=== PATIENT | female | born 1950 | race Caucasian/White ===

== ENCOUNTER 2016-12-31 10:29 | Inpatient (IN) | payer MEDICARE, MEDICAID ==
[~2016-12-31] VITALS: Ht 154.9 cm; Wt 43.1 kg
[~2016-12-31 10:29] MED LIST: AZIT250T PO; DSS100 PO; FLUO-191 PO; FLUT1DIS3 IH; LEVO50 PO; LITH300C3 PO; OMEP20 PO; PRED20 PO; QUET100T PO; VITAD1000 PO
[2016-12-31] MEDS ORDERED: HALOPERIDOL 5 MG TABLET PO PRN (11:30)
[2016-12-31] MEDS ORDERED: LORazepam 1 MG TABLET PO PRN (11:30)
[2016-12-31 11:40] VITALS: BP 125/91
[2016-12-31] MEDS ORDERED: PNEUMOCOCCAL VACCINE POLYVALENT 0.5 ML VIAL [PPSV23] IM ONE (13:15)
[2016-12-31 14:23] VITALS: BP 125/91
[2016-12-31] MEDS ORDERED: FLUT1BLS IH (14:31)
[2016-12-31] MEDS ORDERED: CARV3 PO (14:31)
[2016-12-31] MEDS ORDERED: ESTR-95 PO (14:31)
[2016-12-31] MEDS ORDERED: BUDE10.2 IH (14:31)
[2016-12-31] MEDS ORDERED: AMLO-512 PO (14:31)
[2016-12-31] MEDS ORDERED: ALBU8HFA4 IH (14:31)
[2016-12-31] MEDS ORDERED: PERMETHRIN 5% 60 GM CREAM TP ONE (15:15)
[2016-12-31 16:01] VITALS: BP 136/79
[2016-12-31] MEDS: ALBUTEROL SULFATE HFA 90 MCG/PUFF 8 GM INHALER IH PRN (16:21)
[2016-12-31] MEDS: QUEtiapine FUMARATE 100 MG TABLET PO SCH (17:10)
[2016-12-31] MEDS: LITHIUM CARBONATE 300 MG CAPSULE PO SCH (17:10)
[2017-01-01 01:29] VITALS: BP 108/68
[2017-01-01] MEDS: ALBUTEROL SULFATE HFA 90 MCG/PUFF 8 GM INHALER IH PRN (06:51)
[2017-01-01 07:13] LABS: BASOPHILS % (AUTO) 0.5 % (0.0-2.0); EOSINOPHILS % (AUTO) 2.5 % (1.0-6.0); HEMATOCRIT 42.3 % (36-46); HEMOGLOBIN 14.1 g/dL (12.0-16.0); LYMPHOCYTES # (AUTO) 1.9 K/uL (1.0-4.8); LYMPHOCYTES % (AUTO) 15.8 % (22.0-44.0); MEAN CORPUSCULAR HEMOGLOBIN 29.7 pg (26.0-34.0); MEAN CORPUSCULAR HGB CONC 33.2 G/dL (31.0-37.0); MEAN CORPUSCULAR VOLUME 89 fL (80-100); MONOCYTES # (AUTO) 0.6 K/uL (0.1-1.0); MONOCYTES % (AUTO) 4.7 % (2.0-9.0); NEUTROPHILS # (AUTO) 9.3 K/uL (1.8-7.7); NEUTROPHILS % (AUTO) 76.5 % (40.0-70.0); PLATELET COUNT (AUTO) 310 K/uL (150-450); RED BLOOD CELL COUNT(AUTO) 4.74 MIL/uL (4.00-5.20); RED CELL DISTRIBUTION WIDTH 13.7 % (11.5-14.5); WHITE BLOOD COUNT (AUTO) 12.2 K/uL (4.5-11.0)
[2017-01-01 07:26] LABS: LITHIUM 0.21 mmol/L (0.60-1.20)
[2017-01-01] MEDS ORDERED: BACITRACIN 28.4 GM OINTMENT TP PRN (08:00)
[2017-01-01] MEDS ORDERED: MAG HYDROX/AL HYDROX/SIMETH ES 30 ML SUSPENSION UDCUP PO PRN (08:00)
[2017-01-01] MEDS ORDERED: CloNIDine HCL 0.1 MG TABLET PO PRN (08:00)
[2017-01-01] MEDS ORDERED: MAGNESIUM HYDROXIDE SUSPENSION 30 ML UDCUP PO PRN (08:00)
[2017-01-01] MEDS ORDERED: LOPERAMIDE HCL 2 MG CAPSULE PO PRN (08:00)
[2017-01-01] MEDS ORDERED: PETROLATUM,WHITE 71 GM JELLY TP PRN (08:00)
[2017-01-01] MEDS ORDERED: BENZOCAINE/MENTHOL LOZENGE MM PRN (08:00)
[2017-01-01] MEDS ORDERED: ONDANSETRON HCL 4 MG TABLET PO PRN (08:00)
[2017-01-01 08:09] VITALS: BP 92/47
[2017-01-01 08:15] LABS: ALANINE AMINOTRANSFERASE 13 U/L (12-78); ALBUMIN 3.1 g/dL (3.4-5.0); ANION GAP 8 mmol/L (8-16); ASPARTATE AMINOTRANSFERASE 9 U/L (15-37); BILIRUBIN,TOTAL 0.2 mg/dL (0.1-1.0); CALCIUM, TOTAL 8.7 mg/dL (8.8-10.5); CARBON DIOXIDE 26 mmol/L (22-29); CHLORIDE 109 mmol/L (98-107); CHOL/HDL RATIO 3.2 (3.9-5.7); CREATININE 0.62 mg/dL (0.60-1.30); GLOMERULAR FILTR. RATE CALC > 60 mL/min (>60); POTASSIUM 3.8 mmol/L (3.5-5.1); SODIUM SERUM 143 mmol/L (136-145); TOTAL PROTEIN, SERUM 6.2 g/dL (6.4-8.2); UREA NITROGEN, BLOOD 11 mg/dL (7-18)
[2017-01-01] MEDS: DOCUSATE SODIUM 100 MG CAPSULE PO SCH (08:20)
[2017-01-01] MEDS: CHOLECALCIFEROL (VIT D3) 1,000 UNITS TABLET PO SCH (08:21)
[2017-01-01] MEDS: LITHIUM CARBONATE 300 MG CAPSULE PO SCH ×3 (08:21→16:16)
[2017-01-01] MEDS: QUEtiapine FUMARATE 100 MG TABLET PO SCH ×3 (08:21→16:16)
[2017-01-01] MEDS: OMEPRAZOLE 20 MG CAPSULE PO SCH (08:21)
[2017-01-01] MEDS: FLUoxetine HCL 20 MG CAPSULE PO SCH (08:21)
[2017-01-01 08:31] VITALS: BP 120/72
[2017-01-01] MEDS: AmLODIPine BESYLATE 10 MG TABLET PO SCH (08:36)
[2017-01-01] MEDS ORDERED: PERMETHRIN 5% 60 GM CREAM TP ONE (09:10)
[2017-01-01] MEDS: BUDESONIDE/FORMOTEROL FUMARATE 160-4.5 MCG/PUFF 6.9 GM INHALER IH SCH ×2 (14:34→16:17)
[2017-01-01 16:06] VITALS: BP 100/64
[2017-01-01] MEDS: ESTRADIOL 1 MG TABLET PO SCH (16:17)
[2017-01-01] MEDS: SIMVASTATIN 10 MG TABLET PO SCH (20:03)
[2017-01-02 06:30] VITALS: BP 124/74
[2017-01-02] MEDS: LEVOTHYROXINE SODIUM 50 MCG TABLET PO SCH (06:34)
[2017-01-02] MEDS: ALBUTEROL SULFATE HFA 90 MCG/PUFF 8 GM INHALER IH PRN ×2 (07:09→12:27)
[2017-01-02 08:05] VITALS: BP 117/76
[2017-01-02] MEDS: CHOLECALCIFEROL (VIT D3) 1,000 UNITS TABLET PO SCH (08:26)
[2017-01-02] MEDS: OMEPRAZOLE 20 MG CAPSULE PO SCH (08:26)
[2017-01-02] MEDS: DOCUSATE SODIUM 100 MG CAPSULE PO SCH (08:26)
[2017-01-02] MEDS: ESTRADIOL 1 MG TABLET PO SCH (08:26)
[2017-01-02] MEDS: LITHIUM CARBONATE 300 MG CAPSULE PO SCH ×3 (08:26→16:31)
[2017-01-02] MEDS: QUEtiapine FUMARATE 100 MG TABLET PO SCH ×3 (08:27→16:31)
[2017-01-02] MEDS: AmLODIPine BESYLATE 10 MG TABLET PO SCH (08:27)
[2017-01-02] MEDS: FLUoxetine HCL 20 MG CAPSULE PO SCH (08:27)
[2017-01-02] MEDS: BUDESONIDE/FORMOTEROL FUMARATE 160-4.5 MCG/PUFF 6.9 GM INHALER IH SCH ×2 (08:29→16:31)
[2017-01-02 14:54] VITALS: BP 114/72
[2017-01-02] MEDS: ACETAMINOPHEN 325 MG TABLET PO PRN (14:54)
[2017-01-02 16:06] VITALS: BP_SYST 117; BP_SYST 98; BP_DIAS 57; BP_DIAS 86
[2017-01-02] MEDS: SIMVASTATIN 10 MG TABLET PO SCH (20:29)
[2017-01-03] MEDS: LEVOTHYROXINE SODIUM 50 MCG TABLET PO SCH (06:09)
[2017-01-03 06:24] VITALS: BP 112/71
[2017-01-03] MEDS: FLUoxetine HCL 20 MG CAPSULE PO SCH (08:09)
[2017-01-03] MEDS: QUEtiapine FUMARATE 100 MG TABLET PO SCH ×3 (08:09→16:24)
[2017-01-03] MEDS: CHOLECALCIFEROL (VIT D3) 1,000 UNITS TABLET PO SCH (08:09)
[2017-01-03] MEDS: LITHIUM CARBONATE 300 MG CAPSULE PO SCH ×3 (08:09→16:24)
[2017-01-03] MEDS: DOCUSATE SODIUM 100 MG CAPSULE PO SCH (08:09)
[2017-01-03] MEDS: ESTRADIOL 1 MG TABLET PO SCH (08:09)
[2017-01-03] MEDS: PredniSONE 20 MG TABLET PO SCH (08:09)
[2017-01-03] MEDS: AmLODIPine BESYLATE 10 MG TABLET PO SCH (08:09)
[2017-01-03] MEDS: OMEPRAZOLE 20 MG CAPSULE PO SCH (08:09)
[2017-01-03] MEDS: BUDESONIDE/FORMOTEROL FUMARATE 160-4.5 MCG/PUFF 6.9 GM INHALER IH SCH ×2 (08:12→16:24)
[2017-01-03 08:30] VITALS: BP 113/69
[2017-01-03 09:01] LABS: BASOPHILS # (AUTO) 0.08 K/uL (0.00-0.20); BASOPHILS % (AUTO) 0.8 % (0.0-2.0); EOSINOPHILS # (AUTO) 0.32 K/uL (0.00-0.70); EOSINOPHILS % (AUTO) 3.07 % (1.0-6.0); HEMATOCRIT 43.2 % (36-46); HEMOGLOBIN 14.2 g/dL (12.0-16.0); LYMPHOCYTES # (AUTO) 1.7 K/uL (1.0-4.8); LYMPHOCYTES % (AUTO) 16.1 % (22.0-44.0); MEAN CORPUSCULAR HEMOGLOBIN 29.3 pg (26.0-34.0); MEAN CORPUSCULAR HGB CONC 32.8 G/dL (31.0-37.0); MEAN CORPUSCULAR VOLUME 89 fL (80-100); MONOCYTES # (AUTO) 0.5 K/uL (0.1-1.0); MONOCYTES % (AUTO) 5.1 % (2.0-9.0); NEUTROPHILS # (AUTO) 7.9 K/uL (1.8-7.7); PLATELET COUNT (AUTO) 268 K/uL (150-450); RED BLOOD CELL COUNT(AUTO) 4.83 MIL/uL (4.00-5.20); RED CELL DISTRIBUTION WIDTH 13.7 % (11.5-14.5); WHITE BLOOD COUNT (AUTO) 10.5 K/uL (4.5-11.0)
[2017-01-03 12:19] VITALS: BP 110/70
[2017-01-03] MEDS: ACETAMINOPHEN 325 MG TABLET PO PRN (12:19)
[2017-01-03 16:04] VITALS: BP 128/77
[2017-01-03] MEDS: SIMVASTATIN 10 MG TABLET PO SCH (20:09)
[2017-01-04 01:34] VITALS: BP 115/75
[2017-01-04 06:55] VITALS: BP 117/63
[2017-01-04] MEDS: LEVOTHYROXINE SODIUM 50 MCG TABLET PO SCH (06:59)
[2017-01-04] MEDS: ALBUTEROL SULFATE HFA 90 MCG/PUFF 8 GM INHALER IH PRN ×2 (07:08→15:45)
[2017-01-04] MEDS: ACETAMINOPHEN 325 MG TABLET PO PRN (07:09)
[2017-01-04 08:39] VITALS: BP 114/75
[2017-01-04] MEDS: FLUoxetine HCL 20 MG CAPSULE PO SCH (08:44)
[2017-01-04] MEDS: BUDESONIDE/FORMOTEROL FUMARATE 160-4.5 MCG/PUFF 6.9 GM INHALER IH SCH ×2 (08:44→16:31)
[2017-01-04] MEDS: CHOLECALCIFEROL (VIT D3) 1,000 UNITS TABLET PO SCH (08:45)
[2017-01-04] MEDS: LITHIUM CARBONATE 300 MG CAPSULE PO SCH ×3 (08:45→16:31)
[2017-01-04] MEDS: DOCUSATE SODIUM 100 MG CAPSULE PO SCH (08:45)
[2017-01-04] MEDS: ESTRADIOL 1 MG TABLET PO SCH (08:46)
[2017-01-04] MEDS: OMEPRAZOLE 20 MG CAPSULE PO SCH (08:46)
[2017-01-04] MEDS: QUEtiapine FUMARATE 100 MG TABLET PO SCH ×3 (08:46→16:31)
[2017-01-04] MEDS: PredniSONE 20 MG TABLET PO SCH (08:46)
[2017-01-04] MEDS: AmLODIPine BESYLATE 10 MG TABLET PO SCH (08:53)
[2017-01-04 16:18] VITALS: BP 116/81
[2017-01-04] MEDS: IBUPROFEN 600 MG TABLET PO PRN (16:38)
[2017-01-04] MEDS: SIMVASTATIN 10 MG TABLET PO SCH (20:32)
[2017-01-04] MEDS: ZOLPIDEM TARTRATE 10 MG TABLET PO PRN (22:50)
[2017-01-05 06:13] VITALS: BP 108/76
[2017-01-05] MEDS: IBUPROFEN 600 MG TABLET PO PRN ×2 (06:27→16:42)
[2017-01-05] MEDS: LEVOTHYROXINE SODIUM 50 MCG TABLET PO SCH (06:44)
[2017-01-05 08:01] VITALS: BP 105/50
[2017-01-05] MEDS: DOCUSATE SODIUM 100 MG CAPSULE PO SCH (08:26)
[2017-01-05] MEDS: QUEtiapine FUMARATE 100 MG TABLET PO SCH ×3 (08:27→16:07)
[2017-01-05] MEDS: ESTRADIOL 1 MG TABLET PO SCH (08:27)
[2017-01-05] MEDS: OMEPRAZOLE 20 MG CAPSULE PO SCH (08:27)
[2017-01-05] MEDS: CHOLECALCIFEROL (VIT D3) 1,000 UNITS TABLET PO SCH (08:27)
[2017-01-05] MEDS: PredniSONE 20 MG TABLET PO SCH (08:27)
[2017-01-05] MEDS: FLUoxetine HCL 20 MG CAPSULE PO SCH (08:27)
[2017-01-05] MEDS: LITHIUM CARBONATE 300 MG CAPSULE PO SCH ×3 (08:27→16:07)
[2017-01-05] MEDS: AmLODIPine BESYLATE 10 MG TABLET PO SCH (08:28)
[2017-01-05] MEDS: BUDESONIDE/FORMOTEROL FUMARATE 160-4.5 MCG/PUFF 6.9 GM INHALER IH SCH ×2 (08:31→16:07)
[2017-01-05 09:56] VITALS: BP 108/60
[2017-01-05] MEDS: ACETAMINOPHEN 325 MG TABLET PO PRN (09:56)
[2017-01-05 16:01] VITALS: BP 110/72
[2017-01-05 17:42] VITALS: BP 108/75
[2017-01-05] MEDS: SIMVASTATIN 10 MG TABLET PO SCH (20:55)
[2017-01-05] MEDS: ZOLPIDEM TARTRATE 10 MG TABLET PO PRN (21:39)
[2017-01-06 05:55] VITALS: BP 118/73
[2017-01-06] MEDS: IBUPROFEN 600 MG TABLET PO PRN ×3 (06:04→19:56)
[2017-01-06] MEDS: ALBUTEROL SULFATE HFA 90 MCG/PUFF 8 GM INHALER IH PRN (06:15)
[2017-01-06] MEDS: LEVOTHYROXINE SODIUM 50 MCG TABLET PO SCH (06:17)
[2017-01-06] MEDS: PredniSONE 20 MG TABLET PO SCH (08:19)
[2017-01-06] MEDS: OMEPRAZOLE 20 MG CAPSULE PO SCH (08:19)
[2017-01-06] MEDS: FLUoxetine HCL 20 MG CAPSULE PO SCH (08:19)
[2017-01-06] MEDS: CHOLECALCIFEROL (VIT D3) 1,000 UNITS TABLET PO SCH (08:19)
[2017-01-06] MEDS: DOCUSATE SODIUM 100 MG CAPSULE PO SCH (08:19)
[2017-01-06] MEDS: ESTRADIOL 1 MG TABLET PO SCH (08:19)
[2017-01-06] MEDS: QUEtiapine FUMARATE 100 MG TABLET PO SCH ×3 (08:20→16:45)
[2017-01-06] MEDS: LITHIUM CARBONATE 300 MG CAPSULE PO SCH ×3 (08:20→16:45)
[2017-01-06] MEDS: AmLODIPine BESYLATE 10 MG TABLET PO SCH (08:20)
[2017-01-06] MEDS: BUDESONIDE/FORMOTEROL FUMARATE 160-4.5 MCG/PUFF 6.9 GM INHALER IH SCH ×2 (08:22→16:45)
[2017-01-06 08:49] VITALS: BP 106/72
[2017-01-06 10:18] VITALS: BP 108/68
[2017-01-06] MEDS: ACETAMINOPHEN 325 MG TABLET PO PRN (10:18)
[2017-01-06 16:03] VITALS: BP 108/63
[2017-01-06 19:57] VITALS: BP 117/76
[2017-01-06] MEDS: SIMVASTATIN 10 MG TABLET PO SCH (20:34)
[2017-01-07 06:39] VITALS: BP 133/75
[2017-01-07] MEDS: LEVOTHYROXINE SODIUM 50 MCG TABLET PO SCH (06:46)
[2017-01-07] MEDS: IBUPROFEN 600 MG TABLET PO PRN ×2 (06:46→16:27)
[2017-01-07] MEDS: LITHIUM CARBONATE 300 MG CAPSULE PO SCH ×3 (08:21→16:38)
[2017-01-07] MEDS: OMEPRAZOLE 20 MG CAPSULE PO SCH (08:21)
[2017-01-07] MEDS: BUDESONIDE/FORMOTEROL FUMARATE 160-4.5 MCG/PUFF 6.9 GM INHALER IH SCH ×2 (08:21→16:38)
[2017-01-07] MEDS: FLUoxetine HCL 20 MG CAPSULE PO SCH (08:21)
[2017-01-07] MEDS: ESTRADIOL 1 MG TABLET PO SCH (08:21)
[2017-01-07] MEDS: CHOLECALCIFEROL (VIT D3) 1,000 UNITS TABLET PO SCH (08:21)
[2017-01-07] MEDS: PredniSONE 20 MG TABLET PO SCH (08:21)
[2017-01-07] MEDS: QUEtiapine FUMARATE 100 MG TABLET PO SCH ×3 (08:21→16:38)
[2017-01-07] MEDS: DOCUSATE SODIUM 100 MG CAPSULE PO SCH (08:21)
[2017-01-07] MEDS: AmLODIPine BESYLATE 10 MG TABLET PO SCH (08:22)
[2017-01-07 08:52] VITALS: BP 103/63
[2017-01-07] MEDS: ACETAMINOPHEN 325 MG TABLET PO PRN ×2 (10:10→21:15)
[2017-01-07 11:10] VITALS: BP 106/64
[2017-01-07 16:24] VITALS: BP 131/72
[2017-01-07] MEDS: ALBUTEROL SULFATE HFA 90 MCG/PUFF 8 GM INHALER IH PRN (19:08)
[2017-01-07] MEDS: SIMVASTATIN 10 MG TABLET PO SCH (20:38)
[2017-01-07] MEDS: ZOLPIDEM TARTRATE 10 MG TABLET PO PRN (21:15)
[2017-01-08] VITALS (7 sets, daily range): BP systolic 102–125; BP diastolic 62–82
[2017-01-08] MEDS: IBUPROFEN 600 MG TABLET PO PRN ×3 (06:10→19:28)
[2017-01-08] MEDS: LEVOTHYROXINE SODIUM 50 MCG TABLET PO SCH (06:34)
[2017-01-08] MEDS: CHOLECALCIFEROL (VIT D3) 1,000 UNITS TABLET PO SCH (08:53)
[2017-01-08] MEDS: ESTRADIOL 1 MG TABLET PO SCH (08:53)
[2017-01-08] MEDS: PredniSONE 20 MG TABLET PO SCH (08:53)
[2017-01-08] MEDS: FLUoxetine HCL 20 MG CAPSULE PO SCH (08:54)
[2017-01-08] MEDS: OMEPRAZOLE 20 MG CAPSULE PO SCH (08:54)
[2017-01-08] MEDS: QUEtiapine FUMARATE 100 MG TABLET PO SCH ×3 (08:54→16:46)
[2017-01-08] MEDS: LITHIUM CARBONATE 300 MG CAPSULE PO SCH ×3 (08:54→16:46)
[2017-01-08] MEDS: AmLODIPine BESYLATE 10 MG TABLET PO SCH (08:54)
[2017-01-08] MEDS: DOCUSATE SODIUM 100 MG CAPSULE PO SCH (08:54)
[2017-01-08] MEDS: BUDESONIDE/FORMOTEROL FUMARATE 160-4.5 MCG/PUFF 6.9 GM INHALER IH SCH ×2 (08:55→16:47)
[2017-01-08] MEDS: ACETAMINOPHEN 325 MG TABLET PO PRN ×2 (08:59→22:25)
[2017-01-08] MEDS: ALBUTEROL SULFATE HFA 90 MCG/PUFF 8 GM INHALER IH PRN ×2 (14:19→21:06)
[2017-01-08] MEDS: SIMVASTATIN 10 MG TABLET PO SCH (20:10)
[2017-01-08] MEDS: ZOLPIDEM TARTRATE 10 MG TABLET PO PRN (22:24)
[2017-01-09 05:24] VITALS: BP 121/81
[2017-01-09] MEDS: IBUPROFEN 600 MG TABLET PO PRN ×3 (05:25→20:59)
[2017-01-09] MEDS: ALBUTEROL SULFATE HFA 90 MCG/PUFF 8 GM INHALER IH PRN (06:20)
[2017-01-09] MEDS: LEVOTHYROXINE SODIUM 50 MCG TABLET PO SCH (06:37)
[2017-01-09] MEDS: LITHIUM CARBONATE 300 MG CAPSULE PO SCH ×3 (08:18→16:03)
[2017-01-09] MEDS: AmLODIPine BESYLATE 10 MG TABLET PO SCH (08:18)
[2017-01-09] MEDS: CHOLECALCIFEROL (VIT D3) 1,000 UNITS TABLET PO SCH (08:18)
[2017-01-09] MEDS: OMEPRAZOLE 20 MG CAPSULE PO SCH (08:19)
[2017-01-09] MEDS: FLUoxetine HCL 20 MG CAPSULE PO SCH (08:19)
[2017-01-09] MEDS: ESTRADIOL 1 MG TABLET PO SCH (08:19)
[2017-01-09] MEDS: DOCUSATE SODIUM 100 MG CAPSULE PO SCH (08:19)
[2017-01-09] MEDS: QUEtiapine FUMARATE 100 MG TABLET PO SCH ×3 (08:19→16:04)
[2017-01-09] MEDS: PredniSONE 20 MG TABLET PO SCH (08:19)
[2017-01-09] MEDS: BUDESONIDE/FORMOTEROL FUMARATE 160-4.5 MCG/PUFF 6.9 GM INHALER IH SCH ×2 (08:20→16:03)
[2017-01-09 08:48] VITALS: BP 111/60
[2017-01-09] MEDS: ACETAMINOPHEN 325 MG TABLET PO PRN (09:10)
[2017-01-09 14:35] VITALS: BP 114/66
[2017-01-09 16:14] VITALS: BP 104/65
[2017-01-09 20:59] VITALS: BP 112/71
[2017-01-09] MEDS: ZOLPIDEM TARTRATE 10 MG TABLET PO PRN (20:59)
[2017-01-09] MEDS: SIMVASTATIN 10 MG TABLET PO SCH (20:59)
[2017-01-10] VITALS (7 sets, daily range): BP systolic 103–117; BP diastolic 60–70
[2017-01-10] MEDS: IBUPROFEN 600 MG TABLET PO PRN ×3 (05:40→20:39)
[2017-01-10] MEDS: LEVOTHYROXINE SODIUM 50 MCG TABLET PO SCH (06:33)
[2017-01-10] MEDS: OMEPRAZOLE 20 MG CAPSULE PO SCH (08:17)
[2017-01-10] MEDS: PredniSONE 20 MG TABLET PO SCH (08:17)
[2017-01-10] MEDS: QUEtiapine FUMARATE 100 MG TABLET PO SCH ×3 (08:17→16:55)
[2017-01-10] MEDS: LITHIUM CARBONATE 300 MG CAPSULE PO SCH ×3 (08:17→16:55)
[2017-01-10] MEDS: CHOLECALCIFEROL (VIT D3) 1,000 UNITS TABLET PO SCH (08:17)
[2017-01-10] MEDS: DOCUSATE SODIUM 100 MG CAPSULE PO SCH (08:17)
[2017-01-10] MEDS: ESTRADIOL 1 MG TABLET PO SCH (08:17)
[2017-01-10] MEDS: FLUoxetine HCL 20 MG CAPSULE PO SCH (08:17)
[2017-01-10] MEDS: ACETAMINOPHEN 325 MG TABLET PO PRN ×2 (08:17→16:01)
[2017-01-10] MEDS: AmLODIPine BESYLATE 10 MG TABLET PO SCH (08:20)
[2017-01-10] MEDS: BUDESONIDE/FORMOTEROL FUMARATE 160-4.5 MCG/PUFF 6.9 GM INHALER IH SCH ×2 (08:20→16:55)
[2017-01-10] MEDS ORDERED: ALBUTEROL SULFATE HFA 90 MCG/PUFF 8 GM INHALER IH PRN ×2 (10:30)
[2017-01-10] MEDS: IPRATROPIUM BROMIDE 0.5 MG/2.5 ML NEB SOLUTION NEB PRN (14:21)
[2017-01-10] MEDS: ALBUTEROL SULFATE 2.5 MG/0.5 ML NEB SOLUTION NEB PRN (14:21)
[2017-01-10] MEDS: SIMVASTATIN 10 MG TABLET PO SCH (20:38)
[2017-01-10] MEDS: ZOLPIDEM TARTRATE 10 MG TABLET PO PRN (20:55)
[2017-01-11 00:40] VITALS: BP 106/66
[2017-01-11 03:51] VITALS: BP 123/80
[2017-01-11] MEDS: IBUPROFEN 600 MG TABLET PO PRN ×2 (03:54→16:43)
[2017-01-11 06:37] VITALS: BP 120/68
[2017-01-11] MEDS: ALBUTEROL SULFATE HFA 90 MCG/PUFF 8 GM INHALER IH PRN (06:39)
[2017-01-11] MEDS: ACETAMINOPHEN 325 MG TABLET PO PRN (06:39)
[2017-01-11] MEDS: LEVOTHYROXINE SODIUM 75 MCG TABLET PO SCH ×2 (06:40→16:41)
[2017-01-11] MEDS: DOCUSATE SODIUM 100 MG CAPSULE PO SCH (08:10)
[2017-01-11] MEDS: FLUoxetine HCL 20 MG CAPSULE PO SCH (08:10)
[2017-01-11] MEDS: CHOLECALCIFEROL (VIT D3) 1,000 UNITS TABLET PO SCH (08:10)
[2017-01-11] MEDS: LITHIUM CARBONATE 300 MG CAPSULE PO SCH ×3 (08:10→16:44)
[2017-01-11] MEDS: PredniSONE 20 MG TABLET PO SCH (08:10)
[2017-01-11] MEDS: OMEPRAZOLE 20 MG CAPSULE PO SCH (08:10)
[2017-01-11] MEDS: ESTRADIOL 1 MG TABLET PO SCH (08:10)
[2017-01-11] MEDS: QUEtiapine FUMARATE 100 MG TABLET PO SCH ×3 (08:10→16:41)
[2017-01-11] MEDS: AmLODIPine BESYLATE 10 MG TABLET PO SCH (08:10)
[2017-01-11] MEDS: BUDESONIDE/FORMOTEROL FUMARATE 160-4.5 MCG/PUFF 6.9 GM INHALER IH SCH ×2 (08:11→16:46)
[2017-01-11 08:16] VITALS: BP 132/74
[2017-01-11 16:34] VITALS: BP 123/82
[2017-01-11] MEDS: SIMVASTATIN 10 MG TABLET PO SCH (21:17)
[2017-01-11] MEDS: IPRATROPIUM BROMIDE 0.5 MG/2.5 ML NEB SOLUTION NEB PRN (22:17)
[2017-01-11] MEDS: ALBUTEROL SULFATE 2.5 MG/0.5 ML NEB SOLUTION NEB PRN (22:17)
[2017-01-12] MEDS: ZOLPIDEM TARTRATE 10 MG TABLET PO PRN ×2 (01:43→22:02)
[2017-01-12] MEDS: IBUPROFEN 600 MG TABLET PO PRN ×3 (01:43→18:34)
[2017-01-12 01:44] VITALS: BP 112/70
[2017-01-12] MEDS: LEVOTHYROXINE SODIUM 75 MCG TABLET PO SCH (06:25)
[2017-01-12 08:15] VITALS: BP 94/54
[2017-01-12] MEDS: FLUoxetine HCL 20 MG CAPSULE PO SCH (08:37)
[2017-01-12] MEDS: PredniSONE 20 MG TABLET PO SCH (08:37)
[2017-01-12] MEDS: DOCUSATE SODIUM 100 MG CAPSULE PO SCH (08:37)
[2017-01-12] MEDS: CHOLECALCIFEROL (VIT D3) 1,000 UNITS TABLET PO SCH (08:37)
[2017-01-12] MEDS: OMEPRAZOLE 20 MG CAPSULE PO SCH (08:37)
[2017-01-12] MEDS: LITHIUM CARBONATE 300 MG CAPSULE PO SCH ×3 (08:37→16:39)
[2017-01-12] MEDS: QUEtiapine FUMARATE 100 MG TABLET PO SCH ×3 (08:37→16:39)
[2017-01-12] MEDS: ESTRADIOL 1 MG TABLET PO SCH (08:37)
[2017-01-12] MEDS: AmLODIPine BESYLATE 10 MG TABLET PO SCH (08:38)
[2017-01-12] MEDS: BUDESONIDE/FORMOTEROL FUMARATE 160-4.5 MCG/PUFF 6.9 GM INHALER IH SCH ×2 (08:39→16:39)
[2017-01-12 12:30] VITALS: BP 102/60
[2017-01-12 16:21] VITALS: BP 119/78
[2017-01-12] MEDS: IPRATROPIUM BROMIDE 0.5 MG/2.5 ML NEB SOLUTION NEB PRN (17:45)
[2017-01-12] MEDS: ALBUTEROL SULFATE 2.5 MG/0.5 ML NEB SOLUTION NEB PRN (17:46)
[2017-01-12 18:34] VITALS: BP 112/72
[2017-01-12] MEDS: SIMVASTATIN 10 MG TABLET PO SCH (20:38)
[2017-01-13 06:00] VITALS: BP 123/82
[2017-01-13] MEDS: IBUPROFEN 600 MG TABLET PO PRN ×2 (06:00→21:17)
[2017-01-13] MEDS: LEVOTHYROXINE SODIUM 75 MCG TABLET PO SCH (06:40)
[2017-01-13] MEDS: FLUoxetine HCL 20 MG CAPSULE PO SCH (08:27)
[2017-01-13] MEDS: PredniSONE 20 MG TABLET PO SCH (08:27)
[2017-01-13] MEDS: OMEPRAZOLE 20 MG CAPSULE PO SCH (08:27)
[2017-01-13] MEDS: LITHIUM CARBONATE 300 MG CAPSULE PO SCH ×3 (08:27→16:40)
[2017-01-13] MEDS: ESTRADIOL 1 MG TABLET PO SCH (08:27)
[2017-01-13] MEDS: DOCUSATE SODIUM 100 MG CAPSULE PO SCH (08:27)
[2017-01-13] MEDS: CHOLECALCIFEROL (VIT D3) 1,000 UNITS TABLET PO SCH (08:27)
[2017-01-13] MEDS: QUEtiapine FUMARATE 100 MG TABLET PO SCH ×3 (08:27→16:40)
[2017-01-13] MEDS: AmLODIPine BESYLATE 10 MG TABLET PO SCH (08:28)
[2017-01-13] MEDS: BUDESONIDE/FORMOTEROL FUMARATE 160-4.5 MCG/PUFF 6.9 GM INHALER IH SCH ×2 (08:32→16:40)
[2017-01-13 08:54] VITALS: BP 100/60
[2017-01-13] MEDS: ACETAMINOPHEN 325 MG TABLET PO PRN (09:22)
[2017-01-13 16:35] VITALS: BP 111/66
[2017-01-13] MEDS: SIMVASTATIN 10 MG TABLET PO SCH (20:35)
[2017-01-13 21:17] VITALS: BP 117/62
[2017-01-13] MEDS: ZOLPIDEM TARTRATE 10 MG TABLET PO PRN (21:17)
[2017-01-14 04:08] VITALS: BP 125/85
[2017-01-14] MEDS: IBUPROFEN 600 MG TABLET PO PRN ×2 (04:34→11:08)
[2017-01-14] MEDS: LEVOTHYROXINE SODIUM 75 MCG TABLET PO SCH (06:33)
[2017-01-14] MEDS: ACETAMINOPHEN 325 MG TABLET PO PRN (06:52)
[2017-01-14] MEDS: PredniSONE 20 MG TABLET PO SCH (08:08)
[2017-01-14] MEDS: LITHIUM CARBONATE 300 MG CAPSULE PO SCH ×3 (08:08→17:03)
[2017-01-14] MEDS: ESTRADIOL 1 MG TABLET PO SCH (08:08)
[2017-01-14] MEDS: OMEPRAZOLE 20 MG CAPSULE PO SCH (08:08)
[2017-01-14] MEDS: DOCUSATE SODIUM 100 MG CAPSULE PO SCH (08:08)
[2017-01-14] MEDS: QUEtiapine FUMARATE 100 MG TABLET PO SCH ×3 (08:08→17:03)
[2017-01-14] MEDS: AmLODIPine BESYLATE 10 MG TABLET PO SCH (08:08)
[2017-01-14] MEDS: FLUoxetine HCL 20 MG CAPSULE PO SCH (08:09)
[2017-01-14] MEDS: CHOLECALCIFEROL (VIT D3) 1,000 UNITS TABLET PO SCH (08:09)
[2017-01-14] MEDS: BUDESONIDE/FORMOTEROL FUMARATE 160-4.5 MCG/PUFF 6.9 GM INHALER IH SCH ×2 (08:11→17:04)
[2017-01-14 08:34] VITALS: BP 122/68
[2017-01-14 11:08] VITALS: BP 118/70
[2017-01-14] MEDS: ALBUTEROL SULFATE 2.5 MG/0.5 ML NEB SOLUTION NEB PRN (12:30)
[2017-01-14] MEDS: IPRATROPIUM BROMIDE 0.5 MG/2.5 ML NEB SOLUTION NEB PRN (12:30)
[2017-01-14] MEDS ORDERED: LEVO25TA9 PO (12:59)
[2017-01-14] MEDS ORDERED: PRED20 PO (12:59)
[2017-01-14] MEDS ORDERED: AMLO-512 PO (12:59)
[2017-01-14] MEDS ORDERED: SIMV-259 PO (13:01)
[2017-01-14] MEDS: SIMVASTATIN 10 MG TABLET PO SCH (20:17)
== END 2017-01-14 21:00 | disposition home or self-care (01) | DRG 885 ==
LOC: EDSTATUS 11:22 → B2X 11:38
PROVIDERS: ADMIT Psychiatry & Neurology Psychiatry; ATTEND Psychiatry & Neurology Psychiatry
DX: F25.9 Schizoaffective disorder, unspecified (principal); E46 Unspecified protein-calorie malnutrition; J44.9 Chronic obstructive pulmonary disease, unspecified; Z68.1 Body mass index [BMI] 19.9 or less, adult; E03.9 Hypothyroidism, unspecified; E55.9 Vitamin D deficiency, unspecified; E78.5 Hyperlipidemia, unspecified; G43.909 Migraine, unspecified, not intractable, without status migrainosus; K21.9 Gastro-esophageal reflux disease without esophagitis; I10 Essential (primary) hypertension; F17.200 Nicotine dependence, unspecified, uncomplicated; D72.829 Elevated white blood cell count, unspecified; K59.00 Constipation, unspecified; L30.9 Dermatitis, unspecified; N95.1 Menopausal and female climacteric states; Z76.5 Malingerer [conscious simulation]; Z90.710 Acquired absence of both cervix and uterus; Z79.899 Other long term (current) drug therapy
CPT/HCPCS: 84436; 84439; 84443; 90471; J3535

== ENCOUNTER 2017-02-25 17:50 | Inpatient (IN) | payer MEDICARE, MEDICAID ==
[~2017-02-25] VITALS: Ht 154.9 cm; Wt 47.1 kg
[~2017-02-25 17:50] MED LIST changes: +AMLO-512 PO; -AZIT250T PO; +ESTR-95 PO; -FLUT1DIS3 IH; +LEVO25TA9 PO; -LEVO50 PO; +SIMV-259 PO; -VITAD1000 PO
[2017-02-25] MEDS ORDERED: BACL10TA PO (18:29)
[2017-02-25] MEDS ORDERED: AZIT250T9 PO (18:29)
[2017-02-25] MEDS ORDERED: LEVO75 PO (18:41)
[2017-02-25] MEDS ORDERED: HALOPERIDOL 5 MG TABLET PO PRN (18:45)
[2017-02-25] MEDS ORDERED: LORazepam 1 MG TABLET PO PRN (18:45)
[2017-02-25 19:07] VITALS: BP 137/72
[2017-02-25 19:30] VITALS: BP 124/77
[2017-02-25] MEDS ORDERED: INFLUENZA VIRUS VACCINE QVS 2017-18 (3YR+)/PF 60 MCG/0.5 ML SYRINGE IM ONE (19:30)
[2017-02-25] MEDS ORDERED: PNEUMOCOCCAL VACCINE POLYVALENT 0.5 ML VIAL [PPSV23] IM ONE (19:45)
[2017-02-25] MEDS: QUEtiapine FUMARATE 100 MG TABLET PO SCH (20:11)
[2017-02-25] MEDS: LITHIUM CARBONATE 300 MG CAPSULE PO SCH (20:11)
[2017-02-26] MEDS: LEVOTHYROXINE SODIUM 75 MCG TABLET PO SCH (06:44)
[2017-02-26 06:46] VITALS: BP 121/62
[2017-02-26 08:47] VITALS: BP 118/64
[2017-02-26] MEDS ORDERED: MAGNESIUM HYDROXIDE SUSPENSION 30 ML UDCUP PO PRN (09:00)
[2017-02-26] MEDS ORDERED: CloNIDine HCL 0.1 MG TABLET PO PRN (09:00)
[2017-02-26] MEDS ORDERED: BACITRACIN 28.4 GM OINTMENT TP PRN (09:00)
[2017-02-26] MEDS ORDERED: BENZOCAINE/MENTHOL LOZENGE MM PRN (09:00)
[2017-02-26] MEDS ORDERED: MAG HYDROX/AL HYDROX/SIMETH ES 30 ML SUSPENSION UDCUP PO PRN (09:00)
[2017-02-26] MEDS ORDERED: ONDANSETRON HCL 4 MG TABLET PO PRN (09:00)
[2017-02-26] MEDS ORDERED: PETROLATUM,WHITE 71 GM JELLY TP PRN (09:00)
[2017-02-26] MEDS ORDERED: LOPERAMIDE HCL 2 MG CAPSULE PO PRN (09:00)
[2017-02-26] MEDS: PredniSONE 20 MG TABLET PO SCH (09:09)
[2017-02-26] MEDS: AmLODIPine BESYLATE 10 MG TABLET PO SCH (09:09)
[2017-02-26] MEDS: ESTRADIOL 1 MG TABLET PO SCH (09:09)
[2017-02-26] MEDS: LITHIUM CARBONATE 300 MG CAPSULE PO SCH ×3 (09:09→16:32)
[2017-02-26] MEDS: FLUoxetine HCL 20 MG CAPSULE PO SCH (09:09)
[2017-02-26] MEDS: QUEtiapine FUMARATE 100 MG TABLET PO SCH ×3 (09:10→16:32)
[2017-02-26] MEDS: BACLOFEN 10 MG TABLET PO SCH ×3 (09:10→16:32)
[2017-02-26] MEDS: CHOLECALCIFEROL (VIT D3) 1,000 UNITS TABLET PO SCH (09:12)
[2017-02-26] MEDS: ALBUTEROL SULFATE HFA 90 MCG/PUFF 8 GM INHALER IH PRN ×2 (09:24→16:32)
[2017-02-26 16:48] VITALS: BP 131/93
[2017-02-26] MEDS: SIMVASTATIN 10 MG TABLET PO SCH (21:18)
[2017-02-27] MEDS: LEVOTHYROXINE SODIUM 75 MCG TABLET PO SCH (06:09)
[2017-02-27] MEDS: ALBUTEROL SULFATE HFA 90 MCG/PUFF 8 GM INHALER IH PRN (06:13)
[2017-02-27 06:40] VITALS: BP 108/62
[2017-02-27 08:50] VITALS: BP 114/73
[2017-02-27] MEDS: BACLOFEN 10 MG TABLET PO SCH ×3 (09:05→17:06)
[2017-02-27] MEDS: AmLODIPine BESYLATE 10 MG TABLET PO SCH (09:05)
[2017-02-27] MEDS: LITHIUM CARBONATE 300 MG CAPSULE PO SCH ×3 (09:05→17:06)
[2017-02-27] MEDS: FLUoxetine HCL 20 MG CAPSULE PO SCH (09:05)
[2017-02-27] MEDS: QUEtiapine FUMARATE 100 MG TABLET PO SCH ×3 (09:05→17:06)
[2017-02-27] MEDS: CHOLECALCIFEROL (VIT D3) 1,000 UNITS TABLET PO SCH (09:05)
[2017-02-27] MEDS: ESTRADIOL 1 MG TABLET PO SCH (09:05)
[2017-02-27] MEDS: PredniSONE 20 MG TABLET PO SCH (09:06)
[2017-02-27] MEDS: SIMVASTATIN 10 MG TABLET PO SCH (20:50)
[2017-02-28 06:28] VITALS: BP 120/70
[2017-02-28] MEDS: LEVOTHYROXINE SODIUM 75 MCG TABLET PO SCH (06:38)
[2017-02-28] MEDS: ALBUTEROL SULFATE HFA 90 MCG/PUFF 8 GM INHALER IH PRN ×2 (06:50→09:28)
[2017-02-28] MEDS: IBUPROFEN 600 MG TABLET PO PRN (06:51)
[2017-02-28 08:21] LABS: BASOPHILS # (AUTO) 0.05 K/uL (0.00-0.20); BASOPHILS % (AUTO) 0.3 % (0.0-2.0); EOSINOPHILS # (AUTO) 0.08 K/uL (0.00-0.70); EOSINOPHILS % (AUTO) 0.52 % (1.0-6.0); HEMATOCRIT 42.3 % (36-46); HEMOGLOBIN 13.8 g/dL (12.0-16.0); LYMPHOCYTES # (AUTO) 3.3 K/uL (1.0-4.8); LYMPHOCYTES % (AUTO) 20.9 % (22.0-44.0); MEAN CORPUSCULAR HEMOGLOBIN 29.4 pg (26.0-34.0); MEAN CORPUSCULAR HGB CONC 32.7 G/dL (31.0-37.0); MEAN CORPUSCULAR VOLUME 90 fL (80-100); MONOCYTES # (AUTO) 0.9 K/uL (0.1-1.0); MONOCYTES % (AUTO) 5.8 % (2.0-9.0); NEUTROPHILS # (AUTO) 11.4 K/uL (1.8-7.7); NEUTROPHILS % (AUTO) 72.5 % (40.0-70.0); PLATELET COUNT (AUTO) 343 K/uL (150-450); RED BLOOD CELL COUNT(AUTO) 4.69 MIL/uL (4.00-5.20); RED CELL DISTRIBUTION WIDTH 14.4 % (11.5-14.5); WHITE BLOOD COUNT (AUTO) 15.7 K/uL (4.5-11.0)
[2017-02-28 08:34] VITALS: BP 113/68
[2017-02-28] MEDS: FLUoxetine HCL 20 MG CAPSULE PO SCH (08:53)
[2017-02-28] MEDS: LITHIUM CARBONATE 300 MG CAPSULE PO SCH ×3 (08:54→17:11)
[2017-02-28] MEDS: BACLOFEN 10 MG TABLET PO SCH ×3 (08:54→17:11)
[2017-02-28] MEDS: QUEtiapine FUMARATE 100 MG TABLET PO SCH ×3 (08:54→17:11)
[2017-02-28] MEDS: ESTRADIOL 1 MG TABLET PO SCH (08:54)
[2017-02-28] MEDS: PredniSONE 20 MG TABLET PO SCH (08:54)
[2017-02-28] MEDS: CHOLECALCIFEROL (VIT D3) 1,000 UNITS TABLET PO SCH (08:54)
[2017-02-28] MEDS: AmLODIPine BESYLATE 10 MG TABLET PO SCH (08:54)
[2017-02-28 08:55] LABS: ALANINE AMINOTRANSFERASE 19 U/L (12-78); ALBUMIN 3.1 g/dL (3.4-5.0); ANION GAP 8 mmol/L (8-16); ASPARTATE AMINOTRANSFERASE 9 U/L (15-37); BILIRUBIN,TOTAL 0.3 mg/dL (0.1-1.0); CARBON DIOXIDE 28 mmol/L (22-29); CHLORIDE 107 mmol/L (98-107); CHOL/HDL RATIO 2.2 (3.9-5.7); CREATININE 0.46 mg/dL (0.60-1.30); GLOMERULAR FILTR. RATE CALC > 60 mL/min (>60); POTASSIUM 3.3 mmol/L (3.5-5.1); SODIUM SERUM 143 mmol/L (136-145); THYROID STIMULATING HORMONE 1.04 uIU/mL (0.36-3.74); TOTAL PROTEIN, SERUM 6.3 g/dL (6.4-8.2); UREA NITROGEN, BLOOD 11 mg/dL (7-18)
[2017-02-28] MEDS ORDERED: POTASSIUM CHLORIDE 20 MEQ ER TABLET PO ONE (09:15)
[2017-02-28 16:11] VITALS: BP 107/62
[2017-02-28] MEDS: SIMVASTATIN 10 MG TABLET PO SCH (20:37)
[2017-03-01 06:06] VITALS: BP 130/62
[2017-03-01] MEDS: LEVOTHYROXINE SODIUM 75 MCG TABLET PO SCH (06:48)
[2017-03-01 08:31] VITALS: BP 123/86
[2017-03-01] MEDS: ALBUTEROL SULFATE HFA 90 MCG/PUFF 8 GM INHALER IH PRN (08:48)
[2017-03-01] MEDS: CHOLECALCIFEROL (VIT D3) 1,000 UNITS TABLET PO SCH (09:00)
[2017-03-01] MEDS: ESTRADIOL 1 MG TABLET PO SCH (09:00)
[2017-03-01] MEDS: AmLODIPine BESYLATE 10 MG TABLET PO SCH (09:00)
[2017-03-01] MEDS: LITHIUM CARBONATE 300 MG CAPSULE PO SCH ×3 (09:00→16:34)
[2017-03-01] MEDS: FLUoxetine HCL 20 MG CAPSULE PO SCH (09:00)
[2017-03-01] MEDS: QUEtiapine FUMARATE 100 MG TABLET PO SCH ×3 (09:00→16:34)
[2017-03-01] MEDS: BACLOFEN 10 MG TABLET PO SCH ×3 (09:00→16:34)
[2017-03-01 10:37] VITALS: BP 124/82
[2017-03-01] MEDS: IBUPROFEN 600 MG TABLET PO PRN ×2 (10:37→17:47)
[2017-03-01] MEDS: ACETAMINOPHEN 325 MG TABLET PO PRN (13:41)
[2017-03-01 17:47] VITALS: BP 113/72
[2017-03-01] MEDS: SIMVASTATIN 10 MG TABLET PO SCH (20:46)
[2017-03-02 05:45] VITALS: BP 120/76
[2017-03-02] MEDS: IBUPROFEN 600 MG TABLET PO PRN ×2 (05:51→12:38)
[2017-03-02] MEDS: LEVOTHYROXINE SODIUM 75 MCG TABLET PO SCH (06:21)
[2017-03-02] MEDS: ALBUTEROL SULFATE HFA 90 MCG/PUFF 8 GM INHALER IH PRN (08:06)
[2017-03-02 08:10] VITALS: BP 113/74
[2017-03-02] MEDS: FLUoxetine HCL 20 MG CAPSULE PO SCH (08:13)
[2017-03-02] MEDS: ESTRADIOL 1 MG TABLET PO SCH (08:13)
[2017-03-02] MEDS: AmLODIPine BESYLATE 10 MG TABLET PO SCH (08:13)
[2017-03-02] MEDS: LITHIUM CARBONATE 300 MG CAPSULE PO SCH ×3 (08:13→16:18)
[2017-03-02] MEDS: BACLOFEN 10 MG TABLET PO SCH ×3 (08:13→16:18)
[2017-03-02] MEDS: QUEtiapine FUMARATE 100 MG TABLET PO SCH ×3 (08:13→16:18)
[2017-03-02] MEDS: CHOLECALCIFEROL (VIT D3) 1,000 UNITS TABLET PO SCH (08:13)
[2017-03-02 08:14] LABS: BASOPHILS % (AUTO) 0.5 % (0.0-2.0); HEMATOCRIT 46.1 % (36-46); HEMOGLOBIN 15.3 g/dL (12.0-16.0); LYMPHOCYTES # (AUTO) 2.6 K/uL (1.0-4.8); MEAN CORPUSCULAR HEMOGLOBIN 29.6 pg (26.0-34.0); MEAN CORPUSCULAR HGB CONC 33.2 G/dL (31.0-37.0); MEAN CORPUSCULAR VOLUME 89 fL (80-100); MONOCYTES # (AUTO) 0.7 K/uL (0.1-1.0); MONOCYTES % (AUTO) 4.9 % (2.0-9.0); NEUTROPHILS # (AUTO) 10.9 K/uL (1.8-7.7); NEUTROPHILS % (AUTO) 74.6 % (40.0-70.0); PLATELET COUNT (AUTO) 380 K/uL (150-450); RED BLOOD CELL COUNT(AUTO) 5.16 MIL/uL (4.00-5.20); RED CELL DISTRIBUTION WIDTH 14.4 % (11.5-14.5); WHITE BLOOD COUNT (AUTO) 14.7 K/uL (4.5-11.0)
[2017-03-02 08:38] LABS: POTASSIUM 3.7 mmol/L (3.5-5.1)
[2017-03-02 08:39] LABS: LITHIUM 0.53 mmol/L (0.60-1.20)
[2017-03-02] MEDS: ACETAMINOPHEN 325 MG TABLET PO PRN (09:13)
[2017-03-02] MEDS: ALBUTEROL SULFATE 2.5 MG/0.5 ML NEB SOLUTION NEB PRN (09:14)
[2017-03-02] MEDS: IPRATROPIUM BROMIDE 0.5 MG/2.5 ML NEB SOLUTION NEB PRN (09:14)
[2017-03-02 12:38] VITALS: BP 115/72
[2017-03-02 16:02] VITALS: BP 107/71
[2017-03-02] MEDS: SIMVASTATIN 10 MG TABLET PO SCH (20:19)
[2017-03-03] MEDS: IBUPROFEN 600 MG TABLET PO PRN ×2 (04:40→12:47)
[2017-03-03 04:41] VITALS: BP 110/62
[2017-03-03] MEDS: ALBUTEROL SULFATE HFA 90 MCG/PUFF 8 GM INHALER IH PRN ×2 (04:48→12:31)
[2017-03-03] MEDS: LEVOTHYROXINE SODIUM 75 MCG TABLET PO SCH (06:35)
[2017-03-03 07:35] LABS: BASOPHILS # (AUTO) 0.06 K/uL (0.00-0.20); BASOPHILS % (AUTO) 0.4 % (0.0-2.0); EOSINOPHILS # (AUTO) 0.39 K/uL (0.00-0.70); EOSINOPHILS % (AUTO) 2.37 % (1.0-6.0); HEMATOCRIT 42.7 % (36-46); LYMPHOCYTES # (AUTO) 2.2 K/uL (1.0-4.8); LYMPHOCYTES % (AUTO) 13.6 % (22.0-44.0); MEAN CORPUSCULAR HEMOGLOBIN 29.3 pg (26.0-34.0); MEAN CORPUSCULAR HGB CONC 32.9 G/dL (31.0-37.0); MEAN CORPUSCULAR VOLUME 89 fL (80-100); MONOCYTES # (AUTO) 0.7 K/uL (0.1-1.0); MONOCYTES % (AUTO) 4.1 % (2.0-9.0); NEUTROPHILS % (AUTO) 79.5 % (40.0-70.0); PLATELET COUNT (AUTO) 309 K/uL (150-450); RED BLOOD CELL COUNT(AUTO) 4.79 MIL/uL (4.00-5.20); RED CELL DISTRIBUTION WIDTH 14.6 % (11.5-14.5); WHITE BLOOD COUNT (AUTO) 16.4 K/uL (4.5-11.0)
[2017-03-03] MEDS: CHOLECALCIFEROL (VIT D3) 1,000 UNITS TABLET PO SCH (08:21)
[2017-03-03] MEDS: LITHIUM CARBONATE 300 MG CAPSULE PO SCH ×3 (08:21→16:35)
[2017-03-03] MEDS: BACLOFEN 10 MG TABLET PO SCH ×3 (08:21→16:35)
[2017-03-03] MEDS: AmLODIPine BESYLATE 10 MG TABLET PO SCH (08:21)
[2017-03-03] MEDS: ESTRADIOL 1 MG TABLET PO SCH (08:21)
[2017-03-03] MEDS: FLUoxetine HCL 20 MG CAPSULE PO SCH (08:22)
[2017-03-03] MEDS: QUEtiapine FUMARATE 100 MG TABLET PO SCH ×3 (08:22→16:35)
[2017-03-03 08:38] VITALS: BP 127/71
[2017-03-03 12:47] VITALS: BP 124/74
[2017-03-03 16:09] VITALS: BP 107/65
[2017-03-03] MEDS: SIMVASTATIN 10 MG TABLET PO SCH (20:39)
[2017-03-03] MEDS: ZOLPIDEM TARTRATE 10 MG TABLET PO PRN (22:18)
[2017-03-04 03:45] VITALS: BP 114/74
[2017-03-04] MEDS: IBUPROFEN 600 MG TABLET PO PRN ×3 (03:50→21:11)
[2017-03-04] MEDS: ALBUTEROL SULFATE HFA 90 MCG/PUFF 8 GM INHALER IH PRN (03:57)
[2017-03-04] MEDS: LEVOTHYROXINE SODIUM 75 MCG TABLET PO SCH (07:05)
[2017-03-04] MEDS: ESTRADIOL 1 MG TABLET PO SCH (08:06)
[2017-03-04] MEDS: FLUoxetine HCL 20 MG CAPSULE PO SCH (08:06)
[2017-03-04] MEDS: BACLOFEN 10 MG TABLET PO SCH ×3 (08:06→16:39)
[2017-03-04] MEDS: CHOLECALCIFEROL (VIT D3) 1,000 UNITS TABLET PO SCH (08:07)
[2017-03-04] MEDS: LITHIUM CARBONATE 300 MG CAPSULE PO SCH ×3 (08:07→16:40)
[2017-03-04] MEDS: AmLODIPine BESYLATE 10 MG TABLET PO SCH (08:07)
[2017-03-04] MEDS: QUEtiapine FUMARATE 100 MG TABLET PO SCH ×3 (08:07→16:39)
[2017-03-04 08:18] LABS: BASOPHILS % (AUTO) 0.6 % (0.0-2.0); EOSINOPHILS % (AUTO) 3.4 % (1.0-6.0); HEMATOCRIT 41.2 % (36-46); HEMOGLOBIN 13.9 g/dL (12.0-16.0); LYMPHOCYTES # (AUTO) 2.3 K/uL (1.0-4.8); LYMPHOCYTES % (AUTO) 15.1 % (22.0-44.0); MEAN CORPUSCULAR HEMOGLOBIN 29.6 pg (26.0-34.0); MEAN CORPUSCULAR HGB CONC 33.6 G/dL (31.0-37.0); MEAN CORPUSCULAR VOLUME 88 fL (80-100); MONOCYTES # (AUTO) 0.6 K/uL (0.1-1.0); MONOCYTES % (AUTO) 4.1 % (2.0-9.0); NEUTROPHILS # (AUTO) 11.8 K/uL (1.8-7.7); NEUTROPHILS % (AUTO) 76.8 % (40.0-70.0); PLATELET COUNT (AUTO) 307 K/uL (150-450); RED BLOOD CELL COUNT(AUTO) 4.67 MIL/uL (4.00-5.20); RED CELL DISTRIBUTION WIDTH 14.5 % (11.5-14.5); WHITE BLOOD COUNT (AUTO) 15.3 K/uL (4.5-11.0)
[2017-03-04 08:33] VITALS: BP 111/66
[2017-03-04 10:50] VITALS: BP 112/66
[2017-03-04 16:14] VITALS: BP 109/68
[2017-03-04] MEDS: SIMVASTATIN 10 MG TABLET PO SCH (20:31)
[2017-03-04 21:10] VITALS: BP 117/76
[2017-03-04] MEDS: ZOLPIDEM TARTRATE 10 MG TABLET PO PRN (21:11)
[2017-03-05 03:00] VITALS: BP 108/74
[2017-03-05] MEDS: ACETAMINOPHEN 325 MG TABLET PO PRN (03:07)
[2017-03-05] MEDS: IBUPROFEN 600 MG TABLET PO PRN ×2 (04:28→20:32)
[2017-03-05] MEDS: LEVOTHYROXINE SODIUM 75 MCG TABLET PO SCH (06:51)
[2017-03-05] MEDS: LITHIUM CARBONATE 300 MG CAPSULE PO SCH ×3 (08:13→16:24)
[2017-03-05] MEDS: FLUoxetine HCL 20 MG CAPSULE PO SCH (08:13)
[2017-03-05] MEDS: ESTRADIOL 1 MG TABLET PO SCH (08:13)
[2017-03-05] MEDS: CHOLECALCIFEROL (VIT D3) 1,000 UNITS TABLET PO SCH (08:13)
[2017-03-05] MEDS: AmLODIPine BESYLATE 10 MG TABLET PO SCH (08:13)
[2017-03-05] MEDS: BACLOFEN 10 MG TABLET PO SCH ×3 (08:13→16:25)
[2017-03-05] MEDS: QUEtiapine FUMARATE 100 MG TABLET PO SCH ×3 (08:13→16:24)
[2017-03-05 08:20] VITALS: BP 114/71
[2017-03-05 16:05] VITALS: BP 110/73
[2017-03-05 20:32] VITALS: BP 118/68
[2017-03-05] MEDS: SIMVASTATIN 10 MG TABLET PO SCH (20:33)
[2017-03-05] MEDS: ZOLPIDEM TARTRATE 10 MG TABLET PO PRN (21:52)
[2017-03-06] MEDS: IBUPROFEN 600 MG TABLET PO PRN ×3 (03:26→22:23)
[2017-03-06 03:29] VITALS: BP 110/73
[2017-03-06] MEDS: LEVOTHYROXINE SODIUM 75 MCG TABLET PO SCH (06:40)
[2017-03-06] MEDS: BACLOFEN 10 MG TABLET PO SCH ×3 (08:17→16:11)
[2017-03-06] MEDS: LITHIUM CARBONATE 300 MG CAPSULE PO SCH ×3 (08:17→16:12)
[2017-03-06] MEDS: ESTRADIOL 1 MG TABLET PO SCH (08:17)
[2017-03-06] MEDS: CHOLECALCIFEROL (VIT D3) 1,000 UNITS TABLET PO SCH (08:17)
[2017-03-06] MEDS: QUEtiapine FUMARATE 100 MG TABLET PO SCH ×3 (08:17→16:11)
[2017-03-06] MEDS: FLUoxetine HCL 20 MG CAPSULE PO SCH (08:18)
[2017-03-06] MEDS: AmLODIPine BESYLATE 10 MG TABLET PO SCH (08:21)
[2017-03-06 08:29] VITALS: BP 102/60
[2017-03-06 13:01] VITALS: BP 108/62
[2017-03-06] MEDS: IPRATROPIUM BROMIDE 0.5 MG/2.5 ML NEB SOLUTION NEB PRN (13:01)
[2017-03-06] MEDS: ALBUTEROL SULFATE 2.5 MG/0.5 ML NEB SOLUTION NEB PRN (13:01)
[2017-03-06 16:11] VITALS: BP 105/65
[2017-03-06] MEDS: ALBUTEROL SULFATE HFA 90 MCG/PUFF 8 GM INHALER IH PRN (18:37)
[2017-03-06] MEDS: SIMVASTATIN 10 MG TABLET PO SCH (20:16)
[2017-03-06] MEDS: ZOLPIDEM TARTRATE 10 MG TABLET PO PRN (22:12)
[2017-03-06 22:23] VITALS: BP 110/66
[2017-03-07 03:25] VITALS: BP 113/71
[2017-03-07] MEDS: ACETAMINOPHEN 325 MG TABLET PO PRN (03:25)
[2017-03-07 04:20] VITALS: BP 113/61
[2017-03-07] MEDS: IBUPROFEN 600 MG TABLET PO PRN ×2 (04:24→12:19)
[2017-03-07] MEDS: LEVOTHYROXINE SODIUM 75 MCG TABLET PO SCH (06:42)
[2017-03-07 08:09] LABS: BASOPHILS % (AUTO) 0.3 % (0.0-2.0); HEMATOCRIT 36.7 % (36-46); HEMOGLOBIN 12.3 g/dL (12.0-16.0); LYMPHOCYTES # (AUTO) 2.6 K/uL (1.0-4.8); LYMPHOCYTES % (AUTO) 14.7 % (22.0-44.0); MEAN CORPUSCULAR HEMOGLOBIN 29.8 pg (26.0-34.0); MEAN CORPUSCULAR HGB CONC 33.6 G/dL (31.0-37.0); MEAN CORPUSCULAR VOLUME 89 fL (80-100); MONOCYTES # (AUTO) 0.8 K/uL (0.1-1.0); MONOCYTES % (AUTO) 4.5 % (2.0-9.0); NEUTROPHILS # (AUTO) 13.5 K/uL (1.8-7.7); NEUTROPHILS % (AUTO) 76.5 % (40.0-70.0); PLATELET COUNT (AUTO) 290 K/uL (150-450); RED BLOOD CELL COUNT(AUTO) 4.13 MIL/uL (4.00-5.20); RED CELL DISTRIBUTION WIDTH 14.8 % (11.5-14.5); WHITE BLOOD COUNT (AUTO) 17.7 K/uL (4.5-11.0)
[2017-03-07] MEDS: LITHIUM CARBONATE 300 MG CAPSULE PO SCH ×3 (08:24→16:48)
[2017-03-07] MEDS: FLUoxetine HCL 20 MG CAPSULE PO SCH (08:24)
[2017-03-07] MEDS: AmLODIPine BESYLATE 10 MG TABLET PO SCH (08:24)
[2017-03-07] MEDS: BACLOFEN 10 MG TABLET PO SCH ×3 (08:25→16:48)
[2017-03-07] MEDS: ESTRADIOL 1 MG TABLET PO SCH (08:25)
[2017-03-07] MEDS: CHOLECALCIFEROL (VIT D3) 1,000 UNITS TABLET PO SCH (08:25)
[2017-03-07] MEDS: QUEtiapine FUMARATE 100 MG TABLET PO SCH ×3 (08:25→16:48)
[2017-03-07 08:38] VITALS: BP 114/69
[2017-03-07 12:19] VITALS: BP 116/70
[2017-03-07] MEDS: ALBUTEROL SULFATE HFA 90 MCG/PUFF 8 GM INHALER IH PRN (13:25)
[2017-03-07 16:53] VITALS: BP 118/67
[2017-03-07] MEDS: SIMVASTATIN 10 MG TABLET PO SCH (20:40)
[2017-03-08 00:19] VITALS: BP 102/61
[2017-03-08 02:55] VITALS: BP 110/65
[2017-03-08] MEDS: ALBUTEROL SULFATE HFA 90 MCG/PUFF 8 GM INHALER IH PRN ×2 (03:00→21:35)
[2017-03-08] MEDS: IBUPROFEN 600 MG TABLET PO PRN ×2 (03:00→11:21)
[2017-03-08] MEDS: ACETAMINOPHEN 325 MG TABLET PO PRN (05:42)
[2017-03-08] MEDS: LEVOTHYROXINE SODIUM 75 MCG TABLET PO SCH (06:36)
[2017-03-08] MEDS: LITHIUM CARBONATE 300 MG CAPSULE PO SCH ×3 (08:12→16:40)
[2017-03-08] MEDS: AmLODIPine BESYLATE 10 MG TABLET PO SCH (08:12)
[2017-03-08] MEDS: QUEtiapine FUMARATE 100 MG TABLET PO SCH ×3 (08:12→16:40)
[2017-03-08] MEDS: FLUoxetine HCL 20 MG CAPSULE PO SCH (08:12)
[2017-03-08] MEDS: CHOLECALCIFEROL (VIT D3) 1,000 UNITS TABLET PO SCH (08:12)
[2017-03-08] MEDS: ESTRADIOL 1 MG TABLET PO SCH (08:12)
[2017-03-08] MEDS: BACLOFEN 10 MG TABLET PO SCH ×3 (08:12→16:40)
[2017-03-08 08:15] VITALS: BP 129/72
[2017-03-08 11:21] VITALS: BP 118/74
[2017-03-08 16:29] VITALS: BP 114/69
[2017-03-08] MEDS: SIMVASTATIN 10 MG TABLET PO SCH (20:29)
[2017-03-09 00:01] VITALS: BP 106/64
[2017-03-09] MEDS: ZOLPIDEM TARTRATE 10 MG TABLET PO PRN ×2 (00:05→22:42)
[2017-03-09] MEDS: IBUPROFEN 600 MG TABLET PO PRN ×4 (00:05→22:43)
[2017-03-09] MEDS: LEVOTHYROXINE SODIUM 75 MCG TABLET PO SCH (06:26)
[2017-03-09 08:06] VITALS: BP 115/61
[2017-03-09] MEDS: AmLODIPine BESYLATE 10 MG TABLET PO SCH (08:58)
[2017-03-09] MEDS: ESTRADIOL 1 MG TABLET PO SCH (08:58)
[2017-03-09] MEDS: CHOLECALCIFEROL (VIT D3) 1,000 UNITS TABLET PO SCH (08:58)
[2017-03-09] MEDS: QUEtiapine FUMARATE 100 MG TABLET PO SCH ×3 (08:58→16:33)
[2017-03-09] MEDS: LITHIUM CARBONATE 300 MG CAPSULE PO SCH ×3 (08:58→16:33)
[2017-03-09] MEDS: FLUoxetine HCL 20 MG CAPSULE PO SCH (08:58)
[2017-03-09] MEDS: BACLOFEN 10 MG TABLET PO SCH ×3 (08:58→16:33)
[2017-03-09 12:24] VITALS: BP 116/70
[2017-03-09 16:02] VITALS: BP 102/60
[2017-03-09] MEDS: SIMVASTATIN 10 MG TABLET PO SCH (20:30)
[2017-03-09] MEDS: ALBUTEROL SULFATE HFA 90 MCG/PUFF 8 GM INHALER IH PRN (22:44)
[2017-03-09 22:45] VITALS: BP 114/67
[2017-03-10 01:22] VITALS: BP 102/66
[2017-03-10] MEDS: IPRATROPIUM BROMIDE 0.5 MG/2.5 ML NEB SOLUTION NEB PRN ×2 (03:55→12:48)
[2017-03-10 05:48] VITALS: BP 136/72
[2017-03-10] MEDS: LEVOTHYROXINE SODIUM 75 MCG TABLET PO SCH (05:48)
[2017-03-10] MEDS: IBUPROFEN 600 MG TABLET PO PRN ×2 (05:48→12:48)
[2017-03-10] MEDS: CHOLECALCIFEROL (VIT D3) 1,000 UNITS TABLET PO SCH (08:22)
[2017-03-10] MEDS: LITHIUM CARBONATE 300 MG CAPSULE PO SCH ×3 (08:22→16:35)
[2017-03-10] MEDS: AmLODIPine BESYLATE 10 MG TABLET PO SCH (08:22)
[2017-03-10] MEDS: ESTRADIOL 1 MG TABLET PO SCH (08:23)
[2017-03-10] MEDS: FLUoxetine HCL 20 MG CAPSULE PO SCH (08:23)
[2017-03-10] MEDS: QUEtiapine FUMARATE 100 MG TABLET PO SCH ×3 (08:23→16:35)
[2017-03-10] MEDS: BACLOFEN 10 MG TABLET PO SCH ×3 (08:23→16:35)
[2017-03-10 08:38] VITALS: BP 122/72
[2017-03-10 12:48] VITALS: BP 118/72
[2017-03-10] MEDS: ALBUTEROL SULFATE 2.5 MG/0.5 ML NEB SOLUTION NEB PRN (12:48)
[2017-03-10 16:18] VITALS: BP 114/66
[2017-03-10] MEDS: SIMVASTATIN 10 MG TABLET PO SCH (20:33)
[2017-03-11] MEDS: ZOLPIDEM TARTRATE 10 MG TABLET PO PRN (02:43)
[2017-03-11] MEDS: IBUPROFEN 600 MG TABLET PO PRN ×2 (02:44→09:41)
[2017-03-11] MEDS: LEVOTHYROXINE SODIUM 75 MCG TABLET PO SCH (06:13)
[2017-03-11 08:42] VITALS: BP 120/79
[2017-03-11] MEDS: BACLOFEN 10 MG TABLET PO SCH ×3 (08:51→17:08)
[2017-03-11] MEDS: CHOLECALCIFEROL (VIT D3) 1,000 UNITS TABLET PO SCH (08:51)
[2017-03-11] MEDS: QUEtiapine FUMARATE 100 MG TABLET PO SCH ×3 (08:52→17:08)
[2017-03-11] MEDS: ESTRADIOL 1 MG TABLET PO SCH (08:52)
[2017-03-11] MEDS: LITHIUM CARBONATE 300 MG CAPSULE PO SCH ×3 (08:52→17:08)
[2017-03-11] MEDS: AmLODIPine BESYLATE 10 MG TABLET PO SCH (08:53)
[2017-03-11] MEDS: FLUoxetine HCL 20 MG CAPSULE PO SCH (08:53)
[2017-03-11] MEDS: ALBUTEROL SULFATE HFA 90 MCG/PUFF 8 GM INHALER IH PRN (09:41)
[2017-03-11 16:03] VITALS: BP 102/60
[2017-03-11] MEDS: SIMVASTATIN 10 MG TABLET PO SCH (20:22)
[2017-03-12 02:43] VITALS: BP 128/83
[2017-03-12] MEDS: ALBUTEROL SULFATE HFA 90 MCG/PUFF 8 GM INHALER IH PRN (02:49)
[2017-03-12] MEDS: IBUPROFEN 600 MG TABLET PO PRN (02:49)
[2017-03-12] MEDS: LEVOTHYROXINE SODIUM 75 MCG TABLET PO SCH (06:23)
[2017-03-12] MEDS: ACETAMINOPHEN 325 MG TABLET PO PRN (06:35)
[2017-03-12 08:24] VITALS: BP 114/63
[2017-03-12] MEDS: BACLOFEN 10 MG TABLET PO SCH ×2 (08:35→12:26)
[2017-03-12] MEDS: ESTRADIOL 1 MG TABLET PO SCH (08:35)
[2017-03-12] MEDS: FLUoxetine HCL 20 MG CAPSULE PO SCH (08:35)
[2017-03-12] MEDS: QUEtiapine FUMARATE 100 MG TABLET PO SCH ×2 (08:35→12:29)
[2017-03-12] MEDS: CHOLECALCIFEROL (VIT D3) 1,000 UNITS TABLET PO SCH (08:39)
[2017-03-12] MEDS: LITHIUM CARBONATE 300 MG CAPSULE PO SCH ×2 (08:39→12:29)
[2017-03-12] MEDS: AmLODIPine BESYLATE 10 MG TABLET PO SCH (08:39)
[2017-03-12] MEDS ORDERED: FLUO-191 PO (11:26)
[2017-03-12] MEDS ORDERED: VITAD1000 PO (11:26)
== END 2017-03-12 13:05 | disposition home or self-care (01) | DRG 885 ==
LOC: B2X 18:30
PROVIDERS: ATTEND Psychiatry & Neurology Psychiatry
PROC: 3E0234Z Introduction of Serum, Toxoid and Vaccine into Muscle, Percutaneous Approach (ICD-10-PCS; principal; 2017-02-25)
DX: F25.1 Schizoaffective disorder, depressive type (principal); R45.851 Suicidal ideations; J44.9 Chronic obstructive pulmonary disease, unspecified; Z59.0 Homelessness; E03.9 Hypothyroidism, unspecified; Z23 Encounter for immunization; E55.9 Vitamin D deficiency, unspecified; E78.5 Hyperlipidemia, unspecified; F17.200 Nicotine dependence, unspecified, uncomplicated; I10 Essential (primary) hypertension; K21.9 Gastro-esophageal reflux disease without esophagitis; K59.00 Constipation, unspecified; M19.90 Unspecified osteoarthritis, unspecified site; Z90.710 Acquired absence of both cervix and uterus; Z91.5 Personal history of self-harm; G89.29 Other chronic pain; M54.9 Dorsalgia, unspecified; M79.606 Pain in leg, unspecified; Z56.0 Unemployment, unspecified; Z79.899 Other long term (current) drug therapy; D72.829 Elevated white blood cell count, unspecified
CPT/HCPCS: 71020; 82306; 84132; 84436; 84439; 84443; 90471; J3535

== ENCOUNTER 2017-06-08 19:22 | Inpatient (IN) | payer MEDICARE, MEDICAID ==
[~2017-06-08] VITALS: Ht 152.4 cm; Wt 46.9 kg
[~2017-06-08 19:22] MED LIST changes: +BACL10TA PO; -DSS100 PO; -LEVO25TA9 PO; +LEVO75 PO; -OMEP20 PO; -PRED20 PO; +VITAD1000 PO
[2017-06-08] MEDS ORDERED: ZOLPIDEM TARTRATE 10 MG TABLET PO PRN (19:45)
[2017-06-08] MEDS ORDERED: HALOPERIDOL 5 MG TABLET PO PRN (19:45)
[2017-06-08] MEDS ORDERED: -PHARMACY VACCINE NOTE- MISC ONE (20:15)
[2017-06-08 20:19] VITALS: BP 125/83
[2017-06-09 04:23] VITALS: BP 137/90
[2017-06-09] MEDS: LORazepam 2 MG TABLET PO PRN (04:28)
[2017-06-09] MEDS ORDERED: ALBUTEROL SULFATE HFA 90 MCG/PUFF 8 GM INHALER IH PRN (05:45)
[2017-06-09 08:12] LABS: BASOPHILS % (AUTO) 0.3 % (0.0-2.0); EOSINOPHILS % (AUTO) 0.5 % (1.0-6.0); HEMATOCRIT 40.3 % (36-46); HEMOGLOBIN 13.3 g/dL (12.0-16.0); LYMPHOCYTES # (AUTO) 2.5 K/uL (1.0-4.8); LYMPHOCYTES % (AUTO) 17.6 % (22.0-44.0); MEAN CORPUSCULAR HEMOGLOBIN 28.6 pg (26.0-34.0); MEAN CORPUSCULAR HGB CONC 32.9 G/dL (31.0-37.0); MEAN CORPUSCULAR VOLUME 87 fL (80-100); MONOCYTES # (AUTO) 0.8 K/uL (0.1-1.0); MONOCYTES % (AUTO) 5.7 % (2.0-9.0); NEUTROPHILS # (AUTO) 10.8 K/uL (1.8-7.7); NEUTROPHILS % (AUTO) 75.9 % (40.0-70.0); PLATELET COUNT (AUTO) 411 K/uL (150-450); RED BLOOD CELL COUNT(AUTO) 4.63 MIL/uL (4.00-5.20); RED CELL DISTRIBUTION WIDTH 14.9 % (11.5-14.5)
[2017-06-09 08:17] VITALS: BP 117/83
[2017-06-09 08:40] LABS: ALANINE AMINOTRANSFERASE 16 U/L (12-78); ALBUMIN 2.9 g/dL (3.4-5.0); ALKALINE PHOSPHATASE 108 U/L (46-116); ANION GAP 11 mmol/L (8-16); ASPARTATE AMINOTRANSFERASE 9 U/L (15-37); BILIRUBIN,TOTAL 0.1 mg/dL (0.1-1.0); CALCIUM, TOTAL 8.2 mg/dL (8.8-10.5); CARBON DIOXIDE 27 mmol/L (22-29); CHLORIDE 106 mmol/L (98-107); CHOL/HDL RATIO 2.1 (3.9-5.7); CHOLESTEROL 173 mg/dL (131-200); CREATININE 0.43 mg/dL (0.60-1.30); FREE T4 (FREE THYROXINE) 0.76 ng/dL (0.76-1.46); GLOMERULAR FILTR. RATE CALC > 60 mL/min (>60); GLUCOSE,RANDOM 90 mg/dL (70-110); HDL CHOLESTEROL 82 mg/dL (40-60); LDL CHOL (CALC.) 76 mg/dL (0-130); POTASSIUM 3.3 mmol/L (3.5-5.1); SODIUM SERUM 144 mmol/L (136-145); THYROID STIMULATING HORMONE 1.77 uIU/mL (0.36-3.74); TOTAL PROTEIN, SERUM 5.8 g/dL (6.4-8.2); TRIGLYCERIDES 75 mg/dL (15-150); UREA NITROGEN, BLOOD 13 mg/dL (7-18)
[2017-06-09 08:53] LABS: HEMOGLOBIN A1C 5.9 % (4.5-6.2)
[2017-06-09] MEDS: FLUoxetine HCL 20 MG CAPSULE PO SCH (09:40)
[2017-06-09] MEDS: IBUPROFEN 600 MG TABLET PO PRN (09:46)
[2017-06-09] MEDS ORDERED: ONDANSETRON HCL 4 MG TABLET PO PRN (10:30)
[2017-06-09] MEDS ORDERED: LOPERAMIDE HCL 2 MG CAPSULE PO PRN (10:30)
[2017-06-09] MEDS ORDERED: CloNIDine HCL 0.1 MG TABLET PO PRN (10:30)
[2017-06-09] MEDS ORDERED: BACITRACIN 28.4 GM OINTMENT TP PRN (10:30)
[2017-06-09] MEDS ORDERED: BENZOCAINE/MENTHOL LOZENGE MM PRN (10:30)
[2017-06-09] MEDS ORDERED: MAGNESIUM HYDROXIDE SUSPENSION 30 ML UDCUP PO PRN (10:30)
[2017-06-09] MEDS ORDERED: POTASSIUM CHLORIDE 20 MEQ ER TABLET PO ONE (10:30)
[2017-06-09] MEDS ORDERED: PETROLATUM,WHITE 71 GM JELLY TP PRN (10:30)
[2017-06-09] MEDS ORDERED: MAG HYDROX/AL HYDROX/SIMETH ES 30 ML SUSPENSION UDCUP PO PRN (10:30)
[2017-06-09] MEDS ORDERED: SUMAtriptan SUCCINATE 25 MG TABLET PO PRN (10:30)
[2017-06-09] MEDS: QUEtiapine FUMARATE 100 MG TABLET PO SCH ×2 (12:28→16:35)
[2017-06-09] MEDS: LITHIUM CARBONATE 300 MG CAPSULE PO SCH ×2 (12:28→16:35)
[2017-06-09 16:12] VITALS: BP 102/62
[2017-06-10 05:16] VITALS: BP 140/80
[2017-06-10] MEDS: IBUPROFEN 600 MG TABLET PO PRN ×2 (05:21→16:23)
[2017-06-10] MEDS: ALBUTEROL SULFATE HFA 90 MCG/PUFF 8 GM INHALER IH PRN (05:22)
[2017-06-10] MEDS: LEVOTHYROXINE SODIUM 25 MCG TABLET PO SCH (06:30)
[2017-06-10 08:05] VITALS: BP 117/76
[2017-06-10] MEDS: MULTIVITAMINS WITH MINERALS, THERAPEUTIC TABLET PO SCH (08:06)
[2017-06-10] MEDS: LITHIUM CARBONATE 300 MG CAPSULE PO SCH ×3 (08:06→16:44)
[2017-06-10] MEDS: CHOLECALCIFEROL (VIT D3) 1,000 UNITS TABLET PO SCH (08:06)
[2017-06-10] MEDS: OMEPRAZOLE 20 MG CAPSULE PO SCH (08:06)
[2017-06-10] MEDS: FLUoxetine HCL 20 MG CAPSULE PO SCH (08:06)
[2017-06-10] MEDS: DOCUSATE SODIUM 100 MG CAPSULE PO SCH (08:06)
[2017-06-10] MEDS: ESTRADIOL 1 MG TABLET PO SCH (08:06)
[2017-06-10] MEDS: QUEtiapine FUMARATE 100 MG TABLET PO SCH ×3 (08:06→16:44)
[2017-06-10 08:34] LABS: BASOPHILS % (AUTO) 0.6 % (0.0-2.0); EOSINOPHILS % (AUTO) 3.9 % (1.0-6.0); HEMATOCRIT 42.8 % (36-46); LYMPHOCYTES # (AUTO) 3.2 K/uL (1.0-4.8); LYMPHOCYTES % (AUTO) 29.8 % (22.0-44.0); MEAN CORPUSCULAR HEMOGLOBIN 28.6 pg (26.0-34.0); MEAN CORPUSCULAR HGB CONC 32.6 G/dL (31.0-37.0); MEAN CORPUSCULAR VOLUME 88 fL (80-100); MONOCYTES # (AUTO) 0.8 K/uL (0.1-1.0); MONOCYTES % (AUTO) 7.4 % (2.0-9.0); NEUTROPHILS # (AUTO) 6.3 K/uL (1.8-7.7); NEUTROPHILS % (AUTO) 58.3 % (40.0-70.0); PLATELET COUNT (AUTO) 360 K/uL (150-450); RED CELL DISTRIBUTION WIDTH 15.2 % (11.5-14.5)
[2017-06-10 10:22] VITALS: BP 114/78
[2017-06-10] MEDS: ACETAMINOPHEN 325 MG TABLET PO PRN (10:22)
[2017-06-10] MEDS ORDERED: 0.9% SODIUM CHLORIDE 5 ML NEB SOLUTION NEB PRN (13:30)
[2017-06-10] MEDS ORDERED: ALBUTEROL SULFATE 2.5 MG/0.5 ML NEB SOLUTION NEB PRN (13:45)
[2017-06-10 16:20] VITALS: BP 101/67
[2017-06-11 06:06] VITALS: BP 138/89
[2017-06-11] MEDS: LEVOTHYROXINE SODIUM 25 MCG TABLET PO SCH (06:39)
[2017-06-11] MEDS: IBUPROFEN 600 MG TABLET PO PRN ×2 (06:39→16:17)
[2017-06-11] MEDS: ALBUTEROL SULFATE HFA 90 MCG/PUFF 8 GM INHALER IH PRN ×2 (06:39→16:06)
[2017-06-11 08:00] VITALS: BP 119/79
[2017-06-11] MEDS: CHOLECALCIFEROL (VIT D3) 1,000 UNITS TABLET PO SCH (08:08)
[2017-06-11] MEDS: LITHIUM CARBONATE 300 MG CAPSULE PO SCH ×3 (08:08→17:08)
[2017-06-11] MEDS: DOCUSATE SODIUM 100 MG CAPSULE PO SCH (08:08)
[2017-06-11] MEDS: ESTRADIOL 1 MG TABLET PO SCH (08:08)
[2017-06-11] MEDS: MULTIVITAMINS WITH MINERALS, THERAPEUTIC TABLET PO SCH (08:08)
[2017-06-11] MEDS: FLUoxetine HCL 20 MG CAPSULE PO SCH (08:08)
[2017-06-11] MEDS: QUEtiapine FUMARATE 100 MG TABLET PO SCH ×3 (08:09→17:08)
[2017-06-11] MEDS: OMEPRAZOLE 20 MG CAPSULE PO SCH (08:09)
[2017-06-11 16:16] VITALS: BP 109/66
[2017-06-12] MEDS: LEVOTHYROXINE SODIUM 25 MCG TABLET PO SCH (06:13)
[2017-06-12 06:29] VITALS: BP 107/70
[2017-06-12] MEDS: IBUPROFEN 600 MG TABLET PO PRN ×2 (06:29→16:03)
[2017-06-12] MEDS: ALBUTEROL SULFATE HFA 90 MCG/PUFF 8 GM INHALER IH PRN (06:30)
[2017-06-12] MEDS: FLUoxetine HCL 20 MG CAPSULE PO SCH (08:14)
[2017-06-12] MEDS: QUEtiapine FUMARATE 100 MG TABLET PO SCH ×3 (08:14→16:59)
[2017-06-12] MEDS: LITHIUM CARBONATE 300 MG CAPSULE PO SCH ×3 (08:14→16:59)
[2017-06-12] MEDS: OMEPRAZOLE 20 MG CAPSULE PO SCH (08:14)
[2017-06-12] MEDS: MULTIVITAMINS WITH MINERALS, THERAPEUTIC TABLET PO SCH (08:15)
[2017-06-12] MEDS: ESTRADIOL 1 MG TABLET PO SCH (08:15)
[2017-06-12] MEDS: CHOLECALCIFEROL (VIT D3) 1,000 UNITS TABLET PO SCH (08:15)
[2017-06-12] MEDS: DOCUSATE SODIUM 100 MG CAPSULE PO SCH (08:15)
[2017-06-12 08:39] VITALS: BP 110/64
[2017-06-12 16:19] VITALS: BP 121/75
[2017-06-12] MEDS: ALBUTEROL SULFATE 2.5 MG/0.5 ML NEB SOLUTION NEB PRN (16:28)
[2017-06-12] MEDS: IPRATROPIUM BROMIDE 0.5 MG/2.5 ML NEB SOLUTION NEB PRN (16:28)
[2017-06-13 01:17] VITALS: BP 115/75
[2017-06-13 04:36] VITALS: BP 128/72
[2017-06-13] MEDS: IBUPROFEN 600 MG TABLET PO PRN ×2 (04:39→15:10)
[2017-06-13] MEDS: ALBUTEROL SULFATE HFA 90 MCG/PUFF 8 GM INHALER IH PRN ×2 (04:39→17:21)
[2017-06-13] MEDS: LEVOTHYROXINE SODIUM 25 MCG TABLET PO SCH (06:08)
[2017-06-13] MEDS: CHOLECALCIFEROL (VIT D3) 1,000 UNITS TABLET PO SCH (08:14)
[2017-06-13] MEDS: MULTIVITAMINS WITH MINERALS, THERAPEUTIC TABLET PO SCH (08:14)
[2017-06-13] MEDS: QUEtiapine FUMARATE 100 MG TABLET PO SCH ×3 (08:14→16:36)
[2017-06-13 08:15] VITALS: BP 114/68
[2017-06-13] MEDS: OMEPRAZOLE 20 MG CAPSULE PO SCH (08:15)
[2017-06-13] MEDS: DOCUSATE SODIUM 100 MG CAPSULE PO SCH (08:15)
[2017-06-13] MEDS: LITHIUM CARBONATE 300 MG CAPSULE PO SCH ×3 (08:15→16:36)
[2017-06-13] MEDS: FLUoxetine HCL 20 MG CAPSULE PO SCH (08:15)
[2017-06-13] MEDS: ACETAMINOPHEN 325 MG TABLET PO PRN ×2 (08:15→19:48)
[2017-06-13] MEDS: ESTRADIOL 1 MG TABLET PO SCH (12:41)
[2017-06-13 15:10] VITALS: BP 127/77
[2017-06-13 16:08] VITALS: BP 133/64
[2017-06-13] MEDS: LORazepam 2 MG TABLET PO PRN (20:12)
[2017-06-14 00:32] VITALS: BP 126/79
[2017-06-14] MEDS: LEVOTHYROXINE SODIUM 25 MCG TABLET PO SCH (06:08)
[2017-06-14] MEDS: ALBUTEROL SULFATE HFA 90 MCG/PUFF 8 GM INHALER IH PRN ×2 (06:09→16:43)
[2017-06-14] MEDS: IBUPROFEN 600 MG TABLET PO PRN ×2 (06:09→16:42)
[2017-06-14] MEDS: QUEtiapine FUMARATE 100 MG TABLET PO SCH ×3 (08:29→16:35)
[2017-06-14] MEDS: ESTRADIOL 1 MG TABLET PO SCH (08:29)
[2017-06-14] MEDS: LITHIUM CARBONATE 300 MG CAPSULE PO SCH ×3 (08:29→16:35)
[2017-06-14] MEDS: FLUoxetine HCL 20 MG CAPSULE PO SCH (08:29)
[2017-06-14] MEDS: CHOLECALCIFEROL (VIT D3) 1,000 UNITS TABLET PO SCH (08:29)
[2017-06-14] MEDS: DOCUSATE SODIUM 100 MG CAPSULE PO SCH (08:30)
[2017-06-14] MEDS: MULTIVITAMINS WITH MINERALS, THERAPEUTIC TABLET PO SCH (08:30)
[2017-06-14] MEDS: OMEPRAZOLE 20 MG CAPSULE PO SCH (08:36)
[2017-06-14 08:41] VITALS: BP 122/75
[2017-06-14 16:20] VITALS: BP 120/81
[2017-06-15 06:22] VITALS: BP 126/73
[2017-06-15] MEDS: ALBUTEROL SULFATE HFA 90 MCG/PUFF 8 GM INHALER IH PRN (06:33)
[2017-06-15] MEDS: IBUPROFEN 600 MG TABLET PO PRN (06:33)
[2017-06-15] MEDS: LEVOTHYROXINE SODIUM 25 MCG TABLET PO SCH (06:33)
[2017-06-15] MEDS: FLUoxetine HCL 20 MG CAPSULE PO SCH (08:19)
[2017-06-15] MEDS: QUEtiapine FUMARATE 100 MG TABLET PO SCH ×2 (08:19→12:12)
[2017-06-15] MEDS: DOCUSATE SODIUM 100 MG CAPSULE PO SCH (08:19)
[2017-06-15] MEDS: OMEPRAZOLE 20 MG CAPSULE PO SCH (08:19)
[2017-06-15] MEDS: CHOLECALCIFEROL (VIT D3) 1,000 UNITS TABLET PO SCH (08:19)
[2017-06-15] MEDS: ESTRADIOL 1 MG TABLET PO SCH (08:19)
[2017-06-15] MEDS: MULTIVITAMINS WITH MINERALS, THERAPEUTIC TABLET PO SCH (08:19)
[2017-06-15] MEDS: LITHIUM CARBONATE 300 MG CAPSULE PO SCH ×2 (08:19→12:12)
[2017-06-15 08:29] VITALS: BP 113/68
[2017-06-15] MEDS ORDERED: LEVO25TA9 PO (08:30)
[2017-06-15] MEDS ORDERED: ALBU8HFA4 IH (08:30)
[2017-06-15] MEDS ORDERED: DSS100 PO (08:30)
[2017-06-15] MEDS ORDERED: OMEP20 PO (08:30)
[2017-06-15] MEDS: IPRATROPIUM BROMIDE 0.5 MG/2.5 ML NEB SOLUTION NEB PRN (13:08)
[2017-06-15] MEDS: ALBUTEROL SULFATE 2.5 MG/0.5 ML NEB SOLUTION NEB PRN (13:08)
== END 2017-06-15 13:40 | disposition home or self-care (01) | DRG 885 ==
LOC: B2X 19:46 → EDSTATUS 20:26
PROVIDERS: ADMIT Psychiatry & Neurology Psychiatry; ATTEND Psychiatry & Neurology Psychiatry
DX: F31.9 Bipolar disorder, unspecified (principal); E46 Unspecified protein-calorie malnutrition; J44.9 Chronic obstructive pulmonary disease, unspecified; F41.9 Anxiety disorder, unspecified; G43.909 Migraine, unspecified, not intractable, without status migrainosus; Z68.20 Body mass index [BMI] 20.0-20.9, adult; E55.9 Vitamin D deficiency, unspecified; E87.6 Hypokalemia; F17.200 Nicotine dependence, unspecified, uncomplicated; F25.9 Schizoaffective disorder, unspecified; G47.00 Insomnia, unspecified; K21.9 Gastro-esophageal reflux disease without esophagitis; Z90.710 Acquired absence of both cervix and uterus; Z71.6 Tobacco abuse counseling
CPT/HCPCS: 83036; 84132; 84439; 84443; 99285; J3535

== ENCOUNTER 2017-08-22 19:01 | Inpatient (IN) | payer MEDICARE, MEDICAID ==
[~2017-08-22] VITALS: Ht 152.4 cm; Wt 47.5 kg
[~2017-08-22 19:01] MED LIST changes: +ALBU8HFA4 IH; -AMLO-512 PO; -BACL10TA PO; +DSS100 PO; +LEVO25TA9 PO; -LEVO75 PO; +OMEP20 PO; -SIMV-259 PO
[2017-08-22] MEDS ORDERED: ZOLPIDEM TARTRATE 10 MG TABLET PO PRN (19:45)
[2017-08-22] MEDS ORDERED: LORazepam 2 MG TABLET PO PRN (19:45)
[2017-08-22] MEDS ORDERED: HALOPERIDOL 5 MG TABLET PO PRN (19:45)
[2017-08-22 20:15] VITALS: BP 130/67
[2017-08-22] MEDS: ALBUTEROL SULFATE HFA 90 MCG/PUFF 8 GM INHALER IH PRN (22:21)
[2017-08-23 02:30] VITALS: BP 112/65
[2017-08-23] MEDS: LEVOTHYROXINE SODIUM 25 MCG TABLET PO SCH (06:53)
[2017-08-23 08:34] VITALS: BP 123/71
[2017-08-23] MEDS: CHOLECALCIFEROL (VIT D3) 1,000 UNITS TABLET PO SCH (08:44)
[2017-08-23] MEDS: OMEPRAZOLE 20 MG CAPSULE PO SCH (08:44)
[2017-08-23] MEDS: ESTRADIOL 1 MG TABLET PO SCH (08:46)
[2017-08-23] MEDS: NICOTINE 21 MG/24 HOUR PATCH TD SCH (08:51)
[2017-08-23] MEDS: ALBUTEROL SULFATE HFA 90 MCG/PUFF 8 GM INHALER IH PRN (08:52)
[2017-08-23 08:53] LABS: BASOPHILS % (AUTO) 1.5 % (0.0-2.0); EOSINOPHILS % (AUTO) 3.4 % (1.0-6.0); HEMATOCRIT 37.7 % (36-46); LYMPHOCYTES # (AUTO) 2.1 K/uL (1.0-4.8); MEAN CORPUSCULAR HGB CONC 34.4 G/dL (31.0-37.0); MEAN CORPUSCULAR VOLUME 87 fL (80-100); MONOCYTES # (AUTO) 0.6 K/uL (0.1-1.0); MONOCYTES % (AUTO) 6.9 % (2.0-9.0); NEUTROPHILS # (AUTO) 5.5 K/uL (1.8-7.7); NEUTROPHILS % (AUTO) 64.2 % (40.0-70.0); PLATELET COUNT (AUTO) 370 K/uL (150-450); RED BLOOD CELL COUNT(AUTO) 4.32 MIL/uL (4.00-5.20); RED CELL DISTRIBUTION WIDTH 14.7 % (11.5-14.5)
[2017-08-23] MEDS ORDERED: DOCUSATE SODIUM 100 MG CAPSULE PO SCH (09:00)
[2017-08-23 09:27] LABS: ALANINE AMINOTRANSFERASE 12 U/L (12-78); ALBUMIN 2.9 g/dL (3.4-5.0); ALKALINE PHOSPHATASE 106 U/L (46-116); ANION GAP 9 mmol/L (8-16); ASPARTATE AMINOTRANSFERASE 11 U/L (15-37); BILIRUBIN,TOTAL 0.2 mg/dL (0.1-1.0); CALCIUM, TOTAL 7.6 mg/dL (8.8-10.5); CARBON DIOXIDE 27 mmol/L (22-29); CHLORIDE 106 mmol/L (98-107); CHOL/HDL RATIO 2.7 (3.9-5.7); CHOLESTEROL 181 mg/dL (131-200); CREATININE 0.26 mg/dL (0.60-1.30); GLOMERULAR FILTR. RATE CALC > 60 mL/min (>60); GLUCOSE,RANDOM 105 mg/dL (70-110); HDL CHOLESTEROL 68 mg/dL (40-60); LDL CHOL (CALC.) 93 mg/dL (0-130); SODIUM SERUM 142 mmol/L (136-145); THYROID STIMULATING HORMONE 1.62 uIU/mL (0.36-3.74); TOTAL PROTEIN, SERUM 5.9 g/dL (6.4-8.2); TRIGLYCERIDES 100 mg/dL (15-150); UREA NITROGEN, BLOOD 7 mg/dL (7-18)
[2017-08-23 09:48] LABS: HEMOGLOBIN A1C 6.1 % (4.5-6.2)
[2017-08-23] MEDS: FLUoxetine HCL 20 MG CAPSULE PO SCH (11:47)
[2017-08-23] MEDS ORDERED: MAGNESIUM HYDROXIDE SUSPENSION 30 ML UDCUP PO PRN (12:00)
[2017-08-23] MEDS ORDERED: CloNIDine HCL 0.1 MG TABLET PO PRN (12:00)
[2017-08-23] MEDS ORDERED: POTASSIUM CHLORIDE 20 MEQ ER TABLET PO ONE (12:00)
[2017-08-23] MEDS ORDERED: BENZOCAINE/MENTHOL LOZENGE MM PRN (12:00)
[2017-08-23] MEDS ORDERED: LOPERAMIDE HCL 2 MG CAPSULE PO PRN (12:00)
[2017-08-23] MEDS ORDERED: BACITRACIN 28.4 GM OINTMENT TP PRN (12:00)
[2017-08-23] MEDS ORDERED: ONDANSETRON HCL 4 MG TABLET PO PRN (12:00)
[2017-08-23] MEDS ORDERED: PETROLATUM,WHITE 71 GM JELLY TP PRN (12:00)
[2017-08-23] MEDS ORDERED: MAG HYDROX/AL HYDROX/SIMETH ES 30 ML SUSPENSION UDCUP PO PRN (12:00)
[2017-08-23] MEDS ORDERED: ACETAMINOPHEN 325 MG TABLET PO PRN (12:00)
[2017-08-23] MEDS: QUEtiapine FUMARATE 100 MG TABLET PO SCH ×2 (12:12→17:35)
[2017-08-23] MEDS: LITHIUM CARBONATE 300 MG CAPSULE PO SCH ×2 (12:12→17:35)
[2017-08-23] MEDS: IBUPROFEN 600 MG TABLET PO PRN (12:16)
[2017-08-23 12:59] LABS: FREE T4 (FREE THYROXINE) 0.88 ng/dL (0.76-1.46)
[2017-08-23 16:25] VITALS: BP 120/82
[2017-08-23] MEDS ORDERED: IPRATROPIUM BROMIDE 0.5 MG/2.5 ML NEB SOLUTION NEB PRN (17:30)
[2017-08-23] MEDS ORDERED: ALBUTEROL SULFATE 2.5 MG/0.5 ML NEB SOLUTION NEB PRN (17:30)
[2017-08-23] MEDS ORDERED: POTASSIUM CHLORIDE 10% 40 MEQ/30 ML LIQUID UDCUP PO ONE (21:00)
[2017-08-23] MEDS: GABAPENTIN 300 MG CAPSULE PO SCH (21:00)
[2017-08-24 06:10] VITALS: BP 113/78
[2017-08-24] MEDS: IBUPROFEN 600 MG TABLET PO PRN ×2 (06:10→16:18)
[2017-08-24] MEDS: LEVOTHYROXINE SODIUM 25 MCG TABLET PO SCH (06:10)
[2017-08-24] MEDS: ALBUTEROL SULFATE HFA 90 MCG/PUFF 8 GM INHALER IH PRN ×2 (08:28→16:19)
[2017-08-24] MEDS: QUEtiapine FUMARATE 100 MG TABLET PO SCH ×3 (08:28→16:29)
[2017-08-24] MEDS: OMEPRAZOLE 20 MG CAPSULE PO SCH (08:29)
[2017-08-24] MEDS: DOCUSATE SODIUM 100 MG CAPSULE PO SCH (08:29)
[2017-08-24] MEDS: ESTRADIOL 1 MG TABLET PO SCH (08:29)
[2017-08-24] MEDS: CHOLECALCIFEROL (VIT D3) 1,000 UNITS TABLET PO SCH (08:29)
[2017-08-24] MEDS: FLUoxetine HCL 20 MG CAPSULE PO SCH (08:29)
[2017-08-24] MEDS: LITHIUM CARBONATE 300 MG CAPSULE PO SCH ×3 (08:29→16:29)
[2017-08-24] MEDS: NICOTINE 21 MG/24 HOUR PATCH TD SCH (08:30)
[2017-08-24] MEDS ORDERED: OMEPRAZOLE 20 MG CAPSULE PO SCH (09:00)
[2017-08-24 10:28] LABS: CHOL/HDL RATIO 2.8 (3.9-5.7); POTASSIUM 4.5 mmol/L (3.5-5.1); THYROID STIMULATING HORMONE 0.59 uIU/mL (0.36-3.74)
[2017-08-24 16:18] VITALS: BP 105/68
[2017-08-24] MEDS: GABAPENTIN 300 MG CAPSULE PO SCH ×2 (20:55→21:00)
[2017-08-25 06:33] VITALS: BP 100/65
[2017-08-25] MEDS: IBUPROFEN 600 MG TABLET PO PRN ×2 (08:16→15:53)
[2017-08-25] MEDS: DOCUSATE SODIUM 100 MG CAPSULE PO SCH ×2 (09:00→09:46)
[2017-08-25] MEDS: CHOLECALCIFEROL (VIT D3) 1,000 UNITS TABLET PO SCH ×2 (09:00→09:46)
[2017-08-25] MEDS: NICOTINE 21 MG/24 HOUR PATCH TD SCH (09:00)
[2017-08-25] MEDS: ESTRADIOL 1 MG TABLET PO SCH ×2 (09:00→09:46)
[2017-08-25] MEDS: QUEtiapine FUMARATE 100 MG TABLET PO SCH ×4 (09:00→16:54)
[2017-08-25] MEDS: OMEPRAZOLE 20 MG CAPSULE PO SCH ×2 (09:00→09:47)
[2017-08-25] MEDS: FLUoxetine HCL 20 MG CAPSULE PO SCH ×2 (09:00→09:47)
[2017-08-25] MEDS: LITHIUM CARBONATE 300 MG CAPSULE PO SCH ×4 (09:00→16:54)
[2017-08-25 09:44] VITALS: BP 107/64
[2017-08-25] MEDS: ALBUTEROL SULFATE HFA 90 MCG/PUFF 8 GM INHALER IH PRN (09:47)
[2017-08-25] MEDS ORDERED: NICOTINE 21 MG/24 HOUR PATCH TD PRN (12:30)
[2017-08-25 16:25] VITALS: BP 101/69
[2017-08-25] MEDS: GABAPENTIN 300 MG CAPSULE PO SCH (20:40)
[2017-08-26] MEDS: IBUPROFEN 600 MG TABLET PO PRN ×2 (06:55→16:19)
[2017-08-26 08:21] VITALS: BP 126/84
[2017-08-26] MEDS: LITHIUM CARBONATE 300 MG CAPSULE PO SCH ×3 (08:40→17:29)
[2017-08-26] MEDS: QUEtiapine FUMARATE 100 MG TABLET PO SCH ×3 (08:40→17:29)
[2017-08-26] MEDS: FLUoxetine HCL 20 MG CAPSULE PO SCH (08:40)
[2017-08-26] MEDS: ESTRADIOL 1 MG TABLET PO SCH (08:40)
[2017-08-26] MEDS: OMEPRAZOLE 20 MG CAPSULE PO SCH (08:40)
[2017-08-26] MEDS: CHOLECALCIFEROL (VIT D3) 1,000 UNITS TABLET PO SCH (08:40)
[2017-08-26] MEDS: DOCUSATE SODIUM 100 MG CAPSULE PO SCH (08:40)
[2017-08-26 16:15] VITALS: BP 118/72
[2017-08-26] MEDS: GABAPENTIN 300 MG CAPSULE PO SCH (20:49)
[2017-08-27 04:56] VITALS: BP 120/82
[2017-08-27] MEDS: IBUPROFEN 600 MG TABLET PO PRN (05:16)
[2017-08-27 08:26] VITALS: BP 116/55
[2017-08-27] MEDS: FLUoxetine HCL 20 MG CAPSULE PO SCH (09:18)
[2017-08-27] MEDS: LITHIUM CARBONATE 300 MG CAPSULE PO SCH (09:18)
[2017-08-27] MEDS: OMEPRAZOLE 20 MG CAPSULE PO SCH (09:18)
[2017-08-27] MEDS: CHOLECALCIFEROL (VIT D3) 1,000 UNITS TABLET PO SCH (09:18)
[2017-08-27] MEDS: QUEtiapine FUMARATE 100 MG TABLET PO SCH (09:18)
[2017-08-27] MEDS: DOCUSATE SODIUM 100 MG CAPSULE PO SCH (09:18)
[2017-08-27] MEDS: ESTRADIOL 1 MG TABLET PO SCH (09:19)
== END 2017-08-27 13:00 | disposition home or self-care (01) | DRG 885 ==
LOC: B3A 19:36
PROVIDERS: ADMIT Psychiatry & Neurology Psychiatry; ATTEND Psychiatry & Neurology Psychiatry
DX: F25.9 Schizoaffective disorder, unspecified (principal); E46 Unspecified protein-calorie malnutrition; R45.851 Suicidal ideations; J44.9 Chronic obstructive pulmonary disease, unspecified; E03.9 Hypothyroidism, unspecified; K21.9 Gastro-esophageal reflux disease without esophagitis; N95.1 Menopausal and female climacteric states; F41.9 Anxiety disorder, unspecified; G47.00 Insomnia, unspecified; E55.9 Vitamin D deficiency, unspecified; F17.200 Nicotine dependence, unspecified, uncomplicated; E87.6 Hypokalemia; Z90.710 Acquired absence of both cervix and uterus; Z68.20 Body mass index [BMI] 20.0-20.9, adult
CPT/HCPCS: 82306; 83036; 84132; 84439; 84443; J3535

== ENCOUNTER 2018-01-23 06:41 | Inpatient (IN) | payer MEDICARE, MEDICAID ==
[~2018-01-23] VITALS: Ht 154.9 cm; Wt 42.0 kg
[~2018-01-23 06:41] MED LIST changes: -ALBU8HFA4 IH; -DSS100 PO; -LEVO25TA9 PO; -OMEP20 PO
[2018-01-23 08:31] VITALS: BP 114/79
[2018-01-23] MEDS ORDERED: ZOLPIDEM TARTRATE 10 MG TABLET PO PRN (09:00)
[2018-01-23] MEDS ORDERED: HALOPERIDOL 5 MG TABLET PO PRN (09:00)
[2018-01-23] MEDS: FLUoxetine HCL 20 MG CAPSULE PO SCH (09:43)
[2018-01-23] MEDS: QUEtiapine FUMARATE 100 MG TABLET PO SCH ×3 (09:43→16:38)
[2018-01-23] MEDS: LITHIUM CARBONATE 300 MG CAPSULE PO SCH ×3 (09:43→16:38)
[2018-01-23] MEDS ORDERED: ALBUTEROL SULFATE HFA 90 MCG/PUFF 8 GM INHALER IH PRN (10:15)
[2018-01-23] MEDS ORDERED: BENZOCAINE/MENTHOL LOZENGE MM PRN ×2 (10:15→11:30)
[2018-01-23] MEDS ORDERED: IBUPROFEN 600 MG TABLET PO PRN (10:15)
[2018-01-23] MEDS ORDERED: ONDANSETRON HCL 4 MG TABLET PO PRN ×2 (10:15→11:30)
[2018-01-23] MEDS ORDERED: PETROLATUM,WHITE 71 GM JELLY TP PRN ×2 (10:15→11:30)
[2018-01-23] MEDS ORDERED: CloNIDine HCL 0.1 MG TABLET PO PRN ×2 (10:15→11:30)
[2018-01-23] MEDS ORDERED: MAGNESIUM HYDROXIDE SUSPENSION 30 ML UDCUP PO PRN ×2 (10:15→11:30)
[2018-01-23] MEDS ORDERED: ACETAMINOPHEN 325 MG TABLET PO PRN (10:15)
[2018-01-23] MEDS ORDERED: MAG HYDROX/AL HYDROX/SIMETH ES 30 ML SUSPENSION UDCUP PO PRN ×2 (10:15→11:30)
[2018-01-23] MEDS ORDERED: LOPERAMIDE HCL 2 MG CAPSULE PO PRN ×2 (10:15→11:30)
[2018-01-23] MEDS ORDERED: BACITRACIN 28.4 GM OINTMENT TP PRN ×2 (10:15→11:30)
[2018-01-23] MEDS ORDERED: DENTURE ADHESIVE 68 GM CREAM DT PRN (11:30)
[2018-01-23 16:05] VITALS: BP 111/66
[2018-01-23] MEDS: ALBUTEROL SULFATE HFA 90 MCG/PUFF 8 GM INHALER IH PRN (16:29)
[2018-01-24 06:11] VITALS: BP 108/61
[2018-01-24 08:07] VITALS: BP 106/67
[2018-01-24 08:25] LABS: BASOPHILS % (AUTO) 0.5 % (0.0-2.0); EOSINOPHILS % (AUTO) 0.4 % (1.0-6.0); HEMATOCRIT 40.4 % (36-46); HEMOGLOBIN 13.5 g/dL (12.0-16.0); LYMPHOCYTES # (AUTO) 2.1 K/uL (1.0-4.8); LYMPHOCYTES % (AUTO) 12.8 % (22.0-44.0); MEAN CORPUSCULAR HEMOGLOBIN 29.6 pg (26.0-34.0); MEAN CORPUSCULAR HGB CONC 33.3 G/dL (31.0-37.0); MEAN CORPUSCULAR VOLUME 89 fL (80-100); MONOCYTES # (AUTO) 0.8 K/uL (0.1-1.0); MONOCYTES % (AUTO) 5.2 % (2.0-9.0); NEUTROPHILS # (AUTO) 13.2 K/uL (1.8-7.7); NEUTROPHILS % (AUTO) 81.1 % (40.0-70.0); PLATELET COUNT (AUTO) 301 K/uL (150-450); RED BLOOD CELL COUNT(AUTO) 4.54 MIL/uL (4.00-5.20); RED CELL DISTRIBUTION WIDTH 14.1 % (11.5-14.5)
[2018-01-24] MEDS: DOCUSATE SODIUM 100 MG CAPSULE PO SCH (08:28)
[2018-01-24] MEDS: LITHIUM CARBONATE 300 MG CAPSULE PO SCH ×3 (08:28→16:34)
[2018-01-24] MEDS: QUEtiapine FUMARATE 100 MG TABLET PO SCH ×3 (08:28→16:34)
[2018-01-24] MEDS: FLUoxetine HCL 20 MG CAPSULE PO SCH (08:28)
[2018-01-24] MEDS: MULTIVITAMINS WITH MINERALS, THERAPEUTIC TABLET PO SCH (08:28)
[2018-01-24] MEDS: OMEPRAZOLE 20 MG CAPSULE PO SCH (08:28)
[2018-01-24] MEDS: CHOLECALCIFEROL (VIT D3) 1,000 UNITS TABLET PO SCH (08:28)
[2018-01-24] MEDS: NICOTINE 21 MG/24 HOUR PATCH TD SCH (08:29)
[2018-01-24] MEDS: ALBUTEROL SULFATE HFA 90 MCG/PUFF 8 GM INHALER IH PRN (08:40)
[2018-01-24 08:50] LABS: HEMOGLOBIN A1C 5.4 % (4.5-6.2)
[2018-01-24 09:13] LABS: ALANINE AMINOTRANSFERASE 13 U/L (12-78); ALKALINE PHOSPHATASE 109 U/L (46-116); ANION GAP 7 mmol/L (8-16); ASPARTATE AMINOTRANSFERASE 8 U/L (15-37); BILIRUBIN,TOTAL 0.5 mg/dL (0.1-1.0); CALCIUM, TOTAL 8.7 mg/dL (8.8-10.5); CARBON DIOXIDE 30 mmol/L (22-29); CHLORIDE 104 mmol/L (98-107); CHOL/HDL RATIO 3.3 (3.9-5.7); CHOLESTEROL 196 mg/dL (131-200); CREATININE 0.64 mg/dL (0.60-1.30); FREE T4 (FREE THYROXINE) 0.71 ng/dL (0.76-1.46); GLOMERULAR FILTR. RATE CALC > 60 mL/min (>60); GLUCOSE,RANDOM 90 mg/dL (70-110); HDL CHOLESTEROL 60 mg/dL (40-60); LDL CHOL (CALC.) 115 mg/dL (0-130); POTASSIUM 3.9 mmol/L (3.5-5.1); SODIUM SERUM 141 mmol/L (136-145); TOTAL PROTEIN, SERUM 5.9 g/dL (6.4-8.2); TRIGLYCERIDES 107 mg/dL (15-150); UREA NITROGEN, BLOOD 13 mg/dL (7-18)
[2018-01-24 13:09] VITALS: BP 110/67
[2018-01-24] MEDS: IBUPROFEN 600 MG TABLET PO PRN (13:09)
[2018-01-24 16:17] VITALS: BP 107/68
[2018-01-25 01:26] VITALS: BP 104/63
[2018-01-25 05:47] VITALS: BP 122/76
[2018-01-25] MEDS: ALBUTEROL SULFATE HFA 90 MCG/PUFF 8 GM INHALER IH PRN ×2 (05:53→14:40)
[2018-01-25] MEDS: IBUPROFEN 600 MG TABLET PO PRN (05:53)
[2018-01-25 08:10] VITALS: BP 109/68
[2018-01-25] MEDS: LITHIUM CARBONATE 300 MG CAPSULE PO SCH ×3 (08:14→16:51)
[2018-01-25] MEDS: MULTIVITAMINS WITH MINERALS, THERAPEUTIC TABLET PO SCH (08:14)
[2018-01-25] MEDS: QUEtiapine FUMARATE 100 MG TABLET PO SCH ×3 (08:14→16:52)
[2018-01-25] MEDS: DOCUSATE SODIUM 100 MG CAPSULE PO SCH (08:14)
[2018-01-25] MEDS: CHOLECALCIFEROL (VIT D3) 1,000 UNITS TABLET PO SCH (08:14)
[2018-01-25] MEDS: FLUoxetine HCL 20 MG CAPSULE PO SCH (08:14)
[2018-01-25] MEDS: OMEPRAZOLE 20 MG CAPSULE PO SCH (08:14)
[2018-01-25] MEDS: NICOTINE 21 MG/24 HOUR PATCH TD SCH (08:19)
[2018-01-25 11:01] VITALS: BP 112/72
[2018-01-25] MEDS: ACETAMINOPHEN 325 MG TABLET PO PRN (11:01)
[2018-01-25 17:26] VITALS: BP 132/74
[2018-01-25] MEDS: ALBUTEROL SULFATE 2.5 MG/0.5 ML NEB SOLUTION NEB SCH (20:24)
[2018-01-25] MEDS: IPRATROPIUM BROMIDE 0.5 MG/2.5 ML NEB SOLUTION NEB SCH (20:24)
[2018-01-26 01:17] VITALS: BP 125/76
[2018-01-26 08:11] VITALS: BP 111/71
[2018-01-26] MEDS: OMEPRAZOLE 20 MG CAPSULE PO SCH (08:25)
[2018-01-26] MEDS: QUEtiapine FUMARATE 100 MG TABLET PO SCH ×3 (08:25→16:03)
[2018-01-26] MEDS: CHOLECALCIFEROL (VIT D3) 1,000 UNITS TABLET PO SCH (08:25)
[2018-01-26] MEDS: DOCUSATE SODIUM 100 MG CAPSULE PO SCH (08:25)
[2018-01-26] MEDS: FLUoxetine HCL 20 MG CAPSULE PO SCH (08:25)
[2018-01-26] MEDS: LITHIUM CARBONATE 300 MG CAPSULE PO SCH ×3 (08:25→16:03)
[2018-01-26] MEDS: MULTIVITAMINS WITH MINERALS, THERAPEUTIC TABLET PO SCH (08:25)
[2018-01-26] MEDS: IBUPROFEN 600 MG TABLET PO PRN (08:26)
[2018-01-26] MEDS: NICOTINE 21 MG/24 HOUR PATCH TD SCH (08:42)
[2018-01-26] MEDS: IPRATROPIUM BROMIDE 0.5 MG/2.5 ML NEB SOLUTION NEB SCH ×2 (08:44→16:28)
[2018-01-26] MEDS: ALBUTEROL SULFATE 2.5 MG/0.5 ML NEB SOLUTION NEB SCH ×2 (08:44→16:28)
[2018-01-26 16:08] VITALS: BP 108/76
[2018-01-27 01:18] VITALS: BP 120/81
[2018-01-27] MEDS: IBUPROFEN 600 MG TABLET PO PRN ×2 (01:20→13:01)
[2018-01-27] MEDS: ACETAMINOPHEN 325 MG TABLET PO PRN (06:09)
[2018-01-27] MEDS: QUEtiapine FUMARATE 100 MG TABLET PO SCH ×3 (08:15→16:51)
[2018-01-27] MEDS: FLUoxetine HCL 20 MG CAPSULE PO SCH (08:16)
[2018-01-27] MEDS: LITHIUM CARBONATE 300 MG CAPSULE PO SCH ×3 (08:16→16:51)
[2018-01-27] MEDS: DOCUSATE SODIUM 100 MG CAPSULE PO SCH (08:16)
[2018-01-27] MEDS: MULTIVITAMINS WITH MINERALS, THERAPEUTIC TABLET PO SCH (08:16)
[2018-01-27] MEDS: OMEPRAZOLE 20 MG CAPSULE PO SCH (08:16)
[2018-01-27] MEDS: CHOLECALCIFEROL (VIT D3) 1,000 UNITS TABLET PO SCH (08:16)
[2018-01-27] MEDS: ALBUTEROL SULFATE 2.5 MG/0.5 ML NEB SOLUTION NEB SCH ×2 (08:18→17:21)
[2018-01-27] MEDS: IPRATROPIUM BROMIDE 0.5 MG/2.5 ML NEB SOLUTION NEB SCH ×2 (08:18→17:21)
[2018-01-27] MEDS: NICOTINE 21 MG/24 HOUR PATCH TD SCH (08:21)
[2018-01-27 08:30] VITALS: BP 106/66
[2018-01-27 13:01] VITALS: BP 112/66
[2018-01-27 16:05] VITALS: BP 122/77
[2018-01-28 04:52] VITALS: BP 112/65
[2018-01-28] MEDS: IBUPROFEN 600 MG TABLET PO PRN ×2 (04:56→16:47)
[2018-01-28 08:31] VITALS: BP 129/68
[2018-01-28] MEDS: NICOTINE 21 MG/24 HOUR PATCH TD SCH (09:00)
[2018-01-28] MEDS: FLUoxetine HCL 20 MG CAPSULE PO SCH (09:52)
[2018-01-28] MEDS: LITHIUM CARBONATE 300 MG CAPSULE PO SCH ×3 (09:52→16:47)
[2018-01-28] MEDS: ALBUTEROL SULFATE 2.5 MG/0.5 ML NEB SOLUTION NEB SCH ×2 (09:53→16:28)
[2018-01-28] MEDS: IPRATROPIUM BROMIDE 0.5 MG/2.5 ML NEB SOLUTION NEB SCH ×2 (09:53→16:28)
[2018-01-28] MEDS: QUEtiapine FUMARATE 100 MG TABLET PO SCH ×3 (09:53→16:47)
[2018-01-28] MEDS: DOCUSATE SODIUM 100 MG CAPSULE PO SCH (09:53)
[2018-01-28] MEDS: CHOLECALCIFEROL (VIT D3) 1,000 UNITS TABLET PO SCH (09:53)
[2018-01-28] MEDS: OMEPRAZOLE 20 MG CAPSULE PO SCH (09:53)
[2018-01-28] MEDS: MULTIVITAMINS WITH MINERALS, THERAPEUTIC TABLET PO SCH (09:58)
[2018-01-28 16:07] VITALS: BP 119/65
[2018-01-29] VITALS (7 sets, daily range): BP systolic 104–121; BP diastolic 66–81
[2018-01-29] MEDS: IBUPROFEN 600 MG TABLET PO PRN (02:13)
[2018-01-29] MEDS: ACETAMINOPHEN 325 MG TABLET PO PRN (05:54)
[2018-01-29 08:13] LABS: HEMATOCRIT 41.2 % (36-46); HEMOGLOBIN 13.6 g/dL (12.0-16.0); MEAN CORPUSCULAR HEMOGLOBIN 29.9 pg (26.0-34.0); MEAN CORPUSCULAR VOLUME 91 fL (80-100); PLATELET COUNT (AUTO) 293 K/uL (150-450); RED BLOOD CELL COUNT(AUTO) 4.54 MIL/uL (4.00-5.20); RED CELL DISTRIBUTION WIDTH 14.1 % (11.5-14.5)
[2018-01-29] MEDS: OMEPRAZOLE 20 MG CAPSULE PO SCH (08:21)
[2018-01-29] MEDS: QUEtiapine FUMARATE 100 MG TABLET PO SCH ×3 (08:21→16:19)
[2018-01-29] MEDS: MULTIVITAMINS WITH MINERALS, THERAPEUTIC TABLET PO SCH (08:21)
[2018-01-29] MEDS: CHOLECALCIFEROL (VIT D3) 1,000 UNITS TABLET PO SCH (08:21)
[2018-01-29] MEDS: FLUoxetine HCL 20 MG CAPSULE PO SCH (08:21)
[2018-01-29] MEDS: LITHIUM CARBONATE 300 MG CAPSULE PO SCH ×3 (08:21→16:19)
[2018-01-29] MEDS: DOCUSATE SODIUM 100 MG CAPSULE PO SCH (08:21)
[2018-01-29 08:24] LABS: ANION GAP 4 mmol/L (8-16); CALCIUM, TOTAL 8.8 mg/dL (8.8-10.5); CARBON DIOXIDE 31 mmol/L (22-29); CHLORIDE 101 mmol/L (98-107); CREATININE 0.58 mg/dL (0.60-1.30); GLOMERULAR FILTR. RATE CALC > 60 mL/min (>60); GLUCOSE,RANDOM 86 mg/dL (70-110); PHOSPHORUS 4.5 mg/dL (2.5-4.9); POTASSIUM 4.2 mmol/L (3.5-5.1); SODIUM SERUM 136 mmol/L (136-145); UREA NITROGEN, BLOOD 12 mg/dL (7-18)
[2018-01-29] MEDS: IPRATROPIUM BROMIDE 0.5 MG/2.5 ML NEB SOLUTION NEB SCH ×2 (08:28→16:28)
[2018-01-29] MEDS: ALBUTEROL SULFATE 2.5 MG/0.5 ML NEB SOLUTION NEB SCH ×2 (08:28→16:28)
[2018-01-29] MEDS: BUTALBITAL/ACETAMINOPHEN/CAFFEINE 50-325-40 MG TABLET PO PRN ×3 (08:29→18:48)
[2018-01-29] MEDS: NICOTINE 21 MG/24 HOUR PATCH TD SCH (08:29)
[2018-01-29 09:31] LABS: BAND NEUTROPHILS % (MANUAL) 2 % (0-5); BASOPHILS % (MANUAL) 1 % (0-2); EOSINOPHILS % (MANUAL) 1 % (1-6); LYMPHOCYTES % (MANUAL) 25 % (22-44); MONOCYTES % (MANUAL) 3 % (2-9); SEGMENTED NEUTROPHILS % 68 % (40-70)
[2018-01-29] MEDS: LORazepam 1 MG TABLET PO PRN (20:27)
[2018-01-30 00:01] VITALS: BP 111/69
[2018-01-30] MEDS: BUTALBITAL/ACETAMINOPHEN/CAFFEINE 50-325-40 MG TABLET PO PRN ×4 (00:20→14:30)
[2018-01-30 05:23] VITALS: BP 123/76
[2018-01-30] MEDS: CHOLECALCIFEROL (VIT D3) 1,000 UNITS TABLET PO SCH (08:17)
[2018-01-30] MEDS: LITHIUM CARBONATE 300 MG CAPSULE PO SCH ×3 (08:17→16:12)
[2018-01-30] MEDS: MULTIVITAMINS WITH MINERALS, THERAPEUTIC TABLET PO SCH (08:17)
[2018-01-30] MEDS: QUEtiapine FUMARATE 100 MG TABLET PO SCH ×3 (08:17→16:12)
[2018-01-30] MEDS: DOCUSATE SODIUM 100 MG CAPSULE PO SCH (08:17)
[2018-01-30] MEDS: FLUoxetine HCL 20 MG CAPSULE PO SCH (08:17)
[2018-01-30] MEDS: OMEPRAZOLE 20 MG CAPSULE PO SCH (08:17)
[2018-01-30 08:45] VITALS: BP 134/70
[2018-01-30] MEDS: IPRATROPIUM BROMIDE 0.5 MG/2.5 ML NEB SOLUTION NEB SCH ×2 (09:38→16:35)
[2018-01-30] MEDS: ALBUTEROL SULFATE 2.5 MG/0.5 ML NEB SOLUTION NEB SCH ×2 (09:38→16:35)
[2018-01-30 10:16] VITALS: BP 128/72
[2018-01-30 14:30] VITALS: BP 122/70
[2018-01-30 16:32] VITALS: BP 110/78
[2018-01-31 01:15] VITALS: BP 124/89
[2018-01-31 04:40] VITALS: BP 134/72
[2018-01-31] MEDS: BUTALBITAL/ACETAMINOPHEN/CAFFEINE 50-325-40 MG TABLET PO PRN ×4 (04:44→18:53)
[2018-01-31] MEDS: DOCUSATE SODIUM 100 MG CAPSULE PO SCH (08:15)
[2018-01-31] MEDS: CHOLECALCIFEROL (VIT D3) 1,000 UNITS TABLET PO SCH (08:15)
[2018-01-31] MEDS: QUEtiapine FUMARATE 100 MG TABLET PO SCH ×3 (08:15→16:43)
[2018-01-31] MEDS: FLUoxetine HCL 20 MG CAPSULE PO SCH (08:15)
[2018-01-31] MEDS: OMEPRAZOLE 20 MG CAPSULE PO SCH (08:16)
[2018-01-31] MEDS: MULTIVITAMINS WITH MINERALS, THERAPEUTIC TABLET PO SCH (08:16)
[2018-01-31] MEDS: LITHIUM CARBONATE 300 MG CAPSULE PO SCH ×3 (08:16→16:43)
[2018-01-31 08:21] VITALS: BP 120/90
[2018-01-31] MEDS: IPRATROPIUM BROMIDE 0.5 MG/2.5 ML NEB SOLUTION NEB SCH ×2 (08:23→16:44)
[2018-01-31] MEDS: ALBUTEROL SULFATE 2.5 MG/0.5 ML NEB SOLUTION NEB SCH ×2 (08:24→16:44)
[2018-01-31 10:10] VITALS: BP 116/82
[2018-01-31 14:11] VITALS: BP 122/78
[2018-01-31 16:10] VITALS: BP 117/72
[2018-01-31] MEDS: LORazepam 1 MG TABLET PO PRN (16:43)
[2018-02-01 03:22] VITALS: BP 117/73
[2018-02-01] MEDS: BUTALBITAL/ACETAMINOPHEN/CAFFEINE 50-325-40 MG TABLET PO PRN ×4 (03:34→16:43)
[2018-02-01] MEDS: ALBUTEROL SULFATE HFA 90 MCG/PUFF 8 GM INHALER IH PRN (06:55)
[2018-02-01 08:13] VITALS: BP 106/62
[2018-02-01 08:21] VITALS: BP 103/61
[2018-02-01] MEDS: LITHIUM CARBONATE 300 MG CAPSULE PO SCH ×3 (09:25→17:06)
[2018-02-01] MEDS: FLUoxetine HCL 20 MG CAPSULE PO SCH (09:25)
[2018-02-01] MEDS: DOCUSATE SODIUM 100 MG CAPSULE PO SCH (09:25)
[2018-02-01] MEDS: OMEPRAZOLE 20 MG CAPSULE PO SCH (09:25)
[2018-02-01] MEDS: CHOLECALCIFEROL (VIT D3) 1,000 UNITS TABLET PO SCH (09:25)
[2018-02-01] MEDS: ALBUTEROL SULFATE 2.5 MG/0.5 ML NEB SOLUTION NEB SCH ×2 (09:25→16:43)
[2018-02-01] MEDS: IPRATROPIUM BROMIDE 0.5 MG/2.5 ML NEB SOLUTION NEB SCH ×2 (09:25→16:43)
[2018-02-01] MEDS: QUEtiapine FUMARATE 100 MG TABLET PO SCH ×3 (09:25→17:06)
[2018-02-01] MEDS: MULTIVITAMINS WITH MINERALS, THERAPEUTIC TABLET PO SCH (09:25)
[2018-02-01 16:43] VITALS: BP 110/72
[2018-02-01 19:10] VITALS: BP 105/73
[2018-02-02] VITALS (7 sets, daily range): BP systolic 112–128; BP diastolic 66–86
[2018-02-02] MEDS: BUTALBITAL/ACETAMINOPHEN/CAFFEINE 50-325-40 MG TABLET PO PRN ×5 (01:28→18:55)
[2018-02-02] MEDS: FLUoxetine HCL 20 MG CAPSULE PO SCH (09:06)
[2018-02-02] MEDS: LITHIUM CARBONATE 300 MG CAPSULE PO SCH ×3 (09:06→16:45)
[2018-02-02] MEDS: CHOLECALCIFEROL (VIT D3) 1,000 UNITS TABLET PO SCH (09:06)
[2018-02-02] MEDS: QUEtiapine FUMARATE 100 MG TABLET PO SCH ×3 (09:07→16:45)
[2018-02-02] MEDS: OMEPRAZOLE 20 MG CAPSULE PO SCH (09:07)
[2018-02-02] MEDS: MULTIVITAMINS WITH MINERALS, THERAPEUTIC TABLET PO SCH (09:07)
[2018-02-02] MEDS: DOCUSATE SODIUM 100 MG CAPSULE PO SCH (09:07)
[2018-02-02] MEDS: IPRATROPIUM BROMIDE 0.5 MG/2.5 ML NEB SOLUTION NEB SCH ×2 (09:53→18:19)
[2018-02-02] MEDS: ALBUTEROL SULFATE 2.5 MG/0.5 ML NEB SOLUTION NEB SCH ×2 (09:53→18:19)
[2018-02-02] MEDS: ALBUTEROL SULFATE HFA 90 MCG/PUFF 8 GM INHALER IH PRN (17:27)
[2018-02-02] MEDS ORDERED: GuaiFENesin/D-METHORPHAN/PHENYLEPH 5 ML LIQUID ORAL.SYG PO PRN (20:45)
[2018-02-03 00:09] VITALS: BP 110/68
[2018-02-03] MEDS: BUTALBITAL/ACETAMINOPHEN/CAFFEINE 50-325-40 MG TABLET PO PRN ×4 (00:17→12:35)
[2018-02-03 04:10] VITALS: BP 116/68
[2018-02-03 08:30] VITALS: BP 121/63
[2018-02-03 08:31] VITALS: BP 121/63
[2018-02-03] MEDS: ALBUTEROL SULFATE 2.5 MG/0.5 ML NEB SOLUTION NEB SCH (08:35)
[2018-02-03] MEDS: IPRATROPIUM BROMIDE 0.5 MG/2.5 ML NEB SOLUTION NEB SCH (08:35)
[2018-02-03] MEDS: FLUoxetine HCL 20 MG CAPSULE PO SCH (09:25)
[2018-02-03] MEDS: DOCUSATE SODIUM 100 MG CAPSULE PO SCH (09:25)
[2018-02-03] MEDS: MULTIVITAMINS WITH MINERALS, THERAPEUTIC TABLET PO SCH (09:25)
[2018-02-03] MEDS: QUEtiapine FUMARATE 100 MG TABLET PO SCH ×2 (09:25→13:00)
[2018-02-03] MEDS: LITHIUM CARBONATE 300 MG CAPSULE PO SCH ×2 (09:25→13:00)
[2018-02-03] MEDS: CHOLECALCIFEROL (VIT D3) 1,000 UNITS TABLET PO SCH (09:25)
[2018-02-03] MEDS: OMEPRAZOLE 20 MG CAPSULE PO SCH (09:25)
[2018-02-03] MEDS ORDERED: MULT-1203 PO (11:23)
[2018-02-03] MEDS ORDERED: ALBU8HFA IH (11:23)
[2018-02-03 12:35] VITALS: BP 119/80
== END 2018-02-03 16:28 | disposition home or self-care (01) | DRG 885 ==
LOC: B2X 08:55
PROVIDERS: ADMIT Psychiatry & Neurology Psychiatry; ATTEND Psychiatry & Neurology Psychiatry
DX: F25.9 Schizoaffective disorder, unspecified (principal); E46 Unspecified protein-calorie malnutrition; Z68.1 Body mass index [BMI] 19.9 or less, adult; Z23 Encounter for immunization; J44.9 Chronic obstructive pulmonary disease, unspecified; K21.9 Gastro-esophageal reflux disease without esophagitis; E03.9 Hypothyroidism, unspecified; F41.9 Anxiety disorder, unspecified; Z90.710 Acquired absence of both cervix and uterus; G47.00 Insomnia, unspecified; E55.9 Vitamin D deficiency, unspecified; F17.200 Nicotine dependence, unspecified, uncomplicated; F32.9 Major depressive disorder, single episode, unspecified; G89.29 Other chronic pain; N95.1 Menopausal and female climacteric states; Z71.6 Tobacco abuse counseling
CPT/HCPCS: 83036; 83735; 84100; 84436; 84439; 85007; 90686; J3535

== ENCOUNTER 2018-03-19 11:44 | Inpatient (IN) | payer MEDICARE ==
[~2018-03-19] VITALS: Ht 149.9 cm; Wt 44.0 kg
[~2018-03-19 11:44] MED LIST changes: +ALBU8HFA IH; -ESTR-95 PO; +MULT-1203 PO
[2018-03-19] MEDS ORDERED: HALOPERIDOL 5 MG TABLET PO PRN (14:00)
[2018-03-19] MEDS ORDERED: ZOLPIDEM TARTRATE 10 MG TABLET PO PRN (14:00)
[2018-03-19 14:30] VITALS: BP 148/71
[2018-03-19] MEDS ORDERED: QUEtiapine FUMARATE 100 MG TABLET PO SCH (14:54)
[2018-03-19] MEDS: QUEtiapine FUMARATE 100 MG TABLET PO SCH (16:43)
[2018-03-19] MEDS: LITHIUM CARBONATE 300 MG CAPSULE PO SCH (16:43)
[2018-03-20 04:30] VITALS: BP 121/68
[2018-03-20] MEDS: LORazepam 2 MG TABLET PO PRN (04:49)
[2018-03-20] MEDS: LITHIUM CARBONATE 300 MG CAPSULE PO SCH ×3 (06:43→16:48)
[2018-03-20] MEDS: QUEtiapine FUMARATE 100 MG TABLET PO SCH ×3 (08:06→16:47)
[2018-03-20 08:08] VITALS: BP 105/59
[2018-03-20 08:33] LABS: BASOPHILS % (AUTO) 0.2 % (0.0-2.0); EOSINOPHILS % (AUTO) 0.1 % (1.0-6.0); HEMATOCRIT 41.5 % (36-46); HEMOGLOBIN 13.6 g/dL (12.0-16.0); LYMPHOCYTES % (AUTO) 16.5 % (22.0-44.0); MEAN CORPUSCULAR HEMOGLOBIN 28.9 pg (26.0-34.0); MEAN CORPUSCULAR HGB CONC 32.7 G/dL (31.0-37.0); MEAN CORPUSCULAR VOLUME 88 fL (80-100); MONOCYTES % (AUTO) 8.5 % (2.0-9.0); NEUTROPHILS # (AUTO) 8.9 K/uL (1.8-7.7); NEUTROPHILS % (AUTO) 74.7 % (40.0-70.0); PLATELET COUNT (AUTO) 331 K/uL (150-450); RED BLOOD CELL COUNT(AUTO) 4.69 MIL/uL (4.00-5.20); RED CELL DISTRIBUTION WIDTH 14.1 % (11.5-14.5)
[2018-03-20 09:30] LABS: ALBUMIN 3.4 g/dL (3.4-5.0); ALKALINE PHOSPHATASE 101 U/L (46-116); ANION GAP 7 mmol/L (8-16); ASPARTATE AMINOTRANSFERASE 9 U/L (15-37); BILIRUBIN,TOTAL 0.1 mg/dL (0.1-1.0); CALCIUM, TOTAL 8.9 mg/dL (8.8-10.5); CARBON DIOXIDE 30 mmol/L (22-29); CHLORIDE 106 mmol/L (98-107); CHOL/HDL RATIO 2.7 (3.9-5.7); CHOLESTEROL 230 mg/dL (131-200); CREATININE 0.49 mg/dL (0.60-1.30); GLOMERULAR FILTR. RATE CALC > 60 mL/min (>60); GLUCOSE,RANDOM 89 mg/dL (70-110); HDL CHOLESTEROL 86 mg/dL (40-60); LDL CHOL (CALC.) 119 mg/dL (0-130); SODIUM SERUM 143 mmol/L (136-145); THYROID STIMULATING HORMONE 0.45 uIU/mL (0.36-3.74); TOTAL PROTEIN, SERUM 6.5 g/dL (6.4-8.2); TRIGLYCERIDES 126 mg/dL (15-150); UREA NITROGEN, BLOOD 10 mg/dL (7-18)
[2018-03-20 09:43] LABS: ALANINE AMINOTRANSFERASE 15 U/L (12-78)
[2018-03-20] MEDS ORDERED: ALBUTEROL SULFATE HFA 90 MCG/PUFF 8 GM INHALER IH PRN (10:15)
[2018-03-20 16:42] VITALS: BP 122/82
[2018-03-20] MEDS ORDERED: LOPERAMIDE HCL 2 MG CAPSULE PO PRN (20:00)
[2018-03-20] MEDS ORDERED: PETROLATUM,WHITE 71 GM JELLY TP PRN (20:00)
[2018-03-20] MEDS ORDERED: MAGNESIUM HYDROXIDE SUSPENSION 30 ML UDCUP PO PRN (20:00)
[2018-03-20] MEDS ORDERED: BENZOCAINE/MENTHOL LOZENGE MM PRN (20:00)
[2018-03-20] MEDS ORDERED: BACITRACIN 28.4 GM OINTMENT TP PRN (20:00)
[2018-03-20] MEDS ORDERED: ACETAMINOPHEN 325 MG TABLET PO PRN (20:00)
[2018-03-20] MEDS ORDERED: MAG HYDROX/AL HYDROX/SIMETH ES 30 ML SUSPENSION UDCUP PO PRN (20:00)
[2018-03-20] MEDS ORDERED: CloNIDine HCL 0.1 MG TABLET PO PRN (20:00)
[2018-03-20] MEDS ORDERED: ONDANSETRON HCL 4 MG TABLET PO PRN (20:00)
[2018-03-21 05:34] VITALS: BP 120/81
[2018-03-21] MEDS: IBUPROFEN 600 MG TABLET PO PRN ×2 (06:55→16:15)
[2018-03-21] MEDS: LITHIUM CARBONATE 300 MG CAPSULE PO SCH ×3 (06:56→17:12)
[2018-03-21] MEDS: ALBUTEROL SULFATE HFA 90 MCG/PUFF 8 GM INHALER IH PRN (07:14)
[2018-03-21 08:02] VITALS: BP 118/66
[2018-03-21 08:33] LABS: BASOPHILS % (AUTO) 0.9 % (0.0-2.0); EOSINOPHILS % (AUTO) 3.1 % (1.0-6.0); HEMATOCRIT 40.7 % (36-46); HEMOGLOBIN 13.3 g/dL (12.0-16.0); LYMPHOCYTES # (AUTO) 2.4 K/uL (1.0-4.8); LYMPHOCYTES % (AUTO) 27.5 % (22.0-44.0); MEAN CORPUSCULAR HEMOGLOBIN 29.4 pg (26.0-34.0); MEAN CORPUSCULAR HGB CONC 32.7 G/dL (31.0-37.0); MEAN CORPUSCULAR VOLUME 90 fL (80-100); MONOCYTES # (AUTO) 0.6 K/uL (0.1-1.0); MONOCYTES % (AUTO) 6.7 % (2.0-9.0); NEUTROPHILS # (AUTO) 5.4 K/uL (1.8-7.7); NEUTROPHILS % (AUTO) 61.8 % (40.0-70.0); PLATELET COUNT (AUTO) 287 K/uL (150-450); RED BLOOD CELL COUNT(AUTO) 4.53 MIL/uL (4.00-5.20); RED CELL DISTRIBUTION WIDTH 14.2 % (11.5-14.5)
[2018-03-21] MEDS: CHOLECALCIFEROL (VIT D3) 1,000 UNITS TABLET PO SCH (08:48)
[2018-03-21] MEDS: FLUoxetine HCL 20 MG CAPSULE PO SCH (08:49)
[2018-03-21] MEDS: OMEPRAZOLE 20 MG CAPSULE PO SCH (08:49)
[2018-03-21] MEDS: MULTIVITAMINS, THERAPEUTIC TABLET PO SCH (08:49)
[2018-03-21] MEDS: DOCUSATE SODIUM 100 MG CAPSULE PO SCH (08:49)
[2018-03-21] MEDS: QUEtiapine FUMARATE 100 MG TABLET PO SCH ×3 (08:49→17:12)
[2018-03-21 16:15] VITALS: BP 120/75
[2018-03-22 05:06] VITALS: BP 118/70
[2018-03-22] MEDS: LORazepam 2 MG TABLET PO PRN (05:19)
[2018-03-22] MEDS: IBUPROFEN 600 MG TABLET PO PRN ×2 (05:19→12:07)
[2018-03-22] MEDS: LITHIUM CARBONATE 300 MG CAPSULE PO SCH ×3 (07:12→16:10)
[2018-03-22 08:14] VITALS: BP 101/61
[2018-03-22] MEDS: DOCUSATE SODIUM 100 MG CAPSULE PO SCH (08:14)
[2018-03-22] MEDS: QUEtiapine FUMARATE 100 MG TABLET PO SCH ×3 (08:14→16:10)
[2018-03-22] MEDS: CHOLECALCIFEROL (VIT D3) 1,000 UNITS TABLET PO SCH (08:14)
[2018-03-22] MEDS: OMEPRAZOLE 20 MG CAPSULE PO SCH (08:14)
[2018-03-22] MEDS: MULTIVITAMINS, THERAPEUTIC TABLET PO SCH (08:14)
[2018-03-22] MEDS: FLUoxetine HCL 20 MG CAPSULE PO SCH (08:14)
[2018-03-22 12:07] VITALS: BP 112/68
[2018-03-22 16:04] VITALS: BP 120/77
[2018-03-23 05:34] VITALS: BP 154/74
[2018-03-23] MEDS: IBUPROFEN 600 MG TABLET PO PRN ×2 (05:36→16:19)
[2018-03-23] MEDS: ALBUTEROL SULFATE HFA 90 MCG/PUFF 8 GM INHALER IH PRN (05:42)
[2018-03-23] MEDS: LITHIUM CARBONATE 300 MG CAPSULE PO SCH ×3 (06:32→17:07)
[2018-03-23] MEDS: FLUoxetine HCL 20 MG CAPSULE PO SCH (08:42)
[2018-03-23] MEDS: DOCUSATE SODIUM 100 MG CAPSULE PO SCH (08:42)
[2018-03-23] MEDS: QUEtiapine FUMARATE 100 MG TABLET PO SCH ×3 (08:42→17:07)
[2018-03-23] MEDS: OMEPRAZOLE 20 MG CAPSULE PO SCH (08:42)
[2018-03-23] MEDS: CHOLECALCIFEROL (VIT D3) 1,000 UNITS TABLET PO SCH (08:42)
[2018-03-23] MEDS: MULTIVITAMINS, THERAPEUTIC TABLET PO SCH (08:42)
[2018-03-23 08:58] VITALS: BP 116/74
[2018-03-23 16:19] VITALS: BP 122/75
[2018-03-23 16:35] VITALS: BP 122/75
[2018-03-24 04:20] VITALS: BP 110/68
[2018-03-24] MEDS: LORazepam 2 MG TABLET PO PRN (04:28)
[2018-03-24] MEDS: IBUPROFEN 600 MG TABLET PO PRN (04:28)
[2018-03-24] MEDS: LITHIUM CARBONATE 300 MG CAPSULE PO SCH ×3 (07:01→17:07)
[2018-03-24 08:11] VITALS: BP 138/73
[2018-03-24] MEDS: DOCUSATE SODIUM 100 MG CAPSULE PO SCH (08:29)
[2018-03-24] MEDS: FLUoxetine HCL 20 MG CAPSULE PO SCH (08:29)
[2018-03-24] MEDS: OMEPRAZOLE 20 MG CAPSULE PO SCH (08:29)
[2018-03-24] MEDS: CHOLECALCIFEROL (VIT D3) 1,000 UNITS TABLET PO SCH (08:30)
[2018-03-24] MEDS: QUEtiapine FUMARATE 100 MG TABLET PO SCH ×3 (08:30→17:07)
[2018-03-24] MEDS: MULTIVITAMINS, THERAPEUTIC TABLET PO SCH (08:30)
[2018-03-24] MEDS: ALBUTEROL SULFATE 2.5 MG/0.5 ML NEB SOLUTION NEB SCH ×3 (09:20→17:46)
[2018-03-24] MEDS: IPRATROPIUM BROMIDE 0.5 MG/2.5 ML NEB SOLUTION NEB SCH ×3 (09:20→17:46)
[2018-03-24 12:55] VITALS: BP 113/79
[2018-03-24] MEDS: BUTALBITAL/ACETAMINOPHEN/CAFFEINE 50-325-40 MG TABLET PO PRN ×2 (12:55→17:08)
[2018-03-24 16:00] VITALS: BP 119/69
[2018-03-24 17:08] VITALS: BP 116/88
[2018-03-25] MEDS: BUTALBITAL/ACETAMINOPHEN/CAFFEINE 50-325-40 MG TABLET PO PRN ×4 (01:49→19:08)
[2018-03-25 03:12] VITALS: BP 126/83
[2018-03-25] MEDS: IBUPROFEN 600 MG TABLET PO PRN (04:19)
[2018-03-25] MEDS: ALBUTEROL SULFATE HFA 90 MCG/PUFF 8 GM INHALER IH PRN (04:25)
[2018-03-25] MEDS: LITHIUM CARBONATE 300 MG CAPSULE PO SCH ×3 (06:41→17:00)
[2018-03-25] MEDS: FLUoxetine HCL 20 MG CAPSULE PO SCH (08:09)
[2018-03-25] MEDS: QUEtiapine FUMARATE 100 MG TABLET PO SCH ×3 (08:09→17:00)
[2018-03-25] MEDS: MULTIVITAMINS, THERAPEUTIC TABLET PO SCH (08:09)
[2018-03-25] MEDS: OMEPRAZOLE 20 MG CAPSULE PO SCH (08:09)
[2018-03-25] MEDS: DOCUSATE SODIUM 100 MG CAPSULE PO SCH (08:09)
[2018-03-25] MEDS: CHOLECALCIFEROL (VIT D3) 1,000 UNITS TABLET PO SCH (08:09)
[2018-03-25] MEDS: ALBUTEROL SULFATE 2.5 MG/0.5 ML NEB SOLUTION NEB SCH ×2 (09:14→18:05)
[2018-03-25] MEDS: IPRATROPIUM BROMIDE 0.5 MG/2.5 ML NEB SOLUTION NEB SCH ×2 (09:14→18:05)
[2018-03-25 10:46] VITALS: BP 114/78
[2018-03-25 14:51] VITALS: BP 112/82
[2018-03-25 16:14] VITALS: BP 116/88
[2018-03-26] MEDS: BUTALBITAL/ACETAMINOPHEN/CAFFEINE 50-325-40 MG TABLET PO PRN ×5 (00:03→19:24)
[2018-03-26 00:04] VITALS: BP 105/88
[2018-03-26 04:03] VITALS: BP 104/80
[2018-03-26] MEDS: IBUPROFEN 600 MG TABLET PO PRN (04:03)
[2018-03-26] MEDS: ALBUTEROL SULFATE HFA 90 MCG/PUFF 8 GM INHALER IH PRN (04:15)
[2018-03-26 06:54] VITALS: BP 115/74
[2018-03-26] MEDS: LITHIUM CARBONATE 300 MG CAPSULE PO SCH ×3 (07:03→17:02)
[2018-03-26 08:12] VITALS: BP 107/71
[2018-03-26] MEDS: QUEtiapine FUMARATE 100 MG TABLET PO SCH ×3 (08:18→17:02)
[2018-03-26] MEDS: FLUoxetine HCL 20 MG CAPSULE PO SCH (08:18)
[2018-03-26] MEDS: CHOLECALCIFEROL (VIT D3) 1,000 UNITS TABLET PO SCH (08:18)
[2018-03-26] MEDS: MULTIVITAMINS, THERAPEUTIC TABLET PO SCH (08:18)
[2018-03-26] MEDS: OMEPRAZOLE 20 MG CAPSULE PO SCH (08:18)
[2018-03-26] MEDS: DOCUSATE SODIUM 100 MG CAPSULE PO SCH (08:18)
[2018-03-26] MEDS: ALBUTEROL SULFATE 2.5 MG/0.5 ML NEB SOLUTION NEB SCH ×2 (08:20→18:13)
[2018-03-26] MEDS: IPRATROPIUM BROMIDE 0.5 MG/2.5 ML NEB SOLUTION NEB SCH ×2 (08:20→18:13)
[2018-03-26 10:55] VITALS: BP 110/74
[2018-03-26 16:05] VITALS: BP 114/73
[2018-03-27 00:06] VITALS: BP 120/81
[2018-03-27] MEDS: IBUPROFEN 600 MG TABLET PO PRN (00:08)
[2018-03-27] MEDS: LORazepam 2 MG TABLET PO PRN (00:08)
[2018-03-27 04:21] VITALS: BP 125/89
[2018-03-27] MEDS: ALBUTEROL SULFATE HFA 90 MCG/PUFF 8 GM INHALER IH PRN (04:22)
[2018-03-27] MEDS: BUTALBITAL/ACETAMINOPHEN/CAFFEINE 50-325-40 MG TABLET PO PRN ×3 (06:39→16:55)
[2018-03-27] MEDS: LITHIUM CARBONATE 300 MG CAPSULE PO SCH ×3 (07:04→16:54)
[2018-03-27 08:19] VITALS: BP 121/76
[2018-03-27] MEDS: OMEPRAZOLE 20 MG CAPSULE PO SCH (09:16)
[2018-03-27] MEDS: MULTIVITAMINS, THERAPEUTIC TABLET PO SCH (09:16)
[2018-03-27] MEDS: DOCUSATE SODIUM 100 MG CAPSULE PO SCH (09:16)
[2018-03-27] MEDS: FLUoxetine HCL 20 MG CAPSULE PO SCH (09:16)
[2018-03-27] MEDS: CHOLECALCIFEROL (VIT D3) 1,000 UNITS TABLET PO SCH (09:16)
[2018-03-27] MEDS: ALBUTEROL SULFATE 2.5 MG/0.5 ML NEB SOLUTION NEB SCH ×2 (09:17→18:01)
[2018-03-27] MEDS: IPRATROPIUM BROMIDE 0.5 MG/2.5 ML NEB SOLUTION NEB SCH ×2 (09:17→18:00)
[2018-03-27] MEDS: QUEtiapine FUMARATE 100 MG TABLET PO SCH ×3 (09:17→16:54)
[2018-03-27 16:59] VITALS: BP 119/76
[2018-03-28 01:40] VITALS: BP 130/81
[2018-03-28] MEDS: BUTALBITAL/ACETAMINOPHEN/CAFFEINE 50-325-40 MG TABLET PO PRN ×4 (01:45→16:06)
[2018-03-28] MEDS: LORazepam 2 MG TABLET PO PRN (01:45)
[2018-03-28 05:11] VITALS: BP 121/68
[2018-03-28] MEDS: IBUPROFEN 600 MG TABLET PO PRN (05:12)
[2018-03-28 06:30] VITALS: BP 118/62
[2018-03-28] MEDS: LITHIUM CARBONATE 300 MG CAPSULE PO SCH ×3 (07:12→17:15)
[2018-03-28 08:00] VITALS: BP 118/66
[2018-03-28] MEDS: QUEtiapine FUMARATE 100 MG TABLET PO SCH ×3 (09:08→17:15)
[2018-03-28] MEDS: DOCUSATE SODIUM 100 MG CAPSULE PO SCH (09:09)
[2018-03-28] MEDS: OMEPRAZOLE 20 MG CAPSULE PO SCH (09:09)
[2018-03-28] MEDS: IPRATROPIUM BROMIDE 0.5 MG/2.5 ML NEB SOLUTION NEB SCH ×2 (09:09→18:25)
[2018-03-28] MEDS: ALBUTEROL SULFATE 2.5 MG/0.5 ML NEB SOLUTION NEB SCH ×2 (09:09→18:25)
[2018-03-28] MEDS: FLUoxetine HCL 20 MG CAPSULE PO SCH (09:09)
[2018-03-28] MEDS: MULTIVITAMINS, THERAPEUTIC TABLET PO SCH (09:09)
[2018-03-28] MEDS: CHOLECALCIFEROL (VIT D3) 1,000 UNITS TABLET PO SCH (09:09)
[2018-03-28 16:07] VITALS: BP 108/64
[2018-03-29 02:55] VITALS: BP 121/67
[2018-03-29] MEDS: LORazepam 2 MG TABLET PO PRN (02:55)
[2018-03-29] MEDS: BUTALBITAL/ACETAMINOPHEN/CAFFEINE 50-325-40 MG TABLET PO PRN ×4 (02:55→20:23)
[2018-03-29] MEDS: ALBUTEROL SULFATE HFA 90 MCG/PUFF 8 GM INHALER IH PRN (04:57)
[2018-03-29] MEDS: LITHIUM CARBONATE 300 MG CAPSULE PO SCH ×3 (07:11→16:21)
[2018-03-29 08:06] VITALS: BP 121/70
[2018-03-29] MEDS: CHOLECALCIFEROL (VIT D3) 1,000 UNITS TABLET PO SCH (09:11)
[2018-03-29] MEDS: DOCUSATE SODIUM 100 MG CAPSULE PO SCH (09:11)
[2018-03-29] MEDS: ALBUTEROL SULFATE 2.5 MG/0.5 ML NEB SOLUTION NEB SCH ×2 (09:11→16:21)
[2018-03-29] MEDS: OMEPRAZOLE 20 MG CAPSULE PO SCH (09:11)
[2018-03-29] MEDS: IPRATROPIUM BROMIDE 0.5 MG/2.5 ML NEB SOLUTION NEB SCH ×2 (09:11→16:22)
[2018-03-29] MEDS: QUEtiapine FUMARATE 100 MG TABLET PO SCH ×3 (09:11→16:21)
[2018-03-29] MEDS: MULTIVITAMINS, THERAPEUTIC TABLET PO SCH (09:11)
[2018-03-29] MEDS: FLUoxetine HCL 20 MG CAPSULE PO SCH (09:11)
[2018-03-29] MEDS: IBUPROFEN 600 MG TABLET PO PRN (09:15)
[2018-03-29 16:28] VITALS: BP 115/73
[2018-03-30 00:52] VITALS: BP 118/70
[2018-03-30 03:55] VITALS: BP 127/87
[2018-03-30] MEDS: BUTALBITAL/ACETAMINOPHEN/CAFFEINE 50-325-40 MG TABLET PO PRN ×3 (03:59→12:31)
[2018-03-30] MEDS: ALBUTEROL SULFATE HFA 90 MCG/PUFF 8 GM INHALER IH PRN (04:09)
[2018-03-30] MEDS: LITHIUM CARBONATE 300 MG CAPSULE PO SCH ×3 (07:03→16:31)
[2018-03-30 08:16] VITALS: BP 118/64
[2018-03-30 08:24] VITALS: BP 118/64
[2018-03-30] MEDS: DOCUSATE SODIUM 100 MG CAPSULE PO SCH (08:54)
[2018-03-30] MEDS: QUEtiapine FUMARATE 100 MG TABLET PO SCH ×3 (08:54→16:32)
[2018-03-30] MEDS: CHOLECALCIFEROL (VIT D3) 1,000 UNITS TABLET PO SCH (08:54)
[2018-03-30] MEDS: FLUoxetine HCL 20 MG CAPSULE PO SCH (08:54)
[2018-03-30] MEDS: OMEPRAZOLE 20 MG CAPSULE PO SCH (08:54)
[2018-03-30] MEDS: MULTIVITAMINS, THERAPEUTIC TABLET PO SCH (08:54)
[2018-03-30] MEDS: ALBUTEROL SULFATE 2.5 MG/0.5 ML NEB SOLUTION NEB SCH ×2 (08:55→16:26)
[2018-03-30] MEDS: IPRATROPIUM BROMIDE 0.5 MG/2.5 ML NEB SOLUTION NEB SCH ×2 (08:55→16:26)
[2018-03-30] MEDS ORDERED: LITH300C3 PO (11:55)
[2018-03-30 12:31] VITALS: BP 112/66
== END 2018-03-30 17:02 | disposition home or self-care (01) | DRG 885 ==
LOC: B2X 14:27
PROVIDERS: ADMIT Psychiatry & Neurology Psychiatry; ATTEND Psychiatry & Neurology Psychiatry
DX: F25.0 Schizoaffective disorder, bipolar type (principal); R45.851 Suicidal ideations; Z68.1 Body mass index [BMI] 19.9 or less, adult; E46 Unspecified protein-calorie malnutrition; K21.9 Gastro-esophageal reflux disease without esophagitis; D72.829 Elevated white blood cell count, unspecified; E03.9 Hypothyroidism, unspecified; E55.9 Vitamin D deficiency, unspecified; F17.200 Nicotine dependence, unspecified, uncomplicated; F41.9 Anxiety disorder, unspecified; G47.00 Insomnia, unspecified; J44.9 Chronic obstructive pulmonary disease, unspecified; Z90.710 Acquired absence of both cervix and uterus; Z71.6 Tobacco abuse counseling; Z79.899 Other long term (current) drug therapy
CPT/HCPCS: 84439; 84443; J3535

== ENCOUNTER 2018-04-19 22:48 | Inpatient (IN) | payer MEDICARE, MEDICAID ==
[~2018-04-19] VITALS: Ht 154.9 cm; Wt 44.1 kg
[~2018-04-19 22:48] MED LIST changes: -ALBU8HFA IH; -MULT-1203 PO; -VITAD1000 PO
[2018-04-19 22:59] VITALS: BP 148/78
[2018-04-19] MEDS ORDERED: HALOPERIDOL 5 MG TABLET PO PRN (23:15)
[2018-04-19] MEDS ORDERED: ZOLPIDEM TARTRATE 10 MG TABLET PO PRN (23:15)
[2018-04-19] MEDS ORDERED: LORazepam 2 MG TABLET PO PRN (23:15)
[2018-04-20 00:14] VITALS: BP 121/68
[2018-04-20] MEDS ORDERED: -PHARMACY VACCINE NOTE- MISC ONE (00:15)
[2018-04-20 08:46] LABS: BASOPHILS % (AUTO) 0.7 % (0.0-2.0); HEMATOCRIT 37.6 % (36-46); HEMOGLOBIN 12.3 g/dL (12.0-16.0); LYMPHOCYTES # (AUTO) 2.9 K/uL (1.0-4.8); LYMPHOCYTES % (AUTO) 24.8 % (22.0-44.0); MEAN CORPUSCULAR HGB CONC 32.7 G/dL (31.0-37.0); MEAN CORPUSCULAR VOLUME 89 fL (80-100); MONOCYTES % (AUTO) 8.9 % (2.0-9.0); NEUTROPHILS # (AUTO) 7.4 K/uL (1.8-7.7); NEUTROPHILS % (AUTO) 64.6 % (40.0-70.0); PLATELET COUNT (AUTO) 271 K/uL (150-450); RED BLOOD CELL COUNT(AUTO) 4.24 MIL/uL (4.00-5.20); RED CELL DISTRIBUTION WIDTH 14.2 % (11.5-14.5)
[2018-04-20 09:02] VITALS: BP 100/60
[2018-04-20 09:05] LABS: LITHIUM < 0.20 mmol/L (0.60-1.20)
[2018-04-20 09:11] LABS: ALANINE AMINOTRANSFERASE 22 U/L (12-78); ALKALINE PHOSPHATASE 83 U/L (46-116); ANION GAP 6 mmol/L (8-16); ASPARTATE AMINOTRANSFERASE 9 U/L (15-37); BILIRUBIN,TOTAL 0.2 mg/dL (0.1-1.0); CARBON DIOXIDE 30 mmol/L (22-29); CHLORIDE 109 mmol/L (98-107); CHOL/HDL RATIO 2.1 (3.9-5.7); CHOLESTEROL 158 mg/dL (131-200); CREATININE 0.43 mg/dL (0.60-1.30); FREE T4 (FREE THYROXINE) 0.79 ng/dL (0.76-1.46); GLOMERULAR FILTR. RATE CALC > 60 mL/min (>60); GLUCOSE,RANDOM 79 mg/dL (70-110); HDL CHOLESTEROL 77 mg/dL (40-60); LDL CHOL (CALC.) 72 mg/dL (0-130); SODIUM SERUM 145 mmol/L (136-145); THYROID STIMULATING HORMONE 0.92 uIU/mL (0.36-3.74); TOTAL PROTEIN, SERUM 5.6 g/dL (6.4-8.2); TRIGLYCERIDES 44 mg/dL (15-150); UREA NITROGEN, BLOOD 19 mg/dL (7-18)
[2018-04-20 09:23] LABS: HEMOGLOBIN A1C 5.9 % (4.5-6.2)
[2018-04-20] MEDS: POTASSIUM CHLORIDE 20 MEQ ER TABLET PO ONE ×2 (10:05→12:23)
[2018-04-20] MEDS: IPRATROPIUM BROMIDE 0.5 MG/2.5 ML NEB SOLUTION NEB SCH ×2 (11:00→17:38)
[2018-04-20] MEDS: ALBUTEROL SULFATE 2.5 MG/0.5 ML NEB SOLUTION NEB SCH ×2 (11:00→17:38)
[2018-04-20] MEDS ORDERED: BENZOCAINE/MENTHOL LOZENGE MM PRN (11:30)
[2018-04-20] MEDS ORDERED: MAG HYDROX/AL HYDROX/SIMETH ES 30 ML SUSPENSION UDCUP PO PRN (11:30)
[2018-04-20] MEDS ORDERED: PETROLATUM,WHITE 71 GM JELLY TP PRN (11:30)
[2018-04-20] MEDS ORDERED: LOPERAMIDE HCL 2 MG CAPSULE PO PRN (11:30)
[2018-04-20] MEDS ORDERED: CloNIDine HCL 0.1 MG TABLET PO PRN (11:30)
[2018-04-20] MEDS ORDERED: ONDANSETRON HCL 4 MG TABLET PO PRN (11:30)
[2018-04-20] MEDS ORDERED: BACITRACIN 28.4 GM OINTMENT TP PRN (11:30)
[2018-04-20] MEDS ORDERED: MAGNESIUM HYDROXIDE SUSPENSION 30 ML UDCUP PO PRN (11:30)
[2018-04-20] MEDS ORDERED: ACETAMINOPHEN 325 MG TABLET PO PRN (11:30)
[2018-04-20] MEDS: ALBUTEROL SULFATE HFA 90 MCG/PUFF 8 GM INHALER IH PRN (11:34)
[2018-04-20] MEDS ORDERED: POTASSIUM CHLORIDE 10% 40 MEQ/30 ML LIQUID UDCUP PO ONE (14:30)
[2018-04-20] MEDS: QUEtiapine FUMARATE 100 MG TABLET PO SCH ×2 (14:40→16:48)
[2018-04-20] MEDS: IBUPROFEN 600 MG TABLET PO PRN (14:42)
[2018-04-20 16:43] VITALS: BP 130/71
[2018-04-20] MEDS: LITHIUM CARBONATE 300 MG CAPSULE PO SCH (16:48)
[2018-04-21 03:57] VITALS: BP 100/70
[2018-04-21] MEDS: ALBUTEROL SULFATE HFA 90 MCG/PUFF 8 GM INHALER IH PRN ×2 (04:05→12:47)
[2018-04-21] MEDS: BUTALBITAL/ACETAMINOPHEN/CAFFEINE 50-325-40 MG TABLET PO PRN ×3 (04:06→14:03)
[2018-04-21] MEDS: LITHIUM CARBONATE 300 MG CAPSULE PO SCH ×3 (07:00→16:25)
[2018-04-21 07:56] LABS: BASOPHILS % (AUTO) 0.6 % (0.0-2.0); EOSINOPHILS % (AUTO) 4.9 % (1.0-6.0); HEMATOCRIT 41.1 % (36-46); HEMOGLOBIN 13.3 g/dL (12.0-16.0); LYMPHOCYTES # (AUTO) 2.8 K/uL (1.0-4.8); LYMPHOCYTES % (AUTO) 24.6 % (22.0-44.0); MEAN CORPUSCULAR HEMOGLOBIN 29.1 pg (26.0-34.0); MEAN CORPUSCULAR HGB CONC 32.5 G/dL (31.0-37.0); MEAN CORPUSCULAR VOLUME 90 fL (80-100); MONOCYTES # (AUTO) 0.8 K/uL (0.1-1.0); MONOCYTES % (AUTO) 7.5 % (2.0-9.0); NEUTROPHILS # (AUTO) 7.1 K/uL (1.8-7.7); NEUTROPHILS % (AUTO) 62.4 % (40.0-70.0); PLATELET COUNT (AUTO) 272 K/uL (150-450); RED BLOOD CELL COUNT(AUTO) 4.59 MIL/uL (4.00-5.20); RED CELL DISTRIBUTION WIDTH 14.8 % (11.5-14.5)
[2018-04-21 08:27] LABS: ANION GAP 6 mmol/L (8-16); CALCIUM, TOTAL 9.1 mg/dL (8.8-10.5); CARBON DIOXIDE 32 mmol/L (22-29); CHLORIDE 109 mmol/L (98-107); CREATININE 0.43 mg/dL (0.60-1.30); GLOMERULAR FILTR. RATE CALC > 60 mL/min (>60); GLUCOSE,RANDOM 73 mg/dL (70-110); POTASSIUM 4.5 mmol/L (3.5-5.1); SODIUM SERUM 147 mmol/L (136-145); UREA NITROGEN, BLOOD 18 mg/dL (7-18)
[2018-04-21] MEDS: OMEPRAZOLE 20 MG CAPSULE PO SCH (09:25)
[2018-04-21] MEDS: ALBUTEROL SULFATE 2.5 MG/0.5 ML NEB SOLUTION NEB SCH ×3 (09:25→17:00)
[2018-04-21] MEDS: FLUoxetine HCL 20 MG CAPSULE PO SCH (09:25)
[2018-04-21] MEDS: DOCUSATE SODIUM 100 MG CAPSULE PO SCH (09:25)
[2018-04-21] MEDS: IPRATROPIUM BROMIDE 0.5 MG/2.5 ML NEB SOLUTION NEB SCH ×3 (09:25→17:00)
[2018-04-21] MEDS: QUEtiapine FUMARATE 100 MG TABLET PO SCH ×3 (09:25→16:25)
[2018-04-21 09:40] VITALS: BP 122/75
[2018-04-21 14:00] VITALS: BP 115/77
[2018-04-21 16:45] VITALS: BP 103/66
[2018-04-22] MEDS: BUTALBITAL/ACETAMINOPHEN/CAFFEINE 50-325-40 MG TABLET PO PRN ×3 (04:39→13:46)
[2018-04-22] MEDS: ALBUTEROL SULFATE HFA 90 MCG/PUFF 8 GM INHALER IH PRN ×3 (04:40→16:46)
[2018-04-22 05:17] VITALS: BP 110/74
[2018-04-22] MEDS: LITHIUM CARBONATE 300 MG CAPSULE PO SCH ×3 (06:41→16:05)
[2018-04-22] MEDS: QUEtiapine FUMARATE 100 MG TABLET PO SCH ×3 (09:24→16:40)
[2018-04-22] MEDS: OMEPRAZOLE 20 MG CAPSULE PO SCH (09:24)
[2018-04-22] MEDS: FLUoxetine HCL 20 MG CAPSULE PO SCH (09:24)
[2018-04-22] MEDS: DOCUSATE SODIUM 100 MG CAPSULE PO SCH (09:24)
[2018-04-22] MEDS: ALBUTEROL SULFATE 2.5 MG/0.5 ML NEB SOLUTION NEB SCH ×2 (09:25→16:04)
[2018-04-22] MEDS: IPRATROPIUM BROMIDE 0.5 MG/2.5 ML NEB SOLUTION NEB SCH ×2 (09:25→16:04)
[2018-04-22 09:43] VITALS: BP 132/78
[2018-04-22 13:45] VITALS: BP 128/80
[2018-04-22 17:10] VITALS: BP 111/77
[2018-04-23 03:04] VITALS: BP_SYST 114; BP_SYST 130; BP_DIAS 81
[2018-04-23] MEDS: BUTALBITAL/ACETAMINOPHEN/CAFFEINE 50-325-40 MG TABLET PO PRN ×5 (03:07→20:32)
[2018-04-23] MEDS: ALBUTEROL SULFATE HFA 90 MCG/PUFF 8 GM INHALER IH PRN ×2 (03:07→12:33)
[2018-04-23] MEDS: LITHIUM CARBONATE 300 MG CAPSULE PO SCH ×3 (06:47→17:02)
[2018-04-23 07:56] LABS: ANION GAP 4 mmol/L (8-16); CALCIUM, TOTAL 9.3 mg/dL (8.8-10.5); CARBON DIOXIDE 31 mmol/L (22-29); CHLORIDE 104 mmol/L (98-107); CREATININE 0.34 mg/dL (0.60-1.30); GLOMERULAR FILTR. RATE CALC > 60 mL/min (>60); GLUCOSE,RANDOM 75 mg/dL (70-110); POTASSIUM 4.6 mmol/L (3.5-5.1); SODIUM SERUM 139 mmol/L (136-145); UREA NITROGEN, BLOOD 10 mg/dL (7-18)
[2018-04-23] MEDS: ALBUTEROL SULFATE 2.5 MG/0.5 ML NEB SOLUTION NEB SCH ×2 (08:07→17:01)
[2018-04-23] MEDS: IPRATROPIUM BROMIDE 0.5 MG/2.5 ML NEB SOLUTION NEB SCH ×2 (08:07→17:01)
[2018-04-23] MEDS: OMEPRAZOLE 20 MG CAPSULE PO SCH (08:08)
[2018-04-23] MEDS: QUEtiapine FUMARATE 100 MG TABLET PO SCH ×3 (08:08→17:02)
[2018-04-23] MEDS: DOCUSATE SODIUM 100 MG CAPSULE PO SCH (08:08)
[2018-04-23] MEDS: FLUoxetine HCL 20 MG CAPSULE PO SCH (08:08)
[2018-04-23 08:20] VITALS: BP 125/77
[2018-04-23 11:15] VITALS: BP 127/81
[2018-04-23 15:20] VITALS: BP 114/87
[2018-04-23 16:16] VITALS: BP 114/87
[2018-04-23 20:31] VITALS: BP 121/73
[2018-04-24 02:07] VITALS: BP 124/82
[2018-04-24] MEDS: BUTALBITAL/ACETAMINOPHEN/CAFFEINE 50-325-40 MG TABLET PO PRN ×4 (02:11→16:23)
[2018-04-24] MEDS: ALBUTEROL SULFATE HFA 90 MCG/PUFF 8 GM INHALER IH PRN (02:12)
[2018-04-24 06:18] VITALS: BP 117/84
[2018-04-24] MEDS: LITHIUM CARBONATE 300 MG CAPSULE PO SCH ×3 (07:00→16:23)
[2018-04-24 08:09] VITALS: BP 113/77
[2018-04-24] MEDS: IPRATROPIUM BROMIDE 0.5 MG/2.5 ML NEB SOLUTION NEB SCH ×2 (09:05→16:23)
[2018-04-24] MEDS: ALBUTEROL SULFATE 2.5 MG/0.5 ML NEB SOLUTION NEB SCH ×2 (09:05→16:23)
[2018-04-24] MEDS: FLUoxetine HCL 20 MG CAPSULE PO SCH (09:06)
[2018-04-24] MEDS: QUEtiapine FUMARATE 100 MG TABLET PO SCH ×3 (09:06→16:23)
[2018-04-24] MEDS: DOCUSATE SODIUM 100 MG CAPSULE PO SCH (09:06)
[2018-04-24] MEDS: OMEPRAZOLE 20 MG CAPSULE PO SCH (09:06)
[2018-04-24] MEDS: FLUTICASONE PROPIONATE HFA 110 MCG/PUFF 12 GM INHALER IH SCH ×2 (11:45→16:24)
[2018-04-24 16:09] VITALS: BP 115/80
[2018-04-25 00:45] VITALS: BP 123/78
[2018-04-25] MEDS: BUTALBITAL/ACETAMINOPHEN/CAFFEINE 50-325-40 MG TABLET PO PRN ×6 (00:48→22:08)
[2018-04-25] MEDS: ALBUTEROL SULFATE HFA 90 MCG/PUFF 8 GM INHALER IH PRN ×3 (00:49→10:17)
[2018-04-25] MEDS: LITHIUM CARBONATE 300 MG CAPSULE PO SCH ×3 (07:00→17:00)
[2018-04-25 08:27] VITALS: BP 118/69
[2018-04-25] MEDS: DOCUSATE SODIUM 100 MG CAPSULE PO SCH (08:37)
[2018-04-25] MEDS: OMEPRAZOLE 20 MG CAPSULE PO SCH (08:37)
[2018-04-25] MEDS: ALBUTEROL SULFATE 2.5 MG/0.5 ML NEB SOLUTION NEB SCH ×2 (08:37→17:33)
[2018-04-25] MEDS: QUEtiapine FUMARATE 100 MG TABLET PO SCH ×3 (08:37→17:00)
[2018-04-25] MEDS: FLUoxetine HCL 20 MG CAPSULE PO SCH (08:37)
[2018-04-25] MEDS: FLUTICASONE PROPIONATE HFA 110 MCG/PUFF 12 GM INHALER IH SCH ×2 (08:37→16:36)
[2018-04-25] MEDS: IPRATROPIUM BROMIDE 0.5 MG/2.5 ML NEB SOLUTION NEB SCH ×2 (08:38→17:33)
[2018-04-25 08:57] LABS: MAGNESIUM 2.3 mg/dL (1.80-2.40); PHOSPHORUS 4.2 mg/dL (2.5-4.9)
[2018-04-25 09:25] VITALS: BP 129/79
[2018-04-25 13:30] VITALS: BP 122/75
[2018-04-25 16:19] VITALS: BP 121/82
[2018-04-26 00:39] VITALS: BP 138/80
[2018-04-26] MEDS: IBUPROFEN 600 MG TABLET PO PRN (02:23)
[2018-04-26] MEDS: BUTALBITAL/ACETAMINOPHEN/CAFFEINE 50-325-40 MG TABLET PO PRN ×4 (06:39→21:36)
[2018-04-26] MEDS: LITHIUM CARBONATE 300 MG CAPSULE PO SCH ×3 (06:50→17:24)
[2018-04-26] MEDS: OMEPRAZOLE 20 MG CAPSULE PO SCH (09:00)
[2018-04-26] MEDS: FLUoxetine HCL 20 MG CAPSULE PO SCH (09:00)
[2018-04-26] MEDS: DOCUSATE SODIUM 100 MG CAPSULE PO SCH (09:00)
[2018-04-26] MEDS: QUEtiapine FUMARATE 100 MG TABLET PO SCH ×3 (09:00→17:24)
[2018-04-26] MEDS: ALBUTEROL SULFATE 2.5 MG/0.5 ML NEB SOLUTION NEB SCH ×3 (09:00→17:24)
[2018-04-26] MEDS: IPRATROPIUM BROMIDE 0.5 MG/2.5 ML NEB SOLUTION NEB SCH ×3 (09:00→17:24)
[2018-04-26] MEDS: FLUTICASONE PROPIONATE HFA 110 MCG/PUFF 12 GM INHALER IH SCH ×2 (09:26→17:24)
[2018-04-26 09:36] VITALS: BP 108/67
[2018-04-26 10:43] VITALS: BP 112/74
[2018-04-26 15:21] VITALS: BP 132/89
[2018-04-26 16:13] VITALS: BP 115/85
[2018-04-26 21:37] VITALS: BP 109/74
[2018-04-27 05:16] VITALS: BP 129/72
[2018-04-27] MEDS: BUTALBITAL/ACETAMINOPHEN/CAFFEINE 50-325-40 MG TABLET PO PRN ×4 (05:24→18:11)
[2018-04-27] MEDS: ALBUTEROL SULFATE HFA 90 MCG/PUFF 8 GM INHALER IH PRN ×2 (06:12→15:49)
[2018-04-27] MEDS: LITHIUM CARBONATE 300 MG CAPSULE PO SCH ×3 (06:53→16:49)
[2018-04-27 08:31] VITALS: BP 104/64
[2018-04-27] MEDS: DOCUSATE SODIUM 100 MG CAPSULE PO SCH (09:00)
[2018-04-27] MEDS: OMEPRAZOLE 20 MG CAPSULE PO SCH (09:00)
[2018-04-27] MEDS: QUEtiapine FUMARATE 100 MG TABLET PO SCH ×3 (09:00→16:50)
[2018-04-27] MEDS: FLUTICASONE PROPIONATE HFA 110 MCG/PUFF 12 GM INHALER IH SCH ×2 (09:02→16:49)
[2018-04-27] MEDS: IPRATROPIUM BROMIDE 0.5 MG/2.5 ML NEB SOLUTION NEB SCH ×2 (09:03→17:33)
[2018-04-27] MEDS: ALBUTEROL SULFATE 2.5 MG/0.5 ML NEB SOLUTION NEB SCH ×2 (09:03→17:33)
[2018-04-27] MEDS: FLUoxetine HCL 20 MG CAPSULE PO SCH (09:03)
[2018-04-27 09:30] VITALS: BP 114/70
[2018-04-27 14:02] VITALS: BP 134/79
[2018-04-27 18:11] VITALS: BP 117/79
[2018-04-27 20:16] VITALS: BP 128/89
[2018-04-28 04:00] VITALS: BP 124/79
[2018-04-28] MEDS: BUTALBITAL/ACETAMINOPHEN/CAFFEINE 50-325-40 MG TABLET PO PRN ×3 (04:10→12:14)
[2018-04-28] MEDS: LITHIUM CARBONATE 300 MG CAPSULE PO SCH ×2 (07:04→11:30)
[2018-04-28 08:00] VITALS: BP 126/75
[2018-04-28] MEDS: QUEtiapine FUMARATE 100 MG TABLET PO SCH ×2 (08:22→13:00)
[2018-04-28] MEDS: DOCUSATE SODIUM 100 MG CAPSULE PO SCH (08:22)
[2018-04-28] MEDS: FLUoxetine HCL 20 MG CAPSULE PO SCH (08:22)
[2018-04-28] MEDS: FLUTICASONE PROPIONATE HFA 110 MCG/PUFF 12 GM INHALER IH SCH (08:22)
[2018-04-28] MEDS: OMEPRAZOLE 20 MG CAPSULE PO SCH (08:22)
[2018-04-28] MEDS: IPRATROPIUM BROMIDE 0.5 MG/2.5 ML NEB SOLUTION NEB SCH (08:23)
[2018-04-28] MEDS: ALBUTEROL SULFATE 2.5 MG/0.5 ML NEB SOLUTION NEB SCH (08:23)
[2018-04-28 08:49] VITALS: BP 131/78
[2018-04-28] MEDS ORDERED: FLUT44HFA IH (09:34)
[2018-04-28 12:10] VITALS: BP 119/70
== END 2018-04-28 14:45 | disposition home or self-care (01) | DRG 885 ==
LOC: B2S 23:15
PROVIDERS: ADMIT Psychiatry & Neurology Psychiatry; ATTEND Psychiatry & Neurology Psychiatry
DX: F25.9 Schizoaffective disorder, unspecified (principal); E46 Unspecified protein-calorie malnutrition; Z68.1 Body mass index [BMI] 19.9 or less, adult; R45.851 Suicidal ideations; E03.9 Hypothyroidism, unspecified; G47.00 Insomnia, unspecified; F41.9 Anxiety disorder, unspecified; F17.200 Nicotine dependence, unspecified, uncomplicated; E55.9 Vitamin D deficiency, unspecified; J44.9 Chronic obstructive pulmonary disease, unspecified; E87.6 Hypokalemia; K21.9 Gastro-esophageal reflux disease without esophagitis; N95.1 Menopausal and female climacteric states; Z90.710 Acquired absence of both cervix and uterus; Z71.6 Tobacco abuse counseling; Z71.3 Dietary counseling and surveillance
CPT/HCPCS: 83036; 83735; 84100; 84439; 84443; 87081; J3535

== ENCOUNTER 2018-06-14 21:17 | Inpatient (IN) | payer MEDICARE, MEDICAID ==
[~2018-06-14] VITALS: Ht 154.9 cm; Wt 42.8 kg
[~2018-06-14 21:17] MED LIST changes: +FLUT44HFA IH
[2018-06-14 21:26] VITALS: BP 139/89
[2018-06-14] MEDS ORDERED: LORazepam 2 MG TABLET PO PRN (21:45)
[2018-06-14] MEDS ORDERED: ZOLPIDEM TARTRATE 10 MG TABLET PO PRN ×2 (21:45→22:00)
[2018-06-14] MEDS ORDERED: HALOPERIDOL 5 MG TABLET PO PRN ×2 (21:45→22:00)
[2018-06-14 22:15] VITALS: BP 131/83
[2018-06-14] MEDS ORDERED: MAGNESIUM HYDROXIDE SUSPENSION 30 ML UDCUP PO PRN (22:45)
[2018-06-14] MEDS ORDERED: BENZOCAINE/MENTHOL LOZENGE MM PRN (22:45)
[2018-06-14] MEDS ORDERED: BACITRACIN 28.4 GM OINTMENT TP PRN (22:45)
[2018-06-14] MEDS ORDERED: PETROLATUM,WHITE 28 GM JELLY TP PRN (22:45)
[2018-06-14] MEDS ORDERED: ACETAMINOPHEN 325 MG TABLET PO PRN (22:45)
[2018-06-14] MEDS ORDERED: MAG HYDROX/AL HYDROX/SIMETH ES 30 ML SUSPENSION UDCUP PO PRN (22:45)
[2018-06-14] MEDS ORDERED: CloNIDine HCL 0.1 MG TABLET PO PRN (22:45)
[2018-06-14] MEDS ORDERED: LOPERAMIDE HCL 2 MG CAPSULE PO PRN (22:45)
[2018-06-15] MEDS: IBUPROFEN 600 MG TABLET PO PRN ×2 (00:31→12:56)
[2018-06-15 00:33] VITALS: BP 126/80
[2018-06-15] MEDS ORDERED: PNEUMOCOCCAL VACCINE POLYVALENT 0.5 ML VIAL [PPSV23] IM ONE (01:15)
[2018-06-15 08:03] VITALS: BP 121/81
[2018-06-15] MEDS: NICOTINE 21 MG/24 HOUR PATCH TD SCH (09:00)
[2018-06-15] MEDS: DOCUSATE SODIUM 100 MG CAPSULE PO SCH (09:00)
[2018-06-15] MEDS: OMEPRAZOLE 20 MG CAPSULE PO SCH (09:00)
[2018-06-15] MEDS: IPRATROPIUM BROMIDE 0.5 MG/2.5 ML NEB SOLUTION NEB PRN (09:56)
[2018-06-15] MEDS: ALBUTEROL SULFATE 2.5 MG/0.5 ML NEB SOLUTION NEB PRN (09:56)
[2018-06-15] MEDS: LORazepam 2 MG TABLET PO PRN (12:55)
[2018-06-15 12:56] VITALS: BP 118/78
[2018-06-15] MEDS: QUEtiapine FUMARATE 100 MG TABLET PO SCH ×2 (13:21→17:06)
[2018-06-15 16:06] VITALS: BP 111/65
[2018-06-15] MEDS: LITHIUM CARBONATE 300 MG CAPSULE PO SCH (17:06)
[2018-06-16 06:47] VITALS: BP 108/64
[2018-06-16] MEDS: LITHIUM CARBONATE 300 MG CAPSULE PO SCH ×3 (07:01→17:00)
[2018-06-16 08:04] VITALS: BP 128/76
[2018-06-16] MEDS: NICOTINE 21 MG/24 HOUR PATCH TD SCH (09:00)
[2018-06-16 09:03] LABS: BASOPHILS % (AUTO) 0.7 % (0.0-2.0); EOSINOPHILS % (AUTO) 0.6 % (1.0-6.0); HEMATOCRIT 38.6 % (36-46); HEMOGLOBIN 12.6 g/dL (12.0-16.0); LYMPHOCYTES # (AUTO) 1.5 K/uL (1.0-4.8); LYMPHOCYTES % (AUTO) 15.8 % (22.0-44.0); MEAN CORPUSCULAR HEMOGLOBIN 28.8 pg (26.0-34.0); MEAN CORPUSCULAR HGB CONC 32.7 G/dL (31.0-37.0); MEAN CORPUSCULAR VOLUME 88 fL (80-100); MONOCYTES # (AUTO) 0.4 K/uL (0.1-1.0); MONOCYTES % (AUTO) 4.7 % (2.0-9.0); NEUTROPHILS # (AUTO) 7.4 K/uL (1.8-7.7); NEUTROPHILS % (AUTO) 78.2 % (40.0-70.0); PLATELET COUNT (AUTO) 281 K/uL (150-450); RED BLOOD CELL COUNT(AUTO) 4.38 MIL/uL (4.00-5.20); RED CELL DISTRIBUTION WIDTH 14.3 % (11.5-14.5)
[2018-06-16 09:39] LABS: HEMOGLOBIN A1C 5.8 % (4.5-6.2)
[2018-06-16] MEDS: DOCUSATE SODIUM 100 MG CAPSULE PO SCH (09:52)
[2018-06-16] MEDS: FLUoxetine HCL 20 MG CAPSULE PO SCH (09:52)
[2018-06-16] MEDS: QUEtiapine FUMARATE 100 MG TABLET PO SCH ×3 (09:52→17:00)
[2018-06-16] MEDS: OMEPRAZOLE 20 MG CAPSULE PO SCH (09:52)
[2018-06-16] MEDS: CHOLECALCIFEROL (VIT D3) 1,000 UNITS TABLET PO SCH (09:52)
[2018-06-16 10:04] LABS: ALANINE AMINOTRANSFERASE 14 U/L (12-78); ALBUMIN 2.6 g/dL (3.4-5.0); ALKALINE PHOSPHATASE 103 U/L (46-116); ANION GAP 6 mmol/L (8-16); ASPARTATE AMINOTRANSFERASE 11 U/L (15-37); BILIRUBIN,TOTAL 0.3 mg/dL (0.1-1.0); CALCIUM, TOTAL 8.8 mg/dL (8.8-10.5); CARBON DIOXIDE 30 mmol/L (22-29); CHLORIDE 109 mmol/L (98-107); CHOL/HDL RATIO 3.2 (3.9-5.7); CHOLESTEROL 171 mg/dL (131-200); CREATININE 0.51 mg/dL (0.60-1.30); FREE T4 (FREE THYROXINE) 0.83 ng/dL (0.76-1.46); GLOMERULAR FILTR. RATE CALC > 60 mL/min (>60); GLUCOSE,RANDOM 73 mg/dL (70-110); HDL CHOLESTEROL 54 mg/dL (40-60); LDL CHOL (CALC.) 97 mg/dL (0-130); SODIUM SERUM 145 mmol/L (136-145); THYROID STIMULATING HORMONE 0.69 uIU/mL (0.36-3.74); TOTAL PROTEIN, SERUM 5.3 g/dL (6.4-8.2); TRIGLYCERIDES 101 mg/dL (15-150); UREA NITROGEN, BLOOD 13 mg/dL (7-18)
[2018-06-16 13:34] VITALS: BP 124/78
[2018-06-16] MEDS: BUTALBITAL/ACETAMINOPHEN/CAFFEINE 50-325-40 MG TABLET PO PRN (13:34)
[2018-06-16] MEDS: IPRATROPIUM BROMIDE 0.5 MG/2.5 ML NEB SOLUTION NEB PRN (13:34)
[2018-06-16] MEDS: ALBUTEROL SULFATE 2.5 MG/0.5 ML NEB SOLUTION NEB PRN (13:34)
[2018-06-16] MEDS: ALBUTEROL SULFATE HFA 90 MCG/PUFF 8 GM INHALER IH PRN (15:22)
[2018-06-16 18:11] VITALS: BP 111/74
[2018-06-17 05:04] VITALS: BP 127/63
[2018-06-17] MEDS: ALBUTEROL SULFATE HFA 90 MCG/PUFF 8 GM INHALER IH PRN ×2 (05:04→15:47)
[2018-06-17] MEDS: BUTALBITAL/ACETAMINOPHEN/CAFFEINE 50-325-40 MG TABLET PO PRN ×2 (05:04→12:25)
[2018-06-17] MEDS: ALBUTEROL SULFATE 2.5 MG/0.5 ML NEB SOLUTION NEB PRN (06:15)
[2018-06-17] MEDS: IPRATROPIUM BROMIDE 0.5 MG/2.5 ML NEB SOLUTION NEB PRN (06:15)
[2018-06-17] MEDS: LITHIUM CARBONATE 300 MG CAPSULE PO SCH ×3 (06:58→16:38)
[2018-06-17 08:09] VITALS: BP 103/62
[2018-06-17] MEDS: FLUoxetine HCL 20 MG CAPSULE PO SCH (08:43)
[2018-06-17] MEDS: CHOLECALCIFEROL (VIT D3) 1,000 UNITS TABLET PO SCH (08:43)
[2018-06-17] MEDS: OMEPRAZOLE 20 MG CAPSULE PO SCH (08:43)
[2018-06-17] MEDS: DOCUSATE SODIUM 100 MG CAPSULE PO SCH (08:43)
[2018-06-17] MEDS: QUEtiapine FUMARATE 100 MG TABLET PO SCH ×3 (08:44→16:38)
[2018-06-17] MEDS: NICOTINE 21 MG/24 HOUR PATCH TD SCH (08:50)
[2018-06-17 12:25] VITALS: BP 106/61
[2018-06-17 16:02] VITALS: BP 118/67
[2018-06-18 04:48] VITALS: BP 131/76
[2018-06-18] MEDS: ALBUTEROL SULFATE HFA 90 MCG/PUFF 8 GM INHALER IH PRN ×2 (04:50→14:03)
[2018-06-18] MEDS: BUTALBITAL/ACETAMINOPHEN/CAFFEINE 50-325-40 MG TABLET PO PRN ×3 (04:50→17:01)
[2018-06-18] MEDS: IPRATROPIUM BROMIDE 0.5 MG/2.5 ML NEB SOLUTION NEB PRN (05:22)
[2018-06-18] MEDS: ALBUTEROL SULFATE 2.5 MG/0.5 ML NEB SOLUTION NEB PRN (05:22)
[2018-06-18] MEDS: LITHIUM CARBONATE 300 MG CAPSULE PO SCH ×3 (06:55→16:47)
[2018-06-18] MEDS: FLUoxetine HCL 20 MG CAPSULE PO SCH (08:06)
[2018-06-18] MEDS: QUEtiapine FUMARATE 100 MG TABLET PO SCH ×3 (08:06→16:47)
[2018-06-18] MEDS: CHOLECALCIFEROL (VIT D3) 1,000 UNITS TABLET PO SCH (08:06)
[2018-06-18] MEDS: OMEPRAZOLE 20 MG CAPSULE PO SCH (08:06)
[2018-06-18] MEDS: DOCUSATE SODIUM 100 MG CAPSULE PO SCH (08:06)
[2018-06-18] MEDS: NICOTINE 21 MG/24 HOUR PATCH TD SCH (08:11)
[2018-06-18 08:23] VITALS: BP 115/65
[2018-06-18 10:55] VITALS: BP 112/68
[2018-06-18 16:03] VITALS: BP 100/62
[2018-06-18 16:59] VITALS: BP 119/72
[2018-06-19] VITALS: BP 122/78
[2018-06-19] MEDS: BUTALBITAL/ACETAMINOPHEN/CAFFEINE 50-325-40 MG TABLET PO PRN ×4 (00:01→23:31)
[2018-06-19] MEDS: ALBUTEROL SULFATE HFA 90 MCG/PUFF 8 GM INHALER IH PRN (00:02)
[2018-06-19] MEDS: LORazepam 2 MG TABLET PO PRN (02:13)
[2018-06-19 06:03] VITALS: BP 121/74
[2018-06-19] MEDS: LITHIUM CARBONATE 300 MG CAPSULE PO SCH ×3 (07:00→17:23)
[2018-06-19] MEDS: OMEPRAZOLE 20 MG CAPSULE PO SCH (08:10)
[2018-06-19] MEDS: FLUoxetine HCL 20 MG CAPSULE PO SCH (08:10)
[2018-06-19] MEDS: CHOLECALCIFEROL (VIT D3) 1,000 UNITS TABLET PO SCH (08:10)
[2018-06-19] MEDS: QUEtiapine FUMARATE 100 MG TABLET PO SCH ×3 (08:10→17:23)
[2018-06-19] MEDS: DOCUSATE SODIUM 100 MG CAPSULE PO SCH (08:10)
[2018-06-19] MEDS: NICOTINE 21 MG/24 HOUR PATCH TD SCH (08:12)
[2018-06-19 12:12] VITALS: BP 116/72
[2018-06-19] MEDS: ONDANSETRON HCL 4 MG TABLET PO PRN (22:40)
[2018-06-20 00:04] VITALS: BP 116/84
[2018-06-20] MEDS: LORazepam 2 MG TABLET PO PRN (03:04)
[2018-06-20 05:40] VITALS: BP 118/82
[2018-06-20] MEDS: BUTALBITAL/ACETAMINOPHEN/CAFFEINE 50-325-40 MG TABLET PO PRN ×3 (05:47→22:47)
[2018-06-20] MEDS: LITHIUM CARBONATE 300 MG CAPSULE PO SCH ×3 (07:00→20:40)
[2018-06-20 08:30] VITALS: BP 131/82
[2018-06-20] MEDS: QUEtiapine FUMARATE 100 MG TABLET PO SCH ×3 (09:00→19:44)
[2018-06-20] MEDS: OMEPRAZOLE 20 MG CAPSULE PO SCH (09:00)
[2018-06-20] MEDS: FLUoxetine HCL 20 MG CAPSULE PO SCH (09:00)
[2018-06-20] MEDS: DOCUSATE SODIUM 100 MG CAPSULE PO SCH (09:00)
[2018-06-20] MEDS: NICOTINE 21 MG/24 HOUR PATCH TD SCH (09:00)
[2018-06-20] MEDS: CHOLECALCIFEROL (VIT D3) 1,000 UNITS TABLET PO SCH (09:35)
[2018-06-20] MEDS: ONDANSETRON HCL 4 MG TABLET PO PRN (14:16)
[2018-06-20 16:25] VITALS: BP 115/75
[2018-06-20] MEDS ORDERED: DOCUSATE SODIUM 100 MG CAPSULE PO PRN (22:30)
[2018-06-20] MEDS ORDERED: OMEPRAZOLE 20 MG CAPSULE PO PRN (22:30)
[2018-06-20 22:47] VITALS: BP 131/84
[2018-06-21 00:15] VITALS: BP 118/82
[2018-06-21] MEDS: LORazepam 2 MG TABLET PO PRN (00:17)
[2018-06-21] MEDS: ALBUTEROL SULFATE HFA 90 MCG/PUFF 8 GM INHALER IH PRN (03:21)
[2018-06-21] MEDS: BUTALBITAL/ACETAMINOPHEN/CAFFEINE 50-325-40 MG TABLET PO PRN ×2 (05:10→12:28)
[2018-06-21] MEDS: LITHIUM CARBONATE 300 MG CAPSULE PO SCH ×3 (06:34→16:30)
[2018-06-21 08:15] VITALS: BP 125/76
[2018-06-21] MEDS: CHOLECALCIFEROL (VIT D3) 1,000 UNITS TABLET PO SCH (08:23)
[2018-06-21] MEDS: FLUoxetine HCL 20 MG CAPSULE PO SCH (08:23)
[2018-06-21] MEDS: QUEtiapine FUMARATE 100 MG TABLET PO SCH ×3 (08:23→16:30)
[2018-06-21] MEDS: NICOTINE 21 MG/24 HOUR PATCH TD SCH (08:24)
[2018-06-21] MEDS ORDERED: NICOTINE 21 MG/24 HOUR PATCH TD PRN (09:00)
[2018-06-21 12:28] VITALS: BP 118/72
[2018-06-21 16:07] VITALS: BP 106/67
[2018-06-22 01:43] VITALS: BP 115/77
[2018-06-22] MEDS: BUTALBITAL/ACETAMINOPHEN/CAFFEINE 50-325-40 MG TABLET PO PRN ×4 (01:53→23:35)
[2018-06-22] MEDS: LITHIUM CARBONATE 300 MG CAPSULE PO SCH ×3 (06:59→16:32)
[2018-06-22 08:09] VITALS: BP 109/66
[2018-06-22] MEDS: ALBUTEROL SULFATE HFA 90 MCG/PUFF 8 GM INHALER IH PRN (08:15)
[2018-06-22 08:49] LABS: PHOSPHORUS 4.7 mg/dL (2.5-4.9)
[2018-06-22] MEDS: CHOLECALCIFEROL (VIT D3) 1,000 UNITS TABLET PO SCH (09:04)
[2018-06-22] MEDS: QUEtiapine FUMARATE 100 MG TABLET PO SCH ×3 (09:04→16:32)
[2018-06-22] MEDS: FLUoxetine HCL 20 MG CAPSULE PO SCH (09:04)
[2018-06-22] MEDS: IPRATROPIUM BROMIDE 0.5 MG/2.5 ML NEB SOLUTION NEB PRN (09:53)
[2018-06-22] MEDS: ALBUTEROL SULFATE 2.5 MG/0.5 ML NEB SOLUTION NEB PRN (09:53)
[2018-06-22 14:18] VITALS: BP 114/72
[2018-06-22 16:30] VITALS: BP 124/78
[2018-06-23 00:01] VITALS: BP 116/79
[2018-06-23] MEDS: LORazepam 2 MG TABLET PO PRN (02:00)
[2018-06-23 06:45] VITALS: BP 120/82
[2018-06-23] MEDS: BUTALBITAL/ACETAMINOPHEN/CAFFEINE 50-325-40 MG TABLET PO PRN ×2 (06:49→15:58)
[2018-06-23] MEDS: LITHIUM CARBONATE 300 MG CAPSULE PO SCH ×3 (06:49→17:18)
[2018-06-23 08:07] VITALS: BP 112/61
[2018-06-23] MEDS: QUEtiapine FUMARATE 100 MG TABLET PO SCH ×3 (08:51→17:18)
[2018-06-23] MEDS: CHOLECALCIFEROL (VIT D3) 1,000 UNITS TABLET PO SCH (08:51)
[2018-06-23] MEDS: FLUoxetine HCL 20 MG CAPSULE PO SCH (08:51)
[2018-06-23 16:20] VITALS: BP 117/74
[2018-06-24 01:40] VITALS: BP 135/80
[2018-06-24] MEDS: BUTALBITAL/ACETAMINOPHEN/CAFFEINE 50-325-40 MG TABLET PO PRN ×3 (01:49→16:50)
[2018-06-24] MEDS: LORazepam 2 MG TABLET PO PRN (06:12)
[2018-06-24] MEDS: ALBUTEROL SULFATE HFA 90 MCG/PUFF 8 GM INHALER IH PRN ×2 (06:43→08:03)
[2018-06-24] MEDS: LITHIUM CARBONATE 300 MG CAPSULE PO SCH ×3 (07:02→17:06)
[2018-06-24 08:03] VITALS: BP 125/75
[2018-06-24] MEDS: QUEtiapine FUMARATE 100 MG TABLET PO SCH ×3 (08:53→17:06)
[2018-06-24] MEDS: FLUoxetine HCL 20 MG CAPSULE PO SCH (08:53)
[2018-06-24] MEDS: CHOLECALCIFEROL (VIT D3) 1,000 UNITS TABLET PO SCH (08:53)
[2018-06-24 16:06] VITALS: BP 111/67
[2018-06-24 16:48] VITALS: BP 128/74
[2018-06-25] MEDS: ALBUTEROL SULFATE HFA 90 MCG/PUFF 8 GM INHALER IH PRN (03:52)
[2018-06-25] MEDS: BUTALBITAL/ACETAMINOPHEN/CAFFEINE 50-325-40 MG TABLET PO PRN ×3 (03:52→16:05)
[2018-06-25] MEDS: LITHIUM CARBONATE 300 MG CAPSULE PO SCH ×3 (06:23→17:05)
[2018-06-25 08:17] VITALS: BP 109/69
[2018-06-25] MEDS: QUEtiapine FUMARATE 100 MG TABLET PO SCH ×3 (08:49→17:05)
[2018-06-25] MEDS: CHOLECALCIFEROL (VIT D3) 1,000 UNITS TABLET PO SCH (08:50)
[2018-06-25] MEDS: FLUoxetine HCL 20 MG CAPSULE PO SCH (08:50)
[2018-06-25 16:01] VITALS: BP 100/74
[2018-06-26 00:02] VITALS: BP 123/79
[2018-06-26] MEDS: BUTALBITAL/ACETAMINOPHEN/CAFFEINE 50-325-40 MG TABLET PO PRN ×4 (00:05→18:55)
[2018-06-26] MEDS: ALBUTEROL SULFATE HFA 90 MCG/PUFF 8 GM INHALER IH PRN (06:20)
[2018-06-26] MEDS: LITHIUM CARBONATE 300 MG CAPSULE PO SCH ×3 (06:21→17:06)
[2018-06-26 08:11] VITALS: BP 116/78
[2018-06-26] MEDS: CHOLECALCIFEROL (VIT D3) 1,000 UNITS TABLET PO SCH (09:00)
[2018-06-26] MEDS: FLUoxetine HCL 20 MG CAPSULE PO SCH (09:00)
[2018-06-26] MEDS: QUEtiapine FUMARATE 100 MG TABLET PO SCH ×3 (09:00→17:06)
[2018-06-26 12:10] VITALS: BP 122/74
[2018-06-26 16:05] VITALS: BP 140/74
[2018-06-26 18:52] VITALS: BP 120/75
[2018-06-26] MEDS: GABAPENTIN 300 MG CAPSULE PO SCH (20:30)
[2018-06-27] MEDS: BUTALBITAL/ACETAMINOPHEN/CAFFEINE 50-325-40 MG TABLET PO PRN ×3 (02:07→16:33)
[2018-06-27 02:09] VITALS: BP 140/74
[2018-06-27] MEDS: IPRATROPIUM BROMIDE 0.5 MG/2.5 ML NEB SOLUTION NEB PRN (02:44)
[2018-06-27] MEDS: ALBUTEROL SULFATE 2.5 MG/0.5 ML NEB SOLUTION NEB PRN (02:44)
[2018-06-27] MEDS: LITHIUM CARBONATE 300 MG CAPSULE PO SCH ×3 (07:00→17:12)
[2018-06-27 08:09] VITALS: BP 131/72
[2018-06-27 08:19] VITALS: BP 131/72
[2018-06-27] MEDS: CHOLECALCIFEROL (VIT D3) 1,000 UNITS TABLET PO SCH (08:55)
[2018-06-27] MEDS: QUEtiapine FUMARATE 100 MG TABLET PO SCH ×3 (08:55→17:12)
[2018-06-27] MEDS: FLUoxetine HCL 20 MG CAPSULE PO SCH (08:55)
[2018-06-27 16:33] VITALS: BP 111/78
[2018-06-27] MEDS: GABAPENTIN 300 MG CAPSULE PO SCH (20:32)
[2018-06-28 01:10] VITALS: BP 133/81
[2018-06-28] MEDS: BUTALBITAL/ACETAMINOPHEN/CAFFEINE 50-325-40 MG TABLET PO PRN ×3 (01:16→21:15)
[2018-06-28] MEDS: ALBUTEROL SULFATE HFA 90 MCG/PUFF 8 GM INHALER IH PRN (01:16)
[2018-06-28 05:20] VITALS: BP 114/80
[2018-06-28] MEDS: LITHIUM CARBONATE 300 MG CAPSULE PO SCH ×4 (07:13→20:31)
[2018-06-28 08:13] VITALS: BP 128/69
[2018-06-28] MEDS: QUEtiapine FUMARATE 100 MG TABLET PO SCH ×4 (08:31→20:31)
[2018-06-28] MEDS: FLUoxetine HCL 20 MG CAPSULE PO SCH (08:31)
[2018-06-28] MEDS: CHOLECALCIFEROL (VIT D3) 1,000 UNITS TABLET PO SCH (08:31)
[2018-06-28] MEDS ORDERED: GABA-531 PO (09:28)
[2018-06-28 10:26] VITALS: BP 122/68
[2018-06-28 16:23] VITALS: BP 105/68
[2018-06-28] MEDS: GABAPENTIN 300 MG CAPSULE PO SCH (20:31)
[2018-06-28 21:13] VITALS: BP 130/83
[2018-06-29 05:27] VITALS: BP 134/68
[2018-06-29] MEDS: BUTALBITAL/ACETAMINOPHEN/CAFFEINE 50-325-40 MG TABLET PO PRN ×3 (05:31→21:41)
[2018-06-29] MEDS: ALBUTEROL SULFATE HFA 90 MCG/PUFF 8 GM INHALER IH PRN (05:32)
[2018-06-29] MEDS: LITHIUM CARBONATE 300 MG CAPSULE PO SCH ×4 (06:16→17:05)
[2018-06-29 06:32] VITALS: BP 116/80
[2018-06-29 08:11] VITALS: BP 122/78
[2018-06-29] MEDS: FLUoxetine HCL 20 MG CAPSULE PO SCH (08:17)
[2018-06-29] MEDS: CHOLECALCIFEROL (VIT D3) 1,000 UNITS TABLET PO SCH (08:18)
[2018-06-29] MEDS: QUEtiapine FUMARATE 100 MG TABLET PO SCH ×3 (08:18→17:05)
[2018-06-29 13:36] VITALS: BP 116/74
[2018-06-29 16:02] VITALS: BP 136/66
[2018-06-29] MEDS: GABAPENTIN 300 MG CAPSULE PO SCH (20:30)
[2018-06-29 21:30] VITALS: BP 127/74
[2018-06-30 03:00] VITALS: BP 130/82
[2018-06-30 05:37] VITALS: BP 139/77
[2018-06-30] MEDS: BUTALBITAL/ACETAMINOPHEN/CAFFEINE 50-325-40 MG TABLET PO PRN ×2 (05:45→14:00)
[2018-06-30] MEDS: LITHIUM CARBONATE 300 MG CAPSULE PO SCH ×3 (06:01→17:20)
[2018-06-30 08:16] VITALS: BP 133/77
[2018-06-30] MEDS: CHOLECALCIFEROL (VIT D3) 1,000 UNITS TABLET PO SCH (08:35)
[2018-06-30] MEDS: FLUoxetine HCL 20 MG CAPSULE PO SCH (08:35)
[2018-06-30] MEDS: QUEtiapine FUMARATE 100 MG TABLET PO SCH ×3 (08:35→17:20)
[2018-06-30] MEDS: ALBUTEROL SULFATE HFA 90 MCG/PUFF 8 GM INHALER IH PRN (08:36)
[2018-06-30 14:00] VITALS: BP 128/76
[2018-06-30 16:10] VITALS: BP 110/60
[2018-06-30] MEDS: GABAPENTIN 300 MG CAPSULE PO SCH (20:11)
[2018-07-01 03:54] VITALS: BP 130/74
[2018-07-01] MEDS: BUTALBITAL/ACETAMINOPHEN/CAFFEINE 50-325-40 MG TABLET PO PRN ×3 (03:56→20:20)
[2018-07-01] MEDS: LITHIUM CARBONATE 300 MG CAPSULE PO SCH ×3 (06:28→17:18)
[2018-07-01 08:06] VITALS: BP 124/79
[2018-07-01] MEDS: ALBUTEROL SULFATE HFA 90 MCG/PUFF 8 GM INHALER IH PRN ×2 (08:27→16:14)
[2018-07-01] MEDS: CHOLECALCIFEROL (VIT D3) 1,000 UNITS TABLET PO SCH (08:28)
[2018-07-01] MEDS: QUEtiapine FUMARATE 100 MG TABLET PO SCH ×3 (08:28→17:19)
[2018-07-01] MEDS: FLUoxetine HCL 20 MG CAPSULE PO SCH (08:28)
[2018-07-01 12:18] VITALS: BP 127/85
[2018-07-01 17:18] VITALS: BP 119/76
[2018-07-01] MEDS: GABAPENTIN 300 MG CAPSULE PO SCH (20:12)
[2018-07-01 20:20] VITALS: BP 124/78
[2018-07-02 04:45] VITALS: BP 123/63
[2018-07-02] MEDS: BUTALBITAL/ACETAMINOPHEN/CAFFEINE 50-325-40 MG TABLET PO PRN ×2 (04:48→13:17)
[2018-07-02] MEDS: LITHIUM CARBONATE 300 MG CAPSULE PO SCH ×3 (07:05→17:11)
[2018-07-02 08:06] VITALS: BP 121/82
[2018-07-02] MEDS: FLUoxetine HCL 20 MG CAPSULE PO SCH (08:47)
[2018-07-02] MEDS: QUEtiapine FUMARATE 100 MG TABLET PO SCH ×3 (08:47→17:11)
[2018-07-02] MEDS: CHOLECALCIFEROL (VIT D3) 1,000 UNITS TABLET PO SCH (08:47)
[2018-07-02 13:17] VITALS: BP 114/72
[2018-07-02 16:11] VITALS: BP 141/69
[2018-07-02] MEDS: GABAPENTIN 300 MG CAPSULE PO SCH (20:29)
[2018-07-03 00:01] VITALS: BP 125/93
[2018-07-03] MEDS: BUTALBITAL/ACETAMINOPHEN/CAFFEINE 50-325-40 MG TABLET PO PRN ×3 (00:05→16:23)
[2018-07-03 01:05] VITALS: BP 116/90
[2018-07-03 05:38] VITALS: BP 118/82
[2018-07-03] MEDS: IBUPROFEN 600 MG TABLET PO PRN (05:41)
[2018-07-03] MEDS: LITHIUM CARBONATE 300 MG CAPSULE PO SCH ×3 (06:26→17:14)
[2018-07-03 08:21] VITALS: BP 120/77
[2018-07-03] MEDS: FLUoxetine HCL 20 MG CAPSULE PO SCH (09:06)
[2018-07-03] MEDS: CHOLECALCIFEROL (VIT D3) 1,000 UNITS TABLET PO SCH (09:06)
[2018-07-03] MEDS: QUEtiapine FUMARATE 100 MG TABLET PO SCH ×3 (09:06→17:14)
[2018-07-03 16:20] VITALS: BP 119/72
[2018-07-03] MEDS: GABAPENTIN 300 MG CAPSULE PO SCH (20:36)
[2018-07-04 04:35] VITALS: BP 114/68
[2018-07-04] MEDS: BUTALBITAL/ACETAMINOPHEN/CAFFEINE 50-325-40 MG TABLET PO PRN ×2 (04:37→12:36)
[2018-07-04] MEDS: ALBUTEROL SULFATE HFA 90 MCG/PUFF 8 GM INHALER IH PRN (04:38)
[2018-07-04] MEDS: LITHIUM CARBONATE 300 MG CAPSULE PO SCH ×2 (07:00→11:30)
[2018-07-04 08:38] VITALS: BP 121/84
[2018-07-04] MEDS: QUEtiapine FUMARATE 100 MG TABLET PO SCH ×2 (09:59→12:34)
[2018-07-04] MEDS: CHOLECALCIFEROL (VIT D3) 1,000 UNITS TABLET PO SCH (10:00)
[2018-07-04] MEDS: FLUoxetine HCL 20 MG CAPSULE PO SCH (10:00)
[2018-07-04] MEDS ORDERED: VITAD1000 PO (10:08)
== END 2018-07-04 13:01 | disposition home or self-care (01) | DRG 885 ==
LOC: B2X 21:50
PROVIDERS: ADMIT Psychiatry & Neurology Psychiatry; ATTEND Psychiatry & Neurology Psychiatry
DX: F25.9 Schizoaffective disorder, unspecified (principal); E44.1 Mild protein-calorie malnutrition; E46 Unspecified protein-calorie malnutrition; Z68.1 Body mass index [BMI] 19.9 or less, adult; F17.200 Nicotine dependence, unspecified, uncomplicated; E03.9 Hypothyroidism, unspecified; J44.9 Chronic obstructive pulmonary disease, unspecified; I10 Essential (primary) hypertension; G62.9 Polyneuropathy, unspecified; G47.00 Insomnia, unspecified; G43.909 Migraine, unspecified, not intractable, without status migrainosus; F41.9 Anxiety disorder, unspecified; E55.9 Vitamin D deficiency, unspecified; K21.9 Gastro-esophageal reflux disease without esophagitis; N95.1 Menopausal and female climacteric states; Z71.6 Tobacco abuse counseling; Z90.710 Acquired absence of both cervix and uterus
CPT/HCPCS: 83036; 83735; 84100; 84439; 84443; J3535; Q0162

== ENCOUNTER 2018-10-31 22:51 | Emergency (ER) | payer MEDICARE, OTHER ==
[~2018-10-31] VITALS: Ht 154.9 cm; Wt 47.7 kg
[~2018-10-31 22:51] MED LIST changes: +ALBU8HFA PO; +DSS100 PO; -FLUT44HFA IH; +GABA-531 PO; +OMEP20 PO; +VITAD1000 PO
[2018-10-31] MEDS ORDERED: IPRATROPIUM BROMIDE 0.5 MG/2.5 ML NEB SOLUTION NEB ONE (23:00)
[2018-10-31] MEDS ORDERED: ALBUTEROL SULFATE 5 MG/ML 20 ML NEB SOLN [BULK] NEB ONE (23:00)
[2018-10-31] MEDS ORDERED: MethylPREDNISolone SOD SUCC 125 MG/2 ML VIAL IVP ONE (23:00)
[2018-10-31] MEDS ORDERED: ALBUTEROL SULFATE HFA 90 MCG/PUFF 8 GM INHALER IH ONE (23:00)
[2018-10-31 23:21] LABS: EOSINOPHILS % (AUTO) 4.3 % (1.0-6.0); HEMATOCRIT 36.6 % (36-46); HEMOGLOBIN 11.6 g/dL (12.0-16.0); LYMPHOCYTES # (AUTO) 2.7 K/uL (1.0-4.8); LYMPHOCYTES % (AUTO) 28.5 % (22.0-44.0); MEAN CORPUSCULAR HEMOGLOBIN 26.6 pg (26.0-34.0); MEAN CORPUSCULAR HGB CONC 31.7 G/dL (31.0-37.0); MEAN CORPUSCULAR VOLUME 84 fL (80-100); MONOCYTES # (AUTO) 0.8 K/uL (0.1-1.0); MONOCYTES % (AUTO) 8.8 % (2.0-9.0); NEUTROPHILS # (AUTO) 5.3 K/uL (1.8-7.7); NEUTROPHILS % (AUTO) 56.4 % (40.0-70.0); PLATELET COUNT (AUTO) 272 K/uL (150-450); RED BLOOD CELL COUNT(AUTO) 4.37 MIL/uL (4.00-5.20); RED CELL DISTRIBUTION WIDTH 17.3 % (11.5-14.5)
[2018-10-31 23:33] LABS: ANION GAP 7 mmol/L (8-16); CALCIUM, TOTAL 9.2 mg/dL (8.8-10.5); CARBON DIOXIDE 29 mmol/L (22-29); CHLORIDE 105 mmol/L (98-107); CREATININE 0.43 mg/dL (0.60-1.30); GLOMERULAR FILTR. RATE CALC > 60 mL/min (>60); GLUCOSE,RANDOM 93 mg/dL (70-110); POTASSIUM 4.2 mmol/L (3.5-5.1); SODIUM SERUM 141 mmol/L (136-145); UREA NITROGEN, BLOOD 14 mg/dL (7-18)
[2018-10-31 23:36] LABS: ALANINE AMINOTRANSFERASE 14 U/L (12-78); ALKALINE PHOSPHATASE 116 U/L (46-116); ASPARTATE AMINOTRANSFERASE 11 U/L (15-37); BILIRUBIN,TOTAL 0.2 mg/dL (0.1-1.0); TOTAL PROTEIN, SERUM 6.2 g/dL (6.4-8.2)
[2018-10-31 23:39] LABS: B-TYPE NATRIURETIC PEPTIDE 30 pg/mL (0-100)
[2018-11-01] MEDS ORDERED: ALBUTEROL SULFATE 5 MG/ML 20 ML NEB SOLN [BULK] NEB ONE (00:45)
[2018-11-01] MEDS ORDERED: IPRATROPIUM BROMIDE 0.5 MG/2.5 ML NEB SOLUTION NEB ONE (00:45)
[2018-11-01] MEDS ORDERED: IBUPROFEN 600 MG TABLET PO ONE (00:45)
[2018-11-01 03:58] VITALS: BP 103/60
[2018-11-08] MEDS ORDERED: VITAD1000 PO (13:22)
[2018-11-08] MEDS ORDERED: MULT-1239 PO (13:22)
[2018-11-08] MEDS ORDERED: OMEP20 PO (13:22)
[2018-11-08] MEDS ORDERED: CIP250 PO (13:22)
[2018-11-08] MEDS ORDERED: LITH300C3 PO (13:24)
== END 2018-11-01 03:55 | disposition home or self-care (01) ==
LOC: EMS 22:51
DX: J44.1 Chronic obstructive pulmonary disease with (acute) exacerbation (principal); F25.9 Schizoaffective disorder, unspecified; F17.210 Nicotine dependence, cigarettes, uncomplicated; F41.9 Anxiety disorder, unspecified; Z79.899 Other long term (current) drug therapy
CPT/HCPCS: 36415; 71045; 80053; 83880; 85025; 87040; 94640; 94644; 96374; 99285; 99406; J2930; 94645; J3535

== ENCOUNTER 2018-12-25 06:53 | Inpatient (IN) | payer MEDICARE, MEDICAID ==
[~2018-12-25] VITALS: Ht 152.4 cm; Wt 46.3 kg
[~2018-12-25 06:53] MED LIST changes: -ALBU8HFA PO; +CHOL100018 PO; +CIP250 PO; -DSS100 PO; +MULT-1239 PO; -VITAD1000 PO
[2018-12-25 08:34] VITALS: BP 119/78
[2018-12-25] MEDS ORDERED: HALOPERIDOL 5 MG TABLET PO PRN (09:15)
[2018-12-25 10:29] VITALS: BP 133/70
[2018-12-25] MEDS: QUEtiapine FUMARATE 100 MG TABLET PO SCH ×2 (12:15→17:21)
[2018-12-25] MEDS: GABAPENTIN 300 MG CAPSULE PO SCH ×2 (12:15→17:21)
[2018-12-25] MEDS: LITHIUM CARBONATE 300 MG CAPSULE PO SCH ×2 (12:15→17:21)
[2018-12-25 19:04] VITALS: BP 106/62
[2018-12-26 00:19] VITALS: BP 128/86
[2018-12-26] MEDS ORDERED: BENZOCAINE/MENTHOL LOZENGE MM PRN (00:45)
[2018-12-26] MEDS ORDERED: MAGNESIUM HYDROXIDE SUSPENSION 30 ML UDCUP PO PRN (00:45)
[2018-12-26] MEDS ORDERED: MAG HYDROX/AL HYDROX/SIMETH ES 30 ML SUSPENSION UDCUP PO PRN (00:45)
[2018-12-26] MEDS ORDERED: PETROLATUM,WHITE 28 GM JELLY TP PRN (00:45)
[2018-12-26] MEDS ORDERED: LOPERAMIDE HCL 2 MG CAPSULE PO PRN (00:45)
[2018-12-26] MEDS ORDERED: ONDANSETRON HCL 4 MG TABLET PO PRN (00:45)
[2018-12-26] MEDS ORDERED: CloNIDine HCL 0.1 MG TABLET PO PRN (00:45)
[2018-12-26] MEDS: ALBUTEROL SULFATE HFA 90 MCG/PUFF 8 GM INHALER IH PRN ×2 (01:10→09:02)
[2018-12-26] MEDS: LITHIUM CARBONATE 300 MG CAPSULE PO SCH ×3 (07:08→17:15)
[2018-12-26 08:23] LABS: BASOPHILS % (AUTO) 0.4 % (0.0-2.0); HEMATOCRIT 37.3 % (36-46); HEMOGLOBIN 11.9 g/dL (12.0-16.0); LYMPHOCYTES % (AUTO) 22.1 % (22.0-44.0); MEAN CORPUSCULAR HEMOGLOBIN 26.6 pg (26.0-34.0); MEAN CORPUSCULAR VOLUME 83 fL (80-100); MONOCYTES # (AUTO) 0.4 K/uL (0.1-1.0); MONOCYTES % (AUTO) 4.8 % (2.0-9.0); NEUTROPHILS # (AUTO) 6.3 K/uL (1.8-7.7); NEUTROPHILS % (AUTO) 71.7 % (40.0-70.0); PLATELET COUNT (AUTO) 329 K/uL (150-450); RED CELL DISTRIBUTION WIDTH 18.8 % (11.5-14.5)
[2018-12-26 08:32] LABS: HEMOGLOBIN A1C 5.6 % (4.5-6.2)
[2018-12-26 08:36] VITALS: BP 101/61
[2018-12-26] MEDS: IBUPROFEN 600 MG TABLET PO PRN (09:00)
[2018-12-26] MEDS: FLUoxetine HCL 20 MG CAPSULE PO SCH (09:01)
[2018-12-26] MEDS: GABAPENTIN 300 MG CAPSULE PO SCH ×3 (09:01→17:15)
[2018-12-26] MEDS: DOCUSATE SODIUM 100 MG CAPSULE PO SCH (09:02)
[2018-12-26] MEDS: QUEtiapine FUMARATE 100 MG TABLET PO SCH ×3 (09:02→17:15)
[2018-12-26 09:07] LABS: ALANINE AMINOTRANSFERASE 15 U/L (12-78); ALBUMIN 2.7 g/dL (3.4-5.0); ALKALINE PHOSPHATASE 122 U/L (46-116); ANION GAP 8 mmol/L (8-16); ASPARTATE AMINOTRANSFERASE 11 U/L (15-37); BILIRUBIN,TOTAL 0.2 mg/dL (0.1-1.0); CALCIUM, TOTAL 8.6 mg/dL (8.8-10.5); CARBON DIOXIDE 27 mmol/L (22-29); CHLORIDE 109 mmol/L (98-107); CHOL/HDL RATIO 2.3 (3.9-5.7); CHOLESTEROL 134 mg/dL (131-200); CREATININE 0.38 mg/dL (0.60-1.30); FREE T4 (FREE THYROXINE) 0.65 ng/dL (0.76-1.46); GLOMERULAR FILTR. RATE CALC > 60 mL/min (>60); GLUCOSE,RANDOM 85 mg/dL (70-110); HDL CHOLESTEROL 58 mg/dL (40-60); LDL CHOL (CALC.) 50 mg/dL (0-130); POTASSIUM 3.8 mmol/L (3.5-5.1); SODIUM SERUM 144 mmol/L (136-145); THYROID STIMULATING HORMONE 0.54 uIU/mL (0.36-3.74); TOTAL PROTEIN, SERUM 5.5 g/dL (6.4-8.2); TRIGLYCERIDES 130 mg/dL (15-150)
[2018-12-26] MEDS: OMEPRAZOLE 20 MG CAPSULE PO SCH (09:08)
[2018-12-26 09:30] LABS: UREA NITROGEN, BLOOD 8 mg/dL (7-18)
[2018-12-26 16:23] VITALS: BP 110/76
[2018-12-27 05:20] VITALS: BP 139/90
[2018-12-27] MEDS: IBUPROFEN 600 MG TABLET PO PRN ×2 (05:30→20:20)
[2018-12-27] MEDS: ALBUTEROL SULFATE HFA 90 MCG/PUFF 8 GM INHALER IH PRN ×3 (05:30→16:18)
[2018-12-27] MEDS: LITHIUM CARBONATE 300 MG CAPSULE PO SCH ×3 (06:57→16:14)
[2018-12-27 08:24] VITALS: BP 120/75
[2018-12-27] MEDS: DOCUSATE SODIUM 100 MG CAPSULE PO SCH (09:14)
[2018-12-27] MEDS: QUEtiapine FUMARATE 100 MG TABLET PO SCH ×3 (09:14→16:14)
[2018-12-27] MEDS: OMEPRAZOLE 20 MG CAPSULE PO SCH (09:14)
[2018-12-27] MEDS: FLUoxetine HCL 20 MG CAPSULE PO SCH (09:15)
[2018-12-27] MEDS: GABAPENTIN 300 MG CAPSULE PO SCH ×3 (09:15→16:15)
[2018-12-27] MEDS: BUTALBITAL/ACETAMINOPHEN/CAFFEINE 50-325-40 MG TABLET PO PRN ×3 (12:50→22:47)
[2018-12-27 15:38] VITALS: BP 110/80
[2018-12-27 16:08] VITALS: BP 100/62
[2018-12-27 20:20] VITALS: BP 130/80
[2018-12-27 22:47] VITALS: BP 118/78
[2018-12-28 00:45] VITALS: BP 125/86
[2018-12-28] MEDS: ALBUTEROL SULFATE HFA 90 MCG/PUFF 8 GM INHALER IH PRN (00:49)
[2018-12-28] MEDS: ACETAMINOPHEN 325 MG TABLET PO PRN (01:43)
[2018-12-28] MEDS: LORazepam 1 MG TABLET PO PRN (02:34)
[2018-12-28 04:32] VITALS: BP 109/73
[2018-12-28] MEDS: BUTALBITAL/ACETAMINOPHEN/CAFFEINE 50-325-40 MG TABLET PO PRN ×2 (04:49→12:24)
[2018-12-28 06:20] VITALS: BP 112/80
[2018-12-28] MEDS: IBUPROFEN 600 MG TABLET PO PRN (06:22)
[2018-12-28] MEDS: LITHIUM CARBONATE 300 MG CAPSULE PO SCH ×3 (06:23→18:30)
[2018-12-28 08:17] VITALS: BP 109/65
[2018-12-28] MEDS: OMEPRAZOLE 20 MG CAPSULE PO SCH (10:01)
[2018-12-28] MEDS: DOCUSATE SODIUM 100 MG CAPSULE PO SCH (10:01)
[2018-12-28] MEDS: GABAPENTIN 300 MG CAPSULE PO SCH ×3 (10:01→18:30)
[2018-12-28] MEDS: FLUoxetine HCL 20 MG CAPSULE PO SCH (10:01)
[2018-12-28] MEDS: QUEtiapine FUMARATE 100 MG TABLET PO SCH ×3 (10:01→18:30)
[2018-12-28 12:24] VITALS: BP 110/72
[2018-12-28] MEDS ORDERED: KETOROLAC TROMETHAMINE 30 MG/ML VIAL IM ONE (13:00)
[2018-12-28 16:07] VITALS: BP 102/66
[2018-12-29] VITALS (7 sets, daily range): BP systolic 110–130; BP diastolic 68–86
[2018-12-29] MEDS: BUTALBITAL/ACETAMINOPHEN/CAFFEINE 50-325-40 MG TABLET PO PRN ×4 (03:08→21:37)
[2018-12-29] MEDS: ALBUTEROL SULFATE HFA 90 MCG/PUFF 8 GM INHALER IH PRN ×3 (03:08→22:16)
[2018-12-29] MEDS: IBUPROFEN 600 MG TABLET PO PRN ×2 (04:47→14:17)
[2018-12-29] MEDS: LITHIUM CARBONATE 300 MG CAPSULE PO SCH ×4 (06:42→17:17)
[2018-12-29] MEDS: GABAPENTIN 300 MG CAPSULE PO SCH ×3 (08:07→17:17)
[2018-12-29] MEDS: OMEPRAZOLE 20 MG CAPSULE PO SCH (08:07)
[2018-12-29] MEDS: QUEtiapine FUMARATE 100 MG TABLET PO SCH ×3 (08:07→17:17)
[2018-12-29] MEDS: DOCUSATE SODIUM 100 MG CAPSULE PO SCH (08:07)
[2018-12-29] MEDS: FLUoxetine HCL 20 MG CAPSULE PO SCH (08:07)
[2018-12-29] MEDS: IPRATROPIUM BROMIDE 0.5 MG/2.5 ML NEB SOLUTION NEB PRN (18:02)
[2018-12-29] MEDS: LORazepam 1 MG TABLET PO PRN (21:36)
[2018-12-30] VITALS (8 sets, daily range): BP systolic 116–131; BP diastolic 65–86
[2018-12-30] MEDS: IBUPROFEN 600 MG TABLET PO PRN ×3 (01:37→19:17)
[2018-12-30] MEDS: BUTALBITAL/ACETAMINOPHEN/CAFFEINE 50-325-40 MG TABLET PO PRN ×3 (04:33→17:01)
[2018-12-30] MEDS: ALBUTEROL SULFATE HFA 90 MCG/PUFF 8 GM INHALER IH PRN (04:34)
[2018-12-30] MEDS: LITHIUM CARBONATE 300 MG CAPSULE PO SCH ×3 (06:39→16:06)
[2018-12-30] MEDS: OMEPRAZOLE 20 MG CAPSULE PO SCH (08:13)
[2018-12-30] MEDS: QUEtiapine FUMARATE 100 MG TABLET PO SCH ×3 (08:13→16:06)
[2018-12-30] MEDS: GABAPENTIN 300 MG CAPSULE PO SCH ×3 (08:13→16:06)
[2018-12-30] MEDS: FLUoxetine HCL 20 MG CAPSULE PO SCH (08:13)
[2018-12-30] MEDS: DOCUSATE SODIUM 100 MG CAPSULE PO SCH (08:13)
[2018-12-30] MEDS: IPRATROPIUM BROMIDE 0.5 MG/2.5 ML NEB SOLUTION NEB PRN (10:35)
[2018-12-31] VITALS (7 sets, daily range): BP systolic 102–128; BP diastolic 61–80
[2018-12-31] MEDS: BUTALBITAL/ACETAMINOPHEN/CAFFEINE 50-325-40 MG TABLET PO PRN ×3 (01:42→17:23)
[2018-12-31] MEDS: ALBUTEROL SULFATE HFA 90 MCG/PUFF 8 GM INHALER IH PRN ×2 (03:21→13:15)
[2018-12-31] MEDS: IBUPROFEN 600 MG TABLET PO PRN (03:42)
[2018-12-31] MEDS: LITHIUM CARBONATE 300 MG CAPSULE PO SCH ×3 (06:28→16:23)
[2018-12-31] MEDS: ACETAMINOPHEN 325 MG TABLET PO PRN (06:29)
[2018-12-31] MEDS: DOCUSATE SODIUM 100 MG CAPSULE PO SCH (08:46)
[2018-12-31] MEDS: QUEtiapine FUMARATE 100 MG TABLET PO SCH ×3 (08:46→16:23)
[2018-12-31] MEDS: FLUoxetine HCL 20 MG CAPSULE PO SCH (08:46)
[2018-12-31] MEDS: GABAPENTIN 300 MG CAPSULE PO SCH ×3 (08:46→16:23)
[2018-12-31] MEDS: OMEPRAZOLE 20 MG CAPSULE PO SCH (08:46)
[2019-01-01] VITALS: BP 119/85
[2019-01-01] MEDS: BUTALBITAL/ACETAMINOPHEN/CAFFEINE 50-325-40 MG TABLET PO PRN ×4 (00:02→19:34)
[2019-01-01] MEDS: ALBUTEROL SULFATE HFA 90 MCG/PUFF 8 GM INHALER IH PRN ×3 (00:02→12:55)
[2019-01-01] MEDS: LORazepam 1 MG TABLET PO PRN (02:31)
[2019-01-01 06:30] VITALS: BP 121/68
[2019-01-01] MEDS: LITHIUM CARBONATE 300 MG CAPSULE PO SCH ×3 (07:30→17:01)
[2019-01-01] MEDS: GABAPENTIN 300 MG CAPSULE PO SCH ×3 (07:53→17:01)
[2019-01-01] MEDS: OMEPRAZOLE 20 MG CAPSULE PO SCH (07:54)
[2019-01-01] MEDS: DOCUSATE SODIUM 100 MG CAPSULE PO SCH (07:54)
[2019-01-01] MEDS: FLUoxetine HCL 20 MG CAPSULE PO SCH (07:54)
[2019-01-01] MEDS: QUEtiapine FUMARATE 100 MG TABLET PO SCH ×3 (07:54→17:02)
[2019-01-01] MEDS: IBUPROFEN 600 MG TABLET PO PRN ×2 (07:58→15:27)
[2019-01-01 08:25] VITALS: BP 106/74
[2019-01-01 16:09] VITALS: BP 127/73
[2019-01-02 00:10] VITALS: BP 110/60
[2019-01-02] MEDS: IBUPROFEN 600 MG TABLET PO PRN ×2 (00:16→06:18)
[2019-01-02] MEDS: ALBUTEROL SULFATE HFA 90 MCG/PUFF 8 GM INHALER IH PRN (00:16)
[2019-01-02 03:05] VITALS: BP 112/62
[2019-01-02] MEDS: BUTALBITAL/ACETAMINOPHEN/CAFFEINE 50-325-40 MG TABLET PO PRN ×2 (03:13→14:26)
[2019-01-02 06:10] VITALS: BP 116/70
[2019-01-02] MEDS: LITHIUM CARBONATE 300 MG CAPSULE PO SCH ×3 (06:55→17:07)
[2019-01-02] MEDS: GABAPENTIN 300 MG CAPSULE PO SCH ×3 (08:35→17:07)
[2019-01-02] MEDS: QUEtiapine FUMARATE 100 MG TABLET PO SCH ×3 (08:35→17:07)
[2019-01-02] MEDS: DOCUSATE SODIUM 100 MG CAPSULE PO SCH (08:35)
[2019-01-02] MEDS: FLUoxetine HCL 20 MG CAPSULE PO SCH (08:35)
[2019-01-02] MEDS: OMEPRAZOLE 20 MG CAPSULE PO SCH (08:35)
[2019-01-02 08:42] VITALS: BP 127/71
[2019-01-02 16:08] VITALS: BP 105/56
[2019-01-03] VITALS (7 sets, daily range): BP systolic 104–124; BP diastolic 69–78
[2019-01-03] MEDS: IBUPROFEN 600 MG TABLET PO PRN ×3 (02:46→17:59)
[2019-01-03] MEDS: ALBUTEROL SULFATE HFA 90 MCG/PUFF 8 GM INHALER IH PRN (02:47)
[2019-01-03] MEDS: BUTALBITAL/ACETAMINOPHEN/CAFFEINE 50-325-40 MG TABLET PO PRN ×3 (06:56→23:06)
[2019-01-03] MEDS: LITHIUM CARBONATE 300 MG CAPSULE PO SCH ×3 (06:58→16:16)
[2019-01-03] MEDS: DOCUSATE SODIUM 100 MG CAPSULE PO SCH (08:06)
[2019-01-03] MEDS: OMEPRAZOLE 20 MG CAPSULE PO SCH (08:07)
[2019-01-03] MEDS: FLUoxetine HCL 20 MG CAPSULE PO SCH (08:07)
[2019-01-03] MEDS: QUEtiapine FUMARATE 100 MG TABLET PO SCH ×3 (08:07→16:16)
[2019-01-03] MEDS: GABAPENTIN 300 MG CAPSULE PO SCH ×3 (08:07→16:16)
[2019-01-04] VITALS (7 sets, daily range): BP systolic 108–123; BP diastolic 68–78
[2019-01-04] MEDS: LORazepam 1 MG TABLET PO PRN (01:08)
[2019-01-04] MEDS: BUTALBITAL/ACETAMINOPHEN/CAFFEINE 50-325-40 MG TABLET PO PRN ×3 (03:26→15:55)
[2019-01-04] MEDS: IBUPROFEN 600 MG TABLET PO PRN ×2 (04:45→19:21)
[2019-01-04] MEDS: LITHIUM CARBONATE 300 MG CAPSULE PO SCH ×3 (06:38→15:54)
[2019-01-04 07:49] LABS: BAND NEUTROPHILS % (MANUAL) 0 % (0-5)
[2019-01-04 08:00] LABS: HEMATOCRIT 37.1 % (36-46); HEMOGLOBIN 12.1 g/dL (12.0-16.0); MEAN CORPUSCULAR HEMOGLOBIN 27.1 pg (26.0-34.0); MEAN CORPUSCULAR HGB CONC 32.5 G/dL (31.0-37.0); MEAN CORPUSCULAR VOLUME 83 fL (80-100); PLATELET COUNT (AUTO) 348 K/uL (150-450); RED BLOOD CELL COUNT(AUTO) 4.44 MIL/uL (4.00-5.20); RED CELL DISTRIBUTION WIDTH 18.3 % (11.5-14.5)
[2019-01-04] MEDS: GABAPENTIN 300 MG CAPSULE PO SCH ×3 (08:02→15:54)
[2019-01-04 08:19] LABS: ANION GAP 10 mmol/L (8-16); BASOPHILS % (MANUAL) 1 % (0-2); CALCIUM, TOTAL 9.3 mg/dL (8.8-10.5); CARBON DIOXIDE 28 mmol/L (22-29); CHLORIDE 103 mmol/L (98-107); CREATININE 0.56 mg/dL (0.60-1.30); EOSINOPHILS % (MANUAL) 2 % (1-6); GLOMERULAR FILTR. RATE CALC > 60 mL/min (>60); GLUCOSE,RANDOM 99 mg/dL (70-110); LYMPHOCYTES % (MANUAL) 27 % (22-44); MONOCYTES % (MANUAL) 6 % (2-9); PHOSPHORUS 4.6 mg/dL (2.5-4.9); POTASSIUM 5.6 mmol/L (3.5-5.1); SEGMENTED NEUTROPHILS % 64 % (40-70); SODIUM SERUM 141 mmol/L (136-145); UREA NITROGEN, BLOOD 10 mg/dL (7-18)
[2019-01-04] MEDS: QUEtiapine FUMARATE 100 MG TABLET PO SCH ×3 (08:34→15:54)
[2019-01-04] MEDS: FLUoxetine HCL 20 MG CAPSULE PO SCH (08:34)
[2019-01-04] MEDS: DOCUSATE SODIUM 100 MG CAPSULE PO SCH (08:34)
[2019-01-04] MEDS: MULTIVITAMINS WITH MINERALS, THERAPEUTIC TABLET PO SCH (08:34)
[2019-01-04] MEDS: OMEPRAZOLE 20 MG CAPSULE PO SCH (08:34)
[2019-01-04] MEDS: ALBUTEROL SULFATE HFA 90 MCG/PUFF 8 GM INHALER IH PRN (08:43)
[2019-01-04] MEDS ORDERED: SODIUM POLYSTYRENE SULFONATE 15 GM/60 ML SUSPENSION BOTTLE PO ONE (09:15)
[2019-01-05 01:43] VITALS: BP 106/69
[2019-01-05] MEDS: BUTALBITAL/ACETAMINOPHEN/CAFFEINE 50-325-40 MG TABLET PO PRN ×4 (02:03→15:13)
[2019-01-05 05:01] VITALS: BP 110/68
[2019-01-05] MEDS: IBUPROFEN 600 MG TABLET PO PRN ×2 (05:03→18:25)
[2019-01-05] MEDS: LITHIUM CARBONATE 300 MG CAPSULE PO SCH ×3 (06:55→16:11)
[2019-01-05] MEDS: GABAPENTIN 300 MG CAPSULE PO SCH ×3 (08:02→16:11)
[2019-01-05 08:12] VITALS: BP 108/60
[2019-01-05 08:19] LABS: ANION GAP 6 mmol/L (8-16); CALCIUM, TOTAL 8.6 mg/dL (8.8-10.5); CARBON DIOXIDE 30 mmol/L (22-29); CHLORIDE 105 mmol/L (98-107); CREATININE 0.56 mg/dL (0.60-1.30); GLOMERULAR FILTR. RATE CALC > 60 mL/min (>60); GLUCOSE,RANDOM 81 mg/dL (70-110); POTASSIUM 4.7 mmol/L (3.5-5.1); SODIUM SERUM 141 mmol/L (136-145); UREA NITROGEN, BLOOD 10 mg/dL (7-18)
[2019-01-05] MEDS: DOCUSATE SODIUM 100 MG CAPSULE PO SCH (08:33)
[2019-01-05] MEDS: OMEPRAZOLE 20 MG CAPSULE PO SCH (08:33)
[2019-01-05] MEDS: MULTIVITAMINS WITH MINERALS, THERAPEUTIC TABLET PO SCH (08:35)
[2019-01-05] MEDS: FLUoxetine HCL 20 MG CAPSULE PO SCH (08:35)
[2019-01-05] MEDS: QUEtiapine FUMARATE 100 MG TABLET PO SCH ×3 (08:35→16:11)
[2019-01-05] MEDS: ALBUTEROL SULFATE HFA 90 MCG/PUFF 8 GM INHALER IH PRN (10:51)
[2019-01-05 11:12] VITALS: BP 107/75
[2019-01-05 16:07] VITALS: BP 124/76
[2019-01-05 18:25] VITALS: BP 115/78
[2019-01-05] MEDS ORDERED: INFLUENZA VIRUS VACCINE QVS 2019-20 (3YR+)/PF 60 MCG/0.5 ML SYRINGE IM ONE (20:00)
[2019-01-06 04:30] VITALS: BP 124/64
[2019-01-06] MEDS: BUTALBITAL/ACETAMINOPHEN/CAFFEINE 50-325-40 MG TABLET PO PRN ×3 (04:33→16:53)
[2019-01-06] MEDS: IBUPROFEN 600 MG TABLET PO PRN ×2 (05:52→20:00)
[2019-01-06] MEDS: LITHIUM CARBONATE 300 MG CAPSULE PO SCH ×3 (07:07→16:39)
[2019-01-06 08:17] VITALS: BP 117/73
[2019-01-06] MEDS: QUEtiapine FUMARATE 100 MG TABLET PO SCH ×3 (08:56→16:39)
[2019-01-06] MEDS: MULTIVITAMINS WITH MINERALS, THERAPEUTIC TABLET PO SCH (08:56)
[2019-01-06] MEDS: DOCUSATE SODIUM 100 MG CAPSULE PO SCH (08:56)
[2019-01-06] MEDS: GABAPENTIN 300 MG CAPSULE PO SCH ×3 (08:56→16:39)
[2019-01-06] MEDS: OMEPRAZOLE 20 MG CAPSULE PO SCH (08:56)
[2019-01-06] MEDS: FLUoxetine HCL 20 MG CAPSULE PO SCH (08:57)
[2019-01-06 10:05] VITALS: BP 114/68
[2019-01-06 16:05] VITALS: BP 113/66
[2019-01-06 20:00] VITALS: BP 115/66
[2019-01-06] MEDS: ZOLPIDEM TARTRATE 10 MG TABLET PO PRN (20:28)
[2019-01-07 03:57] VITALS: BP 120/81
[2019-01-07] MEDS: BUTALBITAL/ACETAMINOPHEN/CAFFEINE 50-325-40 MG TABLET PO PRN ×2 (04:04→12:54)
[2019-01-07 06:05] VITALS: BP 118/7
[2019-01-07] MEDS: IBUPROFEN 600 MG TABLET PO PRN ×2 (06:38→16:10)
[2019-01-07] MEDS: ALBUTEROL SULFATE HFA 90 MCG/PUFF 8 GM INHALER IH PRN ×2 (06:38→12:54)
[2019-01-07] MEDS: LITHIUM CARBONATE 300 MG CAPSULE PO SCH ×3 (06:56→16:08)
[2019-01-07] MEDS: GABAPENTIN 300 MG CAPSULE PO SCH ×4 (08:15→16:09)
[2019-01-07 08:33] VITALS: BP 104/61
[2019-01-07] MEDS: FLUoxetine HCL 20 MG CAPSULE PO SCH (09:19)
[2019-01-07] MEDS: DOCUSATE SODIUM 100 MG CAPSULE PO SCH (09:19)
[2019-01-07] MEDS: MULTIVITAMINS WITH MINERALS, THERAPEUTIC TABLET PO SCH (09:20)
[2019-01-07] MEDS: OMEPRAZOLE 20 MG CAPSULE PO SCH (09:20)
[2019-01-07] MEDS: QUEtiapine FUMARATE 100 MG TABLET PO SCH ×4 (09:20→16:09)
[2019-01-07 12:54] VITALS: BP 115/67
[2019-01-07 16:10] VITALS: BP 113/63
[2019-01-07 16:17] VITALS: BP 113/66
[2019-01-08] VITALS: BP 111/69
[2019-01-08] MEDS: BUTALBITAL/ACETAMINOPHEN/CAFFEINE 50-325-40 MG TABLET PO PRN ×2 (00:04→06:41)
[2019-01-08] MEDS: ZOLPIDEM TARTRATE 10 MG TABLET PO PRN (00:04)
[2019-01-08] MEDS: IBUPROFEN 600 MG TABLET PO PRN ×2 (04:26→11:26)
[2019-01-08] MEDS: LITHIUM CARBONATE 300 MG CAPSULE PO SCH ×2 (07:06→11:26)
[2019-01-08] MEDS: GABAPENTIN 300 MG CAPSULE PO SCH ×2 (08:41→13:01)
[2019-01-08] MEDS: OMEPRAZOLE 20 MG CAPSULE PO SCH (08:42)
[2019-01-08] MEDS: DOCUSATE SODIUM 100 MG CAPSULE PO SCH (08:42)
[2019-01-08] MEDS: FLUoxetine HCL 20 MG CAPSULE PO SCH (08:42)
[2019-01-08] MEDS: QUEtiapine FUMARATE 100 MG TABLET PO SCH ×2 (08:42→13:01)
[2019-01-08] MEDS: MULTIVITAMINS WITH MINERALS, THERAPEUTIC TABLET PO SCH (08:42)
[2019-01-08 09:17] VITALS: BP 113/66
== END 2019-01-08 13:45 | disposition home or self-care (01) | DRG 885 ==
LOC: B2S 10:16
PROVIDERS: ADMIT Psychiatry & Neurology Psychiatry; ATTEND Psychiatry & Neurology Psychiatry
PROC: 3E0234Z Introduction of Serum, Toxoid and Vaccine into Muscle, Percutaneous Approach (ICD-10-PCS; principal; 2019-01-06)
DX: F20.0 Paranoid schizophrenia (principal); R45.851 Suicidal ideations; E44.0 Moderate protein-calorie malnutrition; Z68.1 Body mass index [BMI] 19.9 or less, adult; E03.9 Hypothyroidism, unspecified; F17.200 Nicotine dependence, unspecified, uncomplicated; G47.00 Insomnia, unspecified; I10 Essential (primary) hypertension; J44.9 Chronic obstructive pulmonary disease, unspecified; K21.9 Gastro-esophageal reflux disease without esophagitis; N95.1 Menopausal and female climacteric states; Z90.710 Acquired absence of both cervix and uterus; Z23 Encounter for immunization
CPT/HCPCS: 83036; 83735; 84100; 84439; 84443; 85007; 90686; J1885; J3535

== ENCOUNTER 2020-11-03 13:38 | Inpatient (IN) | payer MEDICARE, OTHER ==
[~2020-11-03] VITALS: Ht 152.4 cm; Wt 38.6 kg
[~2020-11-03 13:38] MED LIST changes: -CHOL100018 PO; -CIP250 PO; +GABA-1181 PO; -GABA-531 PO; +MONT10TA32 PO; -OMEP20 PO; +PRED20 PO
[2020-11-03] MEDS ORDERED: SODIUM CHLORIDE 0.9% 500 ML IV ONE (15:00)
[2020-11-03 15:12] LABS: BASOPHILS % (AUTO) 0.8 % (0.0-2.0); EOSINOPHILS % (AUTO) 0.3 % (1.0-6.0); HEMATOCRIT 45.2 % (36-46); HEMOGLOBIN 14.6 g/dL (12.0-16.0); LYMPHOCYTES # (AUTO) 2.5 K/uL (1.0-4.8); LYMPHOCYTES % (AUTO) 21.7 % (22.0-44.0); MEAN CORPUSCULAR HEMOGLOBIN 27.5 pg (26.0-34.0); MEAN CORPUSCULAR HGB CONC 32.4 G/dL (31.0-37.0); MEAN CORPUSCULAR VOLUME 85 fL (80-100); MONOCYTES # (AUTO) 0.9 K/uL (0.1-1.0); MONOCYTES % (AUTO) 7.4 % (2.0-9.0); NEUTROPHILS # (AUTO) 8.1 K/uL (1.8-7.7); NEUTROPHILS % (AUTO) 69.8 % (40.0-70.0); PLATELET COUNT (AUTO) 365 K/uL (150-450); RED BLOOD CELL COUNT(AUTO) 5.32 MIL/uL (4.00-5.20); RED CELL DISTRIBUTION WIDTH 15.7 % (11.5-14.5)
[2020-11-03] MEDS ORDERED: SODIUM CHLORIDE 0.9% 1,100 ML IV ONE (15:15)
[2020-11-03 15:28] LABS: LITHIUM < 0.20 mmol/L (0.60-1.20)
[2020-11-03 15:36] LABS: SALICYLATE 2.9 mg/dL (2.8-20.0)
[2020-11-03] MEDS ORDERED: SODIUM CHLORIDE 0.9% 250 ML IV ONE (15:37)
[2020-11-03 15:42] LABS: ALANINE AMINOTRANSFERASE 14 U/L (12-78); ALBUMIN 2.8 g/dL (3.4-5.0); ALKALINE PHOSPHATASE 142 U/L (46-116); ANION GAP 8 mmol/L (8-16); ASPARTATE AMINOTRANSFERASE 11 U/L (15-37); BILIRUBIN,TOTAL 0.5 mg/dL (0.1-1.0); CARBON DIOXIDE 32 mmol/L (22-29); CHLORIDE 110 mmol/L (98-107); CREATINE KINASE, TOTAL ONLY 22 U/L (26-192); CREATININE 0.49 mg/dL (0.60-1.30); GLOMERULAR FILTR. RATE CALC > 60 mL/min (>60); GLUCOSE,RANDOM 90 mg/dL (70-110); SODIUM SERUM 150 mmol/L (136-145); UREA NITROGEN, BLOOD 8 mg/dL (7-18)
[2020-11-03 15:43] LABS: POTASSIUM 2.9 mmol/L (3.5-5.1)
[2020-11-03 15:48] LABS: ACETAMINOPHEN < 2 mcg/mL (10-30)
[2020-11-03] MEDS ORDERED: WATER IV ONE (16:00)
[2020-11-03] MEDS ORDERED: POTASSIUM CHLORIDE 20 MEQ ER TABLET PO PRN ×2 (16:00→20:45)
[2020-11-03] MEDS ORDERED: TRIMETH IV ONE (16:00)
[2020-11-03] MEDS ORDERED: DEXTROSE IV ONE (16:00)
[2020-11-03] MEDS ORDERED: SULFAMETHOX IV ONE (16:00)
[2020-11-03 16:10] LABS: APPEARANCE,URINE CLEAR (CLEAR); GLUCOSE, URINE (UA) NEGATIVE (NEGATIVE); KETONES,URINE NEGATIVE (NEGATIVE); LEUKOCYTE ESTERASE ,URINE LARGE (NEGATIVE); NITRATE,URINE NEGATIVE (NEGATIVE); OCCULT BLOOD,URINE LARGE (NEGATIVE); PH,URINE 6.5 (5.0-8.0); PROTEIN,URINE SEE CONFIRM (NEGATIVE)
[2020-11-03 16:12] LABS: BILIRUBIN,URINE PRELIM. POSITIVE (NEGATIVE)
[2020-11-03] MEDS: POTASSIUM CHL 10 MEQ/WATER 50 ML IV PRN ×3 (16:12→21:43)
[2020-11-03 16:14] LABS: AMPHET/METH SCREEN,URINE NEGATIVE (NEGATIVE); BARBITURATE SCREEN, URINE NEGATIVE (NEGATIVE); BENZODIAZEPINES SCREEN,URINE NEGATIVE (NEGATIVE); CANNABINOID SCREEN,URINE NEGATIVE (NEGATIVE); COCAINE SCREEN,URINE NEGATIVE (NEGATIVE); METHADONE SCREEN, URINE NEGATIVE (NEGATIVE); OPIATE SCREEN,URINE NEGATIVE (NEGATIVE); PHENCYCLIDINE SCREEN,URINE NEGATIVE (NEGATIVE)
[2020-11-03] MEDS ORDERED: 0.9% SODIUM CHLORIDE 10 ML SYRINGE IVP PRN (16:15)
[2020-11-03] MEDS ORDERED: ACETAMINOPHEN 325 MG TABLET PO PRN (16:15)
[2020-11-03] MEDS ORDERED: ONDANSETRON HCL 4 MG/2 ML VIAL IVP PRN ×2 (16:15→21:15)
[2020-11-03] MEDS ORDERED: ALBUTEROL SULFATE HFA 90 MCG/PUFF 8 GM INHALER IH ONE (16:15)
[2020-11-03] MEDS ORDERED: MORPHINE SULFATE 2 MG/ML SYRINGE IVP ONE (16:15)
[2020-11-03 16:20] LABS: COVID AG,FIA SOURCE NASOPHARYNGEAL
[2020-11-03 16:40] LABS: SULFOSALICYLIC ACID,URINE 2+ (Negative)
[2020-11-03 16:41] LABS: WBC,URINE >100 /HPF (0-5)
[2020-11-03 16:42] LABS: BACTERIA,URINE Moderate /HPF (None Seen); SQUAMOUS EPITHELIAL CELL,UR Moderate /LPF (None Seen)
[2020-11-03 16:46] LABS: PHOSPHORUS 3.4 mg/dL (2.5-4.9)
[2020-11-03 16:51] LABS: MAGNESIUM 1.8 mg/dL (1.80-2.40)
[2020-11-03 17:41] VITALS: BP 109/75
[2020-11-03 20:03] VITALS: BP 95/59
[2020-11-03] MEDS ORDERED: POTASSIUM CHL 10 MEQ/WATER 50 ML IV PRN (20:45)
[2020-11-03] MEDS ORDERED: BISACODYL 10 MG RECTAL RECTAL SUPPOSITORY PR PRN (21:15)
[2020-11-03] MEDS: HEPARIN SODIUM,PORCINE 5,000 UNITS/ML VIAL SQ SCH (21:15)
[2020-11-03] MEDS ORDERED: ZOLPIDEM TARTRATE 5 MG TABLET PO PRN (21:15)
[2020-11-03] MEDS ORDERED: MAGNESIUM HYDROXIDE SUSPENSION 30 ML UDCUP PO PRN (21:15)
[2020-11-03] MEDS ORDERED: IPRATROPIUM BROMIDE 0.5 MG/2.5 ML NEB SOLUTION NEB PRN (21:15)
[2020-11-03] MEDS ORDERED: ALBUTEROL SULFATE 2.5 MG/0.5 ML NEB SOLUTION NEB PRN (21:15)
[2020-11-03] MEDS ORDERED: IBUPROFEN 600 MG TABLET PO PRN (21:30)
[2020-11-03] MEDS: CefTRIAXone 1 GM/DEXTROSE 50 ML IV SCH (22:19)
[2020-11-03] MEDS: DEXTROSE 5%-WATER 1,000 ML IV SCH (22:19)
[2020-11-03 23:25] LABS: ANION GAP 8 mmol/L (8-16); CALCIUM, TOTAL 7.9 mg/dL (8.8-10.5); CARBON DIOXIDE 27 mmol/L (22-29); CHLORIDE 112 mmol/L (98-107); CREATININE 0.26 mg/dL (0.60-1.30); GLOMERULAR FILTR. RATE CALC > 60 mL/min (>60); GLUCOSE,RANDOM 106 mg/dL (70-110); POTASSIUM 3.1 mmol/L (3.5-5.1); SODIUM SERUM 147 mmol/L (136-145); UREA NITROGEN, BLOOD 6 mg/dL (7-18)
[2020-11-03 23:30] LABS: PHOSPHORUS 3.5 mg/dL (2.5-4.9)
[2020-11-04] VITALS (7 sets, daily range): BP systolic 94–127; BP diastolic 60–80
[2020-11-04] MEDS ORDERED: MAGNESIUM SULFATE 3 GM in DEXTROSE 5%-WATER 100 ML IV ONE (01:00)
[2020-11-04] MEDS: CALCIUM CARBONATE 500 MG TABLET PO ONE ×3 (03:50→09:20)
[2020-11-04] MEDS: ACETAMINOPHEN 325 MG TABLET PO PRN ×2 (05:00→09:16)
[2020-11-04 05:57] LABS: BASOPHILS % (AUTO) 0.9 % (0.0-2.0); EOSINOPHILS % (AUTO) 0.8 % (1.0-6.0); HEMATOCRIT 38.1 % (36-46); HEMOGLOBIN 12.4 g/dL (12.0-16.0); LYMPHOCYTES # (AUTO) 1.9 K/uL (1.0-4.8); LYMPHOCYTES % (AUTO) 22.5 % (22.0-44.0); MEAN CORPUSCULAR HEMOGLOBIN 27.8 pg (26.0-34.0); MEAN CORPUSCULAR HGB CONC 32.5 G/dL (31.0-37.0); MEAN CORPUSCULAR VOLUME 86 fL (80-100); MONOCYTES # (AUTO) 0.7 K/uL (0.1-1.0); MONOCYTES % (AUTO) 8.2 % (2.0-9.0); NEUTROPHILS # (AUTO) 5.6 K/uL (1.8-7.7); NEUTROPHILS % (AUTO) 67.6 % (40.0-70.0); PLATELET COUNT (AUTO) 315 K/uL (150-450); RED BLOOD CELL COUNT(AUTO) 4.44 MIL/uL (4.00-5.20); RED CELL DISTRIBUTION WIDTH 15.3 % (11.5-14.5)
[2020-11-04 06:16] LABS: HEMOGLOBIN A1C 5.5 % (3.8-5.6)
[2020-11-04 07:02] LABS: ALANINE AMINOTRANSFERASE 21 U/L (12-78); ALBUMIN 2.4 g/dL (3.4-5.0); ALKALINE PHOSPHATASE 143 U/L (46-116); ANION GAP 9 mmol/L (8-16); ASPARTATE AMINOTRANSFERASE 22 U/L (15-37); BILIRUBIN,TOTAL 0.3 mg/dL (0.1-1.0); CALCIUM, TOTAL 8.2 mg/dL (8.8-10.5); CARBON DIOXIDE 26 mmol/L (22-29); CHLORIDE 114 mmol/L (98-107); CHOL/HDL RATIO 4.7 (3.9-5.7); CHOLESTEROL 182 mg/dL (131-200); CREATINE KINASE, TOTAL ONLY 25 U/L (26-192); FREE T4 (FREE THYROXINE) 0.95 ng/dL (0.76-1.46); GLOMERULAR FILTR. RATE CALC > 60 mL/min (>60); GLUCOSE,RANDOM 98 mg/dL (70-110); HDL CHOLESTEROL 39 mg/dL (40-60); LDL CHOL (CALC.) 121 mg/dL (0-130); SODIUM SERUM 149 mmol/L (136-145); THYROID STIMULATING HORMONE 1.15 uIU/mL (0.36-3.74); TRIGLYCERIDES 111 mg/dL (15-150); UREA NITROGEN, BLOOD 5 mg/dL (7-18)
[2020-11-04 07:11] LABS: TROPONIN I 0.03 ng/mL (0.00-0.05)
[2020-11-04] MEDS: FLUTICASONE/VILANTEROL 200-25 MCG/INH INHALER [14] IH SCH (08:17)
[2020-11-04] MEDS: PANTOPRAZOLE SODIUM 40 MG DR TABLET PO SCH (08:17)
[2020-11-04] MEDS: HEPARIN SODIUM,PORCINE 5,000 UNITS/ML VIAL SQ SCH ×3 (08:18→20:20)
[2020-11-04] MEDS ORDERED: POTASSIUM CHLORIDE 20 MEQ ER TABLET PO ONE ×2 (08:30→14:15)
[2020-11-04] MEDS: POTASSIUM CHL 10 MEQ/WATER 50 ML IV SCH ×2 (08:30→09:30)
[2020-11-04] MEDS: DEXTROSE 5%-WATER 1,000 ML IV SCH (17:30)
[2020-11-04] MEDS: CefTRIAXone 1 GM/DEXTROSE 50 ML IV SCH (20:05)
[2020-11-05] MEDS: DEXTROSE 5%-WATER 1,000 ML IV SCH ×2 (04:23→15:53)
[2020-11-05 04:30] VITALS: BP 101/66
[2020-11-05 07:35] VITALS: BP 94/64
[2020-11-05] MEDS: PANTOPRAZOLE SODIUM 40 MG DR TABLET PO SCH (08:23)
[2020-11-05] MEDS: HEPARIN SODIUM,PORCINE 5,000 UNITS/ML VIAL SQ SCH ×2 (08:24→20:34)
[2020-11-05] MEDS: FLUTICASONE/VILANTEROL 200-25 MCG/INH INHALER [14] IH SCH (08:24)
[2020-11-05] MEDS: ACETAMINOPHEN 325 MG TABLET PO PRN (09:30)
[2020-11-05 12:10] VITALS: BP 92/58
[2020-11-05 16:03] VITALS: BP 106/59
[2020-11-05 19:44] VITALS: BP 98/48
[2020-11-05] MEDS: CefTRIAXone 1 GM/DEXTROSE 50 ML IV SCH (21:46)
[2020-11-06] VITALS (7 sets, daily range): BP systolic 98–137; BP diastolic 48–88
[2020-11-06] MEDS: DEXTROSE 5%-WATER 1,000 ML IV SCH ×2 (06:24→21:04)
[2020-11-06 06:56] LABS: ANION GAP 7 mmol/L (8-16); CALCIUM, TOTAL 8.3 mg/dL (8.8-10.5); CARBON DIOXIDE 27 mmol/L (22-29); CHLORIDE 107 mmol/L (98-107); CREATININE 0.27 mg/dL (0.60-1.30); GLOMERULAR FILTR. RATE CALC > 60 mL/min (>60); GLUCOSE,RANDOM 89 mg/dL (70-110); PHOSPHORUS 3.4 mg/dL (2.5-4.9); POTASSIUM 4.1 mmol/L (3.5-5.1); SODIUM SERUM 141 mmol/L (136-145); UREA NITROGEN, BLOOD 5 mg/dL (7-18)
[2020-11-06] MEDS: HEPARIN SODIUM,PORCINE 5,000 UNITS/ML VIAL SQ SCH ×3 (08:30→21:00)
[2020-11-06] MEDS: PANTOPRAZOLE SODIUM 40 MG DR TABLET PO SCH (08:30)
[2020-11-06] MEDS: FLUTICASONE/VILANTEROL 200-25 MCG/INH INHALER [14] IH SCH (08:31)
[2020-11-06] MEDS: QUEtiapine FUMARATE 100 MG TABLET PO SCH ×2 (16:02→23:30)
[2020-11-06] MEDS: GABAPENTIN 300 MG CAPSULE PO SCH ×2 (16:02→23:30)
[2020-11-06] MEDS: CefTRIAXone 1 GM/DEXTROSE 50 ML IV SCH (23:31)
[2020-11-07 05:00] VITALS: BP 100/75
[2020-11-07 07:02] LABS: ANION GAP 6 mmol/L (8-16); CARBON DIOXIDE 27 mmol/L (22-29); CHLORIDE 107 mmol/L (98-107); GLOMERULAR FILTR. RATE CALC > 60 mL/min (>60); GLUCOSE,RANDOM 96 mg/dL (70-110); POTASSIUM 3.8 mmol/L (3.5-5.1); SODIUM SERUM 140 mmol/L (136-145); UREA NITROGEN, BLOOD 8 mg/dL (7-18)
[2020-11-07] MEDS: PANTOPRAZOLE SODIUM 40 MG DR TABLET PO SCH (08:32)
[2020-11-07] MEDS: GABAPENTIN 300 MG CAPSULE PO SCH (08:32)
[2020-11-07] MEDS: FLUTICASONE/VILANTEROL 200-25 MCG/INH INHALER [14] IH SCH (08:32)
[2020-11-07] MEDS: QUEtiapine FUMARATE 100 MG TABLET PO SCH (08:33)
[2020-11-07] MEDS: HEPARIN SODIUM,PORCINE 5,000 UNITS/ML VIAL SQ SCH (08:37)
[2020-11-07 08:55] VITALS: BP 94/66
[2020-11-07] MEDS ORDERED: FLUoxetine HCL 20 MG CAPSULE PO SCH (09:00)
[2020-11-07] MEDS ORDERED: MONTELUKAST SODIUM 10 MG TABLET PO SCH (09:00)
[2020-11-07] MEDS ORDERED: MULTIVITAMINS WITH MINERALS, THERAPEUTIC TABLET PO SCH (09:00)
[2020-11-07] MEDS ORDERED: CEFTR1IV IV (10:33)
[2020-11-07] MEDS ORDERED: FLUT1BLS IH (10:36)
[2020-11-07] MEDS ORDERED: HEPA500018 SQ (10:37)
[2020-11-07] MEDS ORDERED: ACET-2247 PO (10:38)
[2020-11-07] MEDS ORDERED: PANT40VI14 IVP (10:38)
[2020-11-07] MEDS ORDERED: BISA10SU11 PR (10:39)
[2020-11-07] MEDS ORDERED: AUD NEB (10:39)
[2020-11-07] MEDS ORDERED: IPRATROPIUM NEB (10:43)
[2020-11-07] MEDS ORDERED: MOM30 PO (10:46)
[2020-11-07] MEDS ORDERED: ONDA-104 PO (10:47)
[2020-11-07] MEDS ORDERED: ZOLP-280 PO (10:48)
[2020-11-07] MEDS: DEXTROSE 5%-WATER 1,000 ML IV SCH (11:33)
[2020-11-07 12:05] VITALS: BP 95/58
[2020-11-07 12:13] VITALS: BP 95/58
== END 2020-11-07 13:25 | DRG 919 ==
LOC: EMS 13:42 → 5S 16:54
PROVIDERS: ADMIT Internal Medicine Geriatric Medicine; ATTEND Internal Medicine Geriatric Medicine
DX: M96.89 Other intraoperative and postprocedural complications and disorders of the musculoskeletal system (principal); E43 Unspecified severe protein-calorie malnutrition; N39.0 Urinary tract infection, site not specified; E87.0 Hyperosmolality and hypernatremia; J44.1 Chronic obstructive pulmonary disease with (acute) exacerbation; E87.1 Hypo-osmolality and hyponatremia; Z68.1 Body mass index [BMI] 19.9 or less, adult; E86.0 Dehydration; Z20.822 Contact with and (suspected) exposure to COVID-19; E87.6 Hypokalemia; F11.10 Opioid abuse, uncomplicated; M81.0 Age-related osteoporosis without current pathological fracture; F41.9 Anxiety disorder, unspecified; G43.909 Migraine, unspecified, not intractable, without status migrainosus; F31.9 Bipolar disorder, unspecified; F17.210 Nicotine dependence, cigarettes, uncomplicated; G89.29 Other chronic pain; R62.7 Adult failure to thrive; F25.9 Schizoaffective disorder, unspecified; T38.0X5A Adverse effect of glucocorticoids and synthetic analogues, initial encounter; Z91.19 Patient's noncompliance with other medical treatment and regimen; Y92.89 Other specified places as the place of occurrence of the external cause; Z99.81 Dependence on supplemental oxygen; M16.12 Unilateral primary osteoarthritis, left hip; X58.XXXA Exposure to other specified factors, initial encounter; Y93.89 Activity, other specified; Y99.8 Other external cause status; Y83.8 Other surgical procedures as the cause of abnormal reaction of the patient, or of later complication, without mention of misadventure at the time of the procedure; Y82.8 Other medical devices associated with adverse incidents
CPT/HCPCS: 71045; 73502; 80048; 80053; 80061; 80178; 81001; 81002; 82140; 82550; 83036; 83605; 83735; 83880; 84100; 84132; 84439; 84443; 84484; 85025; 87040; 87086; 93005; 99291; A9575; G0480; G0481; J0696; J1644; J2270; J3475; J3480; J3490; J3535; J7030; J7050; J7060; 36415-L1; 36415-TC

== ENCOUNTER 2022-05-13 22:35 | Inpatient (IN) | payer MEDICARE, OTHER ==
[~2022-05-13] VITALS: Ht 154.9 cm; Wt 40.0 kg
[2022-05-13 22:35] VITALS: BP 96/60
[~2022-05-13 22:35] MED LIST changes: +ACET-2247 PO; +AUD NEB; +BISA10SU11 PR; +FLUO-177 PO; -FLUO-191 PO; +FLUT1BLS IH; +IPRNEB IH; -LITH300C3 PO; +MAGN-169 PO; +MONT-40 PO; -MONT10TA32 PO; +ONDA-104 PO; +PANT40VI14 IVP; -PRED20 PO; +ZOLP-280 PO
[2022-05-13] MEDS ORDERED: ONDANSETRON HCL 4 MG/2 ML VIAL IVP PRN (23:30)
[2022-05-13] MEDS ORDERED: ALBUTEROL SULFATE 2.5 MG/0.5 ML NEB SOLUTION NEB PRN (23:30)
[2022-05-13] MEDS ORDERED: ZOLPIDEM TARTRATE 5 MG TABLET PO PRN (23:30)
[2022-05-13] MEDS ORDERED: MORPHINE SULFATE 2 MG/ML SYRINGE IVP PRN (23:30)
[2022-05-13] MEDS ORDERED: BISACODYL 10 MG RECTAL RECTAL SUPPOSITORY PR PRN (23:30)
[2022-05-13] MEDS ORDERED: MAGNESIUM HYDROXIDE SUSPENSION 30 ML UDCUP PO PRN (23:30)
[2022-05-13] MEDS ORDERED: IPRATROPIUM BROMIDE 0.5 MG/2.5 ML NEB SOLUTION NEB PRN (23:30)
[2022-05-14] MEDS: HYDROCODONE/ACETAMINOPHEN 5-325 MG TABLET PO PRN ×2 (00:21→06:42)
[2022-05-14] MEDS: MethylPREDNISolone SOD SUCC 125 MG/2 ML VIAL IVP SCH ×4 (00:24→18:16)
[2022-05-14] MEDS: HEPARIN SODIUM,PORCINE 5,000 UNITS/ML VIAL SQ SCH ×3 (00:24→16:31)
[2022-05-14] MEDS: ALBUTEROL SULFATE 2.5 MG/0.5 ML NEB SOLUTION NEB SCH ×4 (03:11→19:57)
[2022-05-14] MEDS: IPRATROPIUM BROMIDE 0.5 MG/2.5 ML NEB SOLUTION NEB SCH ×4 (03:12→19:57)
[2022-05-14 03:58] VITALS: BP 95/57
[2022-05-14 06:21] LABS: BASOPHILS % (AUTO) 0.2 % (0.0-2.0); EOSINOPHILS % (AUTO) 0 % (1.0-6.0); HEMOGLOBIN 12.7 g/dL (12.0-16.0); LYMPHOCYTES # (AUTO) 0.9 K/uL (1.0-4.8); LYMPHOCYTES % (AUTO) 3.3 % (22.0-44.0); MEAN CORPUSCULAR HEMOGLOBIN 25.1 pg (26.0-34.0); MEAN CORPUSCULAR HGB CONC 31.8 G/dL (31.0-37.0); MEAN CORPUSCULAR VOLUME 79 fL (80-100); MONOCYTES # (AUTO) 1.7 K/uL (0.1-1.0); MONOCYTES % (AUTO) 6.3 % (2.0-9.0); PLATELET COUNT (AUTO) 336 K/uL (150-450); RED BLOOD CELL COUNT(AUTO) 5.07 MIL/uL (4.00-5.20); RED CELL DISTRIBUTION WIDTH 19.5 % (11.5-14.5)
[2022-05-14 06:34] LABS: ANION GAP 11 mmol/L (8-16); CALCIUM, TOTAL 8.6 mg/dL (8.8-10.5); CARBON DIOXIDE 28 mmol/L (22-29); CHLORIDE 98 mmol/L (98-107); CREATININE 0.63 mg/dL (0.60-1.30); GLOMERULAR FILTR. RATE CALC > 60 mL/min (>60); GLUCOSE,RANDOM 156 mg/dL (70-110); POTASSIUM 4.1 mmol/L (3.5-5.1); SODIUM SERUM 137 mmol/L (136-145); UREA NITROGEN, BLOOD 17 mg/dL (7-18)
[2022-05-14 07:14] LABS: NEUTROPHILS % (AUTO) 90.2 % (40.0-70.0)
[2022-05-14 08:08] VITALS: BP 97/70
[2022-05-14] MEDS: MONTELUKAST SODIUM 10 MG TABLET PO SCH (08:31)
[2022-05-14] MEDS: DOCUSATE SODIUM 100 MG CAPSULE PO SCH ×2 (08:31→20:21)
[2022-05-14] MEDS: FLUTICASONE/VILANTEROL 200-25 MCG/INH INHALER [14] IH SCH (08:31)
[2022-05-14] MEDS: GuaiFENesin SR 600 MG ER TABLET PO SCH ×2 (08:31→20:24)
[2022-05-14] MEDS: BENZONATATE 100 MG CAPSULE PO SCH ×3 (08:32→20:23)
[2022-05-14] MEDS: PANTOPRAZOLE SODIUM 40 MG DR TABLET PO SCH (08:32)
[2022-05-14] MEDS ORDERED: QUEtiapine FUMARATE 100 MG TABLET PO SCH (09:00)
[2022-05-14] MEDS ORDERED: GABAPENTIN 300 MG CAPSULE PO SCH (09:00)
[2022-05-14] MEDS ORDERED: BENZONATATE 100 MG CAPSULE PO SCH (09:00)
[2022-05-14] MEDS ORDERED: *CLINICAL-LEVOFLOXACIN IVPB DOSING CLINICAL ONE (11:00)
[2022-05-14] MEDS ORDERED: SODIUM CHLORIDE 0.9% 500 ML IV ONE (12:03)
[2022-05-14] MEDS ORDERED: LEVOFLOXACIN 500 MG/D5% WATER 100 ML IV ONE (13:00)
[2022-05-14 13:06] LABS: ABG BASE EXCESS 5.8 mmol/L (-2.0-3.0); ABG CARBOXYHEMOGLOBIN 1.3 % (0.0-1.5); ABG HCO3 28.9 mmol/L (22.0-26.0); ABG METHEMOGLOBIN 0.3 % (0.0-1.5); ABG OXYGEN CONTENT 15.3 mL/dL (15.0-23.0); ABG OXYGEN SATURATION 88.9 % (95.0-98.0); ABG OXYHEMOGLOBIN 87.5 % (94.0-100.0); ABG PCO2 46 mmHg (35-45); ABG PH 7.432 (7.35-7.450); ABG TOTAL HEMOGLOBIN 12.4 G/dL (12.0-18.0); SITE, BLOOD GAS RT BRACHIAL; SOURCE, BLOOD GAS ARTERIAL; TEMPERATURE, FAHRENHEIT, BG 99.6 FAHREN (96.0-98.6)
[2022-05-14] MEDS ORDERED: SODIUM CHLORIDE 0.9% 250 ML IV ONE (15:30)
[2022-05-14] MEDS ORDERED: SODIUM CHLORIDE 0.9% 1,000 ML IV SCH (15:30)
[2022-05-14 15:57] VITALS: BP 89/59
[2022-05-14 17:12] VITALS: BP 90/57
[2022-05-14] MEDS: QUEtiapine FUMARATE 25 MG TABLET PO SCH (20:22)
[2022-05-14] MEDS: GABAPENTIN 300 MG CAPSULE PO SCH (20:23)
[2022-05-14] MEDS: TraMADol HCL 50 MG TABLET PO PRN ×3 (20:31→20:46)
[2022-05-14 20:47] VITALS: BP 90/59
[2022-05-15] MEDS: HEPARIN SODIUM,PORCINE 5,000 UNITS/ML VIAL SQ SCH ×4 (00:16→21:04)
[2022-05-15] MEDS: MethylPREDNISolone SOD SUCC 125 MG/2 ML VIAL IVP SCH ×2 (00:21→06:28)
[2022-05-15 01:40] VITALS: BP 94/57
[2022-05-15] MEDS: ALBUTEROL SULFATE 2.5 MG/0.5 ML NEB SOLUTION NEB SCH ×4 (02:03→20:22)
[2022-05-15] MEDS: IPRATROPIUM BROMIDE 0.5 MG/2.5 ML NEB SOLUTION NEB SCH ×4 (02:04→20:22)
[2022-05-15] MEDS: TraMADol HCL 50 MG TABLET PO PRN ×2 (02:26→08:21)
[2022-05-15] MEDS: ACETAMINOPHEN 325 MG TABLET PO PRN ×2 (06:23→14:12)
[2022-05-15 07:27] LABS: EOSINOPHILS % (AUTO) 0 % (1.0-6.0); HEMATOCRIT 30.2 % (36-46); HEMOGLOBIN 9.6 g/dL (12.0-16.0); LYMPHOCYTES # (AUTO) 0.5 K/uL (1.0-4.8); LYMPHOCYTES % (AUTO) 2.7 % (22.0-44.0); MEAN CORPUSCULAR HEMOGLOBIN 25.2 pg (26.0-34.0); MEAN CORPUSCULAR HGB CONC 31.7 G/dL (31.0-37.0); MEAN CORPUSCULAR VOLUME 79 fL (80-100); MONOCYTES # (AUTO) 1.3 K/uL (0.1-1.0); MONOCYTES % (AUTO) 6.9 % (2.0-9.0); NEUTROPHILS # (AUTO) 16.7 K/uL (1.8-7.7); PLATELET COUNT (AUTO) 254 K/uL (150-450); RED BLOOD CELL COUNT(AUTO) 3.81 MIL/uL (4.00-5.20); RED CELL DISTRIBUTION WIDTH 19.2 % (11.5-14.5)
[2022-05-15 07:31] LABS: NEUTROPHILS % (AUTO) 90.4 % (40.0-70.0)
[2022-05-15 07:56] LABS: ANION GAP 6 mmol/L (8-16); CALCIUM, TOTAL 8.4 mg/dL (8.8-10.5); CARBON DIOXIDE 30 mmol/L (22-29); CHLORIDE 103 mmol/L (98-107); CREATININE 0.48 mg/dL (0.60-1.30); GLOMERULAR FILTR. RATE CALC > 60 mL/min (>60); GLUCOSE,RANDOM 185 mg/dL (70-110); POTASSIUM 3.7 mmol/L (3.5-5.1); SODIUM SERUM 139 mmol/L (136-145); UREA NITROGEN, BLOOD 10 mg/dL (7-18)
[2022-05-15] MEDS: QUEtiapine FUMARATE 25 MG TABLET PO SCH ×2 (08:20→21:03)
[2022-05-15] MEDS: DOCUSATE SODIUM 100 MG CAPSULE PO SCH ×2 (08:20→21:01)
[2022-05-15] MEDS: GABAPENTIN 300 MG CAPSULE PO SCH ×2 (08:21→21:02)
[2022-05-15] MEDS: GuaiFENesin SR 600 MG ER TABLET PO SCH ×2 (08:21→21:02)
[2022-05-15] MEDS: FLUTICASONE/VILANTEROL 200-25 MCG/INH INHALER [14] IH SCH (08:21)
[2022-05-15] MEDS: PANTOPRAZOLE SODIUM 40 MG DR TABLET PO SCH (08:21)
[2022-05-15] MEDS: BENZONATATE 100 MG CAPSULE PO SCH ×3 (08:21→21:04)
[2022-05-15] MEDS: MONTELUKAST SODIUM 10 MG TABLET PO SCH (08:22)
[2022-05-15 08:35] VITALS: BP 101/57
[2022-05-15] MEDS: MULTIVITAMINS WITH MINERALS, THERAPEUTIC TABLET PO SCH (12:13)
[2022-05-15] MEDS: FAMOTIDINE 20 MG TABLET PO SCH ×2 (12:13→21:02)
[2022-05-15] MEDS: PredniSONE 20 MG TABLET PO SCH (12:13)
[2022-05-15] MEDS: LEVOFLOXACIN 250 MG/D5% WATER 50 ML IV SCH (12:16)
[2022-05-15 15:35] VITALS: BP 106/66
[2022-05-15 20:00] VITALS: BP 91/52
[2022-05-16] MEDS: ALBUTEROL SULFATE 2.5 MG/0.5 ML NEB SOLUTION NEB SCH ×4 (01:50→19:51)
[2022-05-16] MEDS: IPRATROPIUM BROMIDE 0.5 MG/2.5 ML NEB SOLUTION NEB SCH ×4 (01:50→19:51)
[2022-05-16 04:24] VITALS: BP 146/104
[2022-05-16] MEDS: TraMADol HCL 50 MG TABLET PO PRN (04:24)
[2022-05-16] MEDS: ACETAMINOPHEN 325 MG TABLET PO PRN ×2 (04:57→20:48)
[2022-05-16] MEDS ORDERED: LEVALBUTEROL HCL 0.63 MG/3 ML NEB SOLUTION NEB ONE (05:15)
[2022-05-16] MEDS ORDERED: LEVALBUTEROL HCL 1.25 MG/0.5 ML NEB SOLUTION NEB ONE (05:36)
[2022-05-16 08:12] LABS: ANION GAP 6 mmol/L (8-16); CALCIUM, TOTAL 8.6 mg/dL (8.8-10.5); CARBON DIOXIDE 32 mmol/L (22-29); CHLORIDE 103 mmol/L (98-107); CREATININE 0.49 mg/dL (0.60-1.30); GLOMERULAR FILTR. RATE CALC > 60 mL/min (>60); GLUCOSE,RANDOM 88 mg/dL (70-110); POTASSIUM 3.5 mmol/L (3.5-5.1); SODIUM SERUM 141 mmol/L (136-145); UREA NITROGEN, BLOOD 9 mg/dL (7-18)
[2022-05-16 08:14] LABS: HEMATOCRIT 33.1 % (36-46); HEMOGLOBIN 10.6 g/dL (12.0-16.0); MEAN CORPUSCULAR HEMOGLOBIN 25.4 pg (26.0-34.0); MEAN CORPUSCULAR VOLUME 79 fL (80-100); PLATELET COUNT (AUTO) 269 K/uL (150-450); RED BLOOD CELL COUNT(AUTO) 4.17 MIL/uL (4.00-5.20); RED CELL DISTRIBUTION WIDTH 19.6 % (11.5-14.5)
[2022-05-16 08:43] VITALS: BP 93/63
[2022-05-16 08:57] LABS: BAND NEUTROPHILS % (MANUAL) 7 % (0-5); LYMPHOCYTES % (MANUAL) 8 % (22-44); MONOCYTES % (MANUAL) 6 % (2-9); SEGMENTED NEUTROPHILS % 79 % (40-70)
[2022-05-16] MEDS: PANTOPRAZOLE SODIUM 40 MG DR TABLET PO SCH (09:00)
[2022-05-16] MEDS: HEPARIN SODIUM,PORCINE 5,000 UNITS/ML VIAL SQ SCH ×2 (09:54→20:47)
[2022-05-16 10:13] VITALS: BP 103/65
[2022-05-16] MEDS: FAMOTIDINE 20 MG TABLET PO SCH ×2 (11:43→20:46)
[2022-05-16] MEDS: PredniSONE 20 MG TABLET PO SCH (11:44)
[2022-05-16] MEDS: GuaiFENesin SR 600 MG ER TABLET PO SCH ×2 (11:44→20:45)
[2022-05-16] MEDS: FLUTICASONE/VILANTEROL 200-25 MCG/INH INHALER [14] IH SCH (11:44)
[2022-05-16] MEDS: MULTIVITAMINS WITH MINERALS, THERAPEUTIC TABLET PO SCH (11:44)
[2022-05-16] MEDS: MONTELUKAST SODIUM 10 MG TABLET PO SCH (11:44)
[2022-05-16] MEDS: BENZONATATE 100 MG CAPSULE PO SCH ×3 (11:44→20:47)
[2022-05-16] MEDS: DOCUSATE SODIUM 100 MG CAPSULE PO SCH ×2 (11:44→20:45)
[2022-05-16] MEDS: GABAPENTIN 300 MG CAPSULE PO SCH ×2 (11:44→20:46)
[2022-05-16] MEDS: QUEtiapine FUMARATE 25 MG TABLET PO SCH ×2 (11:45→20:46)
[2022-05-16 12:05] VITALS: BP 102/62
[2022-05-16] MEDS: LEVOFLOXACIN 250 MG/D5% WATER 50 ML IV SCH (14:53)
[2022-05-16] MEDS: FLUoxetine HCL 20 MG CAPSULE PO SCH (14:53)
[2022-05-16 17:42] VITALS: BP 91/62
[2022-05-16 19:27] VITALS: BP 90/53
[2022-05-17] MEDS: IPRATROPIUM BROMIDE 0.5 MG/2.5 ML NEB SOLUTION NEB SCH ×4 (01:55→19:21)
[2022-05-17] MEDS: ALBUTEROL SULFATE 2.5 MG/0.5 ML NEB SOLUTION NEB SCH ×4 (01:55→19:21)
[2022-05-17 03:52] VITALS: BP 91/60
[2022-05-17] MEDS: TraMADol HCL 50 MG TABLET PO PRN ×2 (03:52→13:26)
[2022-05-17 07:49] LABS: ANION GAP 4 mmol/L (8-16); CALCIUM, TOTAL 8.9 mg/dL (8.8-10.5); CARBON DIOXIDE 35 mmol/L (22-29); CHLORIDE 103 mmol/L (98-107); CREATININE 0.37 mg/dL (0.60-1.30); GLOMERULAR FILTR. RATE CALC > 60 mL/min (>60); GLUCOSE,RANDOM 77 mg/dL (70-110); POTASSIUM 3.9 mmol/L (3.5-5.1); SODIUM SERUM 142 mmol/L (136-145); UREA NITROGEN, BLOOD 11 mg/dL (7-18)
[2022-05-17 07:51] LABS: BASOPHILS % (AUTO) 0.1 % (0.0-2.0); EOSINOPHILS % (AUTO) 0 % (1.0-6.0); HEMATOCRIT 33.7 % (36-46); HEMOGLOBIN 10.6 g/dL (12.0-16.0); LYMPHOCYTES # (AUTO) 0.9 K/uL (1.0-4.8); LYMPHOCYTES % (AUTO) 5.7 % (22.0-44.0); MEAN CORPUSCULAR HEMOGLOBIN 25.2 pg (26.0-34.0); MEAN CORPUSCULAR HGB CONC 31.3 G/dL (31.0-37.0); MEAN CORPUSCULAR VOLUME 80 fL (80-100); MONOCYTES % (AUTO) 5.8 % (2.0-9.0); NEUTROPHILS # (AUTO) 14.8 K/uL (1.8-7.7); PLATELET COUNT (AUTO) 241 K/uL (150-450); RED BLOOD CELL COUNT(AUTO) 4.19 MIL/uL (4.00-5.20); RED CELL DISTRIBUTION WIDTH 20.4 % (11.5-14.5)
[2022-05-17] MEDS: PANTOPRAZOLE SODIUM 40 MG DR TABLET PO SCH (08:03)
[2022-05-17] MEDS: MONTELUKAST SODIUM 10 MG TABLET PO SCH (08:04)
[2022-05-17] MEDS: FAMOTIDINE 20 MG TABLET PO SCH ×2 (08:04→21:16)
[2022-05-17] MEDS: GuaiFENesin SR 600 MG ER TABLET PO SCH ×2 (08:04→21:15)
[2022-05-17] MEDS: DOCUSATE SODIUM 100 MG CAPSULE PO SCH ×2 (08:04→21:16)
[2022-05-17] MEDS: FLUoxetine HCL 20 MG CAPSULE PO SCH (08:04)
[2022-05-17] MEDS: GABAPENTIN 300 MG CAPSULE PO SCH ×2 (08:04→21:16)
[2022-05-17] MEDS: PredniSONE 20 MG TABLET PO SCH (08:04)
[2022-05-17] MEDS: BENZONATATE 100 MG CAPSULE PO SCH ×3 (08:04→21:17)
[2022-05-17] MEDS: MULTIVITAMINS WITH MINERALS, THERAPEUTIC TABLET PO SCH (08:05)
[2022-05-17] MEDS: QUEtiapine FUMARATE 25 MG TABLET PO SCH ×2 (08:05→21:17)
[2022-05-17] MEDS: HEPARIN SODIUM,PORCINE 5,000 UNITS/ML VIAL SQ SCH ×2 (08:07→23:33)
[2022-05-17] MEDS: FLUTICASONE/VILANTEROL 200-25 MCG/INH INHALER [14] IH SCH (08:09)
[2022-05-17 08:15] LABS: NEUTROPHILS % (AUTO) 88.4 % (40.0-70.0)
[2022-05-17 08:21] VITALS: BP 100/58
[2022-05-17 11:28] LABS: ABG BASE EXCESS 6.2 mmol/L (-2.0-3.0); ABG CARBOXYHEMOGLOBIN 0.9 % (0.0-1.5); ABG HCO3 29.5 mmol/L (22.0-26.0); ABG METHEMOGLOBIN 0.1 % (0.0-1.5); ABG OXYGEN CONTENT 13.8 mL/dL (15.0-23.0); ABG OXYHEMOGLOBIN 82.3 % (94.0-100.0); ABG PCO2 39 mmHg (35-45); ABG PH 7.495 (7.35-7.450); ABG TOTAL HEMOGLOBIN 11.9 G/dL (12.0-18.0); PO2, ARTERIAL BG 44.4 mmHg (75.0-83.0); SOURCE, BLOOD GAS ARTERIAL
[2022-05-17 11:31] LABS: ABG A-A DIFF O2 58.3 mmHg (10-20.0); ABG OXYGEN SATURATION 83.1 % (95.0-98.0); O2 DEVICE,BLOOD GAS ROOM AIR (ROOM AIR)
[2022-05-17 11:34] LABS: SITE, BLOOD GAS RT RADIAL
[2022-05-17] MEDS: LEVOFLOXACIN 250 MG/D5% WATER 50 ML IV SCH (13:04)
[2022-05-17 20:23] VITALS: BP 94/62
[2022-05-18] MEDS: IPRATROPIUM BROMIDE 0.5 MG/2.5 ML NEB SOLUTION NEB SCH ×4 (01:46→20:21)
[2022-05-18] MEDS: ALBUTEROL SULFATE 2.5 MG/0.5 ML NEB SOLUTION NEB SCH ×4 (01:46→20:21)
[2022-05-18 04:00] VITALS: BP 92/63
[2022-05-18] MEDS: FLUTICASONE/VILANTEROL 200-25 MCG/INH INHALER [14] IH SCH (08:33)
[2022-05-18] MEDS: TraMADol HCL 50 MG TABLET PO PRN (08:34)
[2022-05-18] MEDS: MULTIVITAMINS WITH MINERALS, THERAPEUTIC TABLET PO SCH (08:34)
[2022-05-18] MEDS: QUEtiapine FUMARATE 25 MG TABLET PO SCH ×2 (08:35→20:46)
[2022-05-18] MEDS: GuaiFENesin SR 600 MG ER TABLET PO SCH ×2 (08:35→20:45)
[2022-05-18] MEDS: MONTELUKAST SODIUM 10 MG TABLET PO SCH (08:35)
[2022-05-18] MEDS: PANTOPRAZOLE SODIUM 40 MG DR TABLET PO SCH (08:35)
[2022-05-18] MEDS: FAMOTIDINE 20 MG TABLET PO SCH ×2 (08:35→20:45)
[2022-05-18] MEDS: PredniSONE 20 MG TABLET PO SCH (08:35)
[2022-05-18] MEDS: FLUoxetine HCL 20 MG CAPSULE PO SCH (08:35)
[2022-05-18] MEDS: DOCUSATE SODIUM 100 MG CAPSULE PO SCH ×2 (08:35→20:45)
[2022-05-18] MEDS: GABAPENTIN 300 MG CAPSULE PO SCH ×2 (08:35→20:45)
[2022-05-18] MEDS: ACETAMINOPHEN 325 MG TABLET PO PRN (08:36)
[2022-05-18] MEDS: HEPARIN SODIUM,PORCINE 5,000 UNITS/ML VIAL SQ SCH ×2 (08:37→20:54)
[2022-05-18] MEDS: BENZONATATE 100 MG CAPSULE PO SCH ×4 (08:39→20:45)
[2022-05-18 09:59] VITALS: BP 103/70
[2022-05-18] MEDS: LEVOFLOXACIN 250 MG/D5% WATER 50 ML IV SCH (13:34)
[2022-05-18] MEDS: CLINDAMYCIN 600 MG/D5% WATER 50 ML IV SCH ×2 (15:04→23:13)
[2022-05-18 15:30] VITALS: BP 86/73
[2022-05-18 19:00] LABS: APPEARANCE,URINE CLEAR (CLEAR); BILIRUBIN,URINE NEGATIVE (NEGATIVE); GLUCOSE, URINE (UA) NEGATIVE (NEGATIVE); KETONES,URINE NEGATIVE (NEGATIVE); LEUKOCYTE ESTERASE ,URINE TRACE (NEGATIVE); NITRATE,URINE NEGATIVE (NEGATIVE); OCCULT BLOOD,URINE NEGATIVE (NEGATIVE); PH,URINE 6.5 (5.0-8.0); PROTEIN,URINE NEGATIVE (NEGATIVE); SPECIFIC GRAVITIY, URINE 1.008 (1.003-1.030); UROBILINOGEN,URINE <=1.0 mg/dL (<=1.0)
[2022-05-18 19:31] LABS: BACTERIA,URINE None Seen /HPF (None Seen); RBC,URINE None Seen /HPF (0-2)
[2022-05-18 19:34] LABS: SQUAMOUS EPITHELIAL CELL,UR Rare /LPF (None Seen)
[2022-05-18 20:05] VITALS: BP 87/57
[2022-05-19 01:50] VITALS: BP 89/59
[2022-05-19] MEDS: ACETAMINOPHEN 325 MG TABLET PO PRN (01:55)
[2022-05-19] MEDS: ALBUTEROL SULFATE 2.5 MG/0.5 ML NEB SOLUTION NEB SCH ×4 (02:00→20:20)
[2022-05-19] MEDS: IPRATROPIUM BROMIDE 0.5 MG/2.5 ML NEB SOLUTION NEB SCH ×4 (02:00→20:20)
[2022-05-19 04:40] VITALS: BP 80/41
[2022-05-19] MEDS ORDERED: SODIUM CHLORIDE 0.9% 500 ML IV ONE ×2 (04:59→12:34)
[2022-05-19] MEDS ORDERED: SODIUM CHLORIDE 0.9% 250 ML IV ONE ×2 (05:15→10:15)
[2022-05-19] MEDS: CLINDAMYCIN 600 MG/D5% WATER 50 ML IV SCH ×3 (06:14→21:48)
[2022-05-19 06:15] VITALS: BP 82/50
[2022-05-19 07:42] VITALS: BP 81/47
[2022-05-19] MEDS: QUEtiapine FUMARATE 25 MG TABLET PO SCH ×2 (09:37→20:55)
[2022-05-19] MEDS: MULTIVITAMINS WITH MINERALS, THERAPEUTIC TABLET PO SCH (09:37)
[2022-05-19] MEDS: PredniSONE 20 MG TABLET PO SCH (09:37)
[2022-05-19] MEDS: FLUTICASONE/VILANTEROL 200-25 MCG/INH INHALER [14] IH SCH (09:37)
[2022-05-19] MEDS: BENZONATATE 100 MG CAPSULE PO SCH ×3 (09:38→20:54)
[2022-05-19] MEDS: MONTELUKAST SODIUM 10 MG TABLET PO SCH (09:38)
[2022-05-19] MEDS: GuaiFENesin SR 600 MG ER TABLET PO SCH ×2 (09:38→20:54)
[2022-05-19] MEDS: DOCUSATE SODIUM 100 MG CAPSULE PO SCH ×2 (09:38→20:54)
[2022-05-19] MEDS: GABAPENTIN 300 MG CAPSULE PO SCH ×2 (09:38→20:54)
[2022-05-19] MEDS: FLUoxetine HCL 20 MG CAPSULE PO SCH (09:39)
[2022-05-19] MEDS: HEPARIN SODIUM,PORCINE 5,000 UNITS/ML VIAL SQ SCH ×2 (09:39→20:55)
[2022-05-19] MEDS: PANTOPRAZOLE SODIUM 40 MG DR TABLET PO SCH (09:39)
[2022-05-19] MEDS: FAMOTIDINE 20 MG TABLET PO SCH ×2 (09:39→20:55)
[2022-05-19] MEDS: LEVOFLOXACIN 250 MG/D5% WATER 50 ML IV SCH (12:36)
[2022-05-19 16:12] VITALS: BP 93/56
[2022-05-19 19:40] VITALS: BP 98/59
[2022-05-20] MEDS: ALBUTEROL SULFATE 2.5 MG/0.5 ML NEB SOLUTION NEB SCH ×4 (01:51→20:33)
[2022-05-20] MEDS: IPRATROPIUM BROMIDE 0.5 MG/2.5 ML NEB SOLUTION NEB SCH ×4 (01:51→20:33)
[2022-05-20 04:16] VITALS: BP 104/56
[2022-05-20] MEDS: ACETAMINOPHEN 325 MG TABLET PO PRN ×2 (05:01→08:09)
[2022-05-20] MEDS: CLINDAMYCIN 600 MG/D5% WATER 50 ML IV SCH ×3 (05:01→21:55)
[2022-05-20] MEDS: QUEtiapine FUMARATE 25 MG TABLET PO SCH ×2 (08:08→20:46)
[2022-05-20] MEDS: BENZONATATE 100 MG CAPSULE PO SCH ×3 (08:08→20:46)
[2022-05-20] MEDS: GABAPENTIN 300 MG CAPSULE PO SCH ×2 (08:08→20:46)
[2022-05-20] MEDS: MONTELUKAST SODIUM 10 MG TABLET PO SCH (08:08)
[2022-05-20] MEDS: PredniSONE 20 MG TABLET PO SCH (08:08)
[2022-05-20] MEDS: GuaiFENesin SR 600 MG ER TABLET PO SCH ×2 (08:09→20:46)
[2022-05-20] MEDS: MULTIVITAMINS WITH MINERALS, THERAPEUTIC TABLET PO SCH (08:09)
[2022-05-20] MEDS: PANTOPRAZOLE SODIUM 40 MG DR TABLET PO SCH (08:10)
[2022-05-20] MEDS: HEPARIN SODIUM,PORCINE 5,000 UNITS/ML VIAL SQ SCH ×2 (08:10→20:46)
[2022-05-20] MEDS: MEGESTROL ACETATE 40 MG TABLET PO SCH (08:10)
[2022-05-20] MEDS: DOCUSATE SODIUM 100 MG CAPSULE PO SCH ×2 (08:10→20:46)
[2022-05-20] MEDS: FLUTICASONE/VILANTEROL 200-25 MCG/INH INHALER [14] IH SCH (08:11)
[2022-05-20] MEDS: FAMOTIDINE 20 MG TABLET PO SCH ×2 (08:11→20:46)
[2022-05-20] MEDS: FLUoxetine HCL 20 MG CAPSULE PO SCH (08:18)
[2022-05-20 08:46] VITALS: BP 95/52
[2022-05-20 13:53] LABS: BASOPHILS % (AUTO) 0.3 % (0.0-2.0); EOSINOPHILS % (AUTO) 0 % (1.0-6.0); HEMATOCRIT 30.3 % (36-46); HEMOGLOBIN 9.5 g/dL (12.0-16.0); LYMPHOCYTES # (AUTO) 0.6 K/uL (1.0-4.8); LYMPHOCYTES % (AUTO) 3.1 % (22.0-44.0); MEAN CORPUSCULAR HGB CONC 31.3 G/dL (31.0-37.0); MEAN CORPUSCULAR VOLUME 80 fL (80-100); MONOCYTES # (AUTO) 0.3 K/uL (0.1-1.0); MONOCYTES % (AUTO) 1.6 % (2.0-9.0); NEUTROPHILS # (AUTO) 18.5 K/uL (1.8-7.7); PLATELET COUNT (AUTO) 317 K/uL (150-450); RED BLOOD CELL COUNT(AUTO) 3.79 MIL/uL (4.00-5.20); RED CELL DISTRIBUTION WIDTH 20.5 % (11.5-14.5)
[2022-05-20] MEDS: LEVOFLOXACIN 250 MG/D5% WATER 50 ML IV SCH (14:29)
[2022-05-20 16:01] VITALS: BP 93/58
[2022-05-20] MEDS: DOXYCYCLINE HYCLATE 100 MG TABLET PO SCH (20:47)
[2022-05-20] MEDS ORDERED: SODIUM CHLORIDE 0.9% 500 ML IV ONE (20:56)
[2022-05-20 21:14] VITALS: BP 98/56
[2022-05-21] MEDS: IPRATROPIUM BROMIDE 0.5 MG/2.5 ML NEB SOLUTION NEB SCH ×4 (02:28→20:45)
[2022-05-21] MEDS: ALBUTEROL SULFATE 2.5 MG/0.5 ML NEB SOLUTION NEB SCH ×4 (02:28→20:45)
[2022-05-21 05:05] VITALS: BP 115/73
[2022-05-21] MEDS: CLINDAMYCIN 600 MG/D5% WATER 50 ML IV SCH ×3 (05:30→22:02)
[2022-05-21 07:57] LABS: BASOPHILS % (AUTO) 0.1 % (0.0-2.0); EOSINOPHILS % (AUTO) 0.2 % (1.0-6.0); HEMOGLOBIN 9.9 g/dL (12.0-16.0); LYMPHOCYTES # (AUTO) 1.7 K/uL (1.0-4.8); LYMPHOCYTES % (AUTO) 9.6 % (22.0-44.0); MEAN CORPUSCULAR HEMOGLOBIN 25.2 pg (26.0-34.0); MEAN CORPUSCULAR HGB CONC 31.8 G/dL (31.0-37.0); MEAN CORPUSCULAR VOLUME 79 fL (80-100); MONOCYTES # (AUTO) 0.9 K/uL (0.1-1.0); MONOCYTES % (AUTO) 4.7 % (2.0-9.0); NEUTROPHILS # (AUTO) 15.5 K/uL (1.8-7.7); PLATELET COUNT (AUTO) 366 K/uL (150-450); RED BLOOD CELL COUNT(AUTO) 3.91 MIL/uL (4.00-5.20); RED CELL DISTRIBUTION WIDTH 20.1 % (11.5-14.5)
[2022-05-21 08:10] VITALS: BP_SYST 108; BP_SYST 117; BP_DIAS 68; BP_DIAS 77
[2022-05-21 08:27] LABS: NEUTROPHILS % (AUTO) 85.4 % (40.0-70.0)
[2022-05-21] MEDS: GABAPENTIN 300 MG CAPSULE PO SCH ×2 (08:43→21:00)
[2022-05-21] MEDS: FLUoxetine HCL 20 MG CAPSULE PO SCH (08:43)
[2022-05-21] MEDS: MEGESTROL ACETATE 40 MG TABLET PO SCH (08:43)
[2022-05-21] MEDS: FAMOTIDINE 20 MG TABLET PO SCH ×2 (08:43→21:00)
[2022-05-21] MEDS: QUEtiapine FUMARATE 25 MG TABLET PO SCH ×2 (08:43→21:00)
[2022-05-21] MEDS: DOXYCYCLINE HYCLATE 100 MG TABLET PO SCH ×2 (08:43→21:00)
[2022-05-21] MEDS: PANTOPRAZOLE SODIUM 40 MG DR TABLET PO SCH (08:43)
[2022-05-21] MEDS: MONTELUKAST SODIUM 10 MG TABLET PO SCH (08:44)
[2022-05-21] MEDS: BENZONATATE 100 MG CAPSULE PO SCH ×3 (08:44→21:00)
[2022-05-21] MEDS: GuaiFENesin SR 600 MG ER TABLET PO SCH ×2 (08:44→21:00)
[2022-05-21] MEDS: HEPARIN SODIUM,PORCINE 5,000 UNITS/ML VIAL SQ SCH ×2 (08:44→21:00)
[2022-05-21] MEDS: DOCUSATE SODIUM 100 MG CAPSULE PO SCH ×2 (08:44→21:00)
[2022-05-21] MEDS: MULTIVITAMINS WITH MINERALS, THERAPEUTIC TABLET PO SCH (08:44)
[2022-05-21] MEDS: PredniSONE 20 MG TABLET PO SCH (08:44)
[2022-05-21] MEDS: FLUTICASONE/VILANTEROL 200-25 MCG/INH INHALER [14] IH SCH (08:45)
[2022-05-21] MEDS: LEVOFLOXACIN 250 MG/D5% WATER 50 ML IV SCH (12:54)
[2022-05-21 15:16] VITALS: BP 114/72
[2022-05-22] MEDS: ALBUTEROL SULFATE 2.5 MG/0.5 ML NEB SOLUTION NEB SCH ×4 (02:00→20:00)
[2022-05-22] MEDS: IPRATROPIUM BROMIDE 0.5 MG/2.5 ML NEB SOLUTION NEB SCH ×4 (02:00→20:00)
[2022-05-22 05:00] VITALS: BP 102/58
[2022-05-22] MEDS: CLINDAMYCIN 600 MG/D5% WATER 50 ML IV SCH (05:34)
[2022-05-22] MEDS: PredniSONE 20 MG TABLET PO SCH (08:28)
[2022-05-22] MEDS: BENZONATATE 100 MG CAPSULE PO SCH ×4 (08:28→21:03)
[2022-05-22] MEDS: GABAPENTIN 300 MG CAPSULE PO SCH ×2 (08:28→21:03)
[2022-05-22] MEDS: GuaiFENesin SR 600 MG ER TABLET PO SCH ×2 (08:29→21:03)
[2022-05-22] MEDS: DOCUSATE SODIUM 100 MG CAPSULE PO SCH ×2 (08:29→21:03)
[2022-05-22] MEDS: PANTOPRAZOLE SODIUM 40 MG DR TABLET PO SCH (08:29)
[2022-05-22] MEDS: FAMOTIDINE 20 MG TABLET PO SCH ×2 (08:29→21:03)
[2022-05-22] MEDS: MONTELUKAST SODIUM 10 MG TABLET PO SCH (08:31)
[2022-05-22] MEDS: DOXYCYCLINE HYCLATE 100 MG TABLET PO SCH ×2 (08:31→21:03)
[2022-05-22] MEDS: FLUoxetine HCL 20 MG CAPSULE PO SCH (08:31)
[2022-05-22] MEDS: QUEtiapine FUMARATE 25 MG TABLET PO SCH ×2 (08:31→21:03)
[2022-05-22] MEDS: MEGESTROL ACETATE 40 MG TABLET PO SCH (08:32)
[2022-05-22] MEDS: MULTIVITAMINS WITH MINERALS, THERAPEUTIC TABLET PO SCH (08:32)
[2022-05-22] MEDS: HEPARIN SODIUM,PORCINE 5,000 UNITS/ML VIAL SQ SCH ×2 (08:33→21:04)
[2022-05-22] MEDS: FLUTICASONE/VILANTEROL 200-25 MCG/INH INHALER [14] IH SCH (08:34)
[2022-05-22 10:34] VITALS: BP 114/72
[2022-05-22 11:40] VITALS: BP 120/68
[2022-05-22] MEDS ORDERED: *CLINICAL-LEVOFLOXACIN ORAL DOSING CLINICAL ONE (13:00)
[2022-05-22] MEDS: LEVOFLOXACIN 250 MG TABLET PO SCH (14:19)
[2022-05-22 14:36] LABS: BASOPHILS % (AUTO) 0.1 % (0.0-2.0); EOSINOPHILS % (AUTO) 0.1 % (1.0-6.0); HEMATOCRIT 32.2 % (36-46); HEMOGLOBIN 10.3 g/dL (12.0-16.0); LYMPHOCYTES # (AUTO) 0.9 K/uL (1.0-4.8); LYMPHOCYTES % (AUTO) 4.4 % (22.0-44.0); MEAN CORPUSCULAR HEMOGLOBIN 25.3 pg (26.0-34.0); MEAN CORPUSCULAR HGB CONC 32.1 G/dL (31.0-37.0); MEAN CORPUSCULAR VOLUME 79 fL (80-100); MONOCYTES # (AUTO) 0.5 K/uL (0.1-1.0); MONOCYTES % (AUTO) 2.4 % (2.0-9.0); PLATELET COUNT (AUTO) 445 K/uL (150-450); RED BLOOD CELL COUNT(AUTO) 4.08 MIL/uL (4.00-5.20)
[2022-05-22] MEDS: CLINDAMYCIN HCL 300 MG CAPSULE PO SCH ×2 (14:52→23:04)
[2022-05-22 18:40] VITALS: BP 111/70
[2022-05-22 20:20] VITALS: BP 90/63
[2022-05-23] MEDS: ALBUTEROL SULFATE 2.5 MG/0.5 ML NEB SOLUTION NEB SCH ×4 (02:00→20:00)
[2022-05-23] MEDS: IPRATROPIUM BROMIDE 0.5 MG/2.5 ML NEB SOLUTION NEB SCH ×4 (02:00→20:00)
[2022-05-23 07:58] VITALS: BP 121/65
[2022-05-23] MEDS: MONTELUKAST SODIUM 10 MG TABLET PO SCH (08:36)
[2022-05-23] MEDS: CLINDAMYCIN HCL 300 MG CAPSULE PO SCH ×3 (08:36→23:35)
[2022-05-23] MEDS: FLUTICASONE/VILANTEROL 200-25 MCG/INH INHALER [14] IH SCH (08:36)
[2022-05-23] MEDS: MULTIVITAMINS WITH MINERALS, THERAPEUTIC TABLET PO SCH (08:36)
[2022-05-23] MEDS: GABAPENTIN 300 MG CAPSULE PO SCH ×2 (08:36→20:51)
[2022-05-23] MEDS: BENZONATATE 100 MG CAPSULE PO SCH ×3 (08:36→20:51)
[2022-05-23] MEDS: PANTOPRAZOLE SODIUM 40 MG DR TABLET PO SCH (08:36)
[2022-05-23] MEDS: FAMOTIDINE 20 MG TABLET PO SCH ×2 (08:38→20:51)
[2022-05-23] MEDS: GuaiFENesin SR 600 MG ER TABLET PO SCH ×2 (08:38→20:51)
[2022-05-23] MEDS: PredniSONE 20 MG TABLET PO SCH (08:38)
[2022-05-23] MEDS: DOCUSATE SODIUM 100 MG CAPSULE PO SCH ×2 (08:38→20:51)
[2022-05-23] MEDS: FLUoxetine HCL 20 MG CAPSULE PO SCH (08:42)
[2022-05-23] MEDS: LEVOFLOXACIN 250 MG TABLET PO SCH (08:42)
[2022-05-23] MEDS: DOXYCYCLINE HYCLATE 100 MG TABLET PO SCH ×2 (08:42→22:28)
[2022-05-23] MEDS: QUEtiapine FUMARATE 25 MG TABLET PO SCH ×2 (08:42→20:51)
[2022-05-23] MEDS: MEGESTROL ACETATE 40 MG TABLET PO SCH (08:42)
[2022-05-23] MEDS: HEPARIN SODIUM,PORCINE 5,000 UNITS/ML VIAL SQ SCH ×2 (08:43→22:28)
[2022-05-23 15:17] VITALS: BP 92/51
[2022-05-23 23:35] VITALS: BP 101/54
[2022-05-24] MEDS: IPRATROPIUM BROMIDE 0.5 MG/2.5 ML NEB SOLUTION NEB SCH ×4 (02:00→19:46)
[2022-05-24] MEDS: ALBUTEROL SULFATE 2.5 MG/0.5 ML NEB SOLUTION NEB SCH ×4 (02:00→19:46)
[2022-05-24 05:27] VITALS: BP 130/52
[2022-05-24] MEDS: HEPARIN SODIUM,PORCINE 5,000 UNITS/ML VIAL SQ SCH ×2 (09:00→20:31)
[2022-05-24] MEDS: GABAPENTIN 300 MG CAPSULE PO SCH ×2 (09:27→20:26)
[2022-05-24] MEDS: GuaiFENesin SR 600 MG ER TABLET PO SCH ×2 (09:27→20:26)
[2022-05-24] MEDS: PredniSONE 20 MG TABLET PO SCH (09:27)
[2022-05-24] MEDS: CLINDAMYCIN HCL 300 MG CAPSULE PO SCH ×2 (09:27→16:06)
[2022-05-24] MEDS: DOCUSATE SODIUM 100 MG CAPSULE PO SCH ×2 (09:27→20:26)
[2022-05-24] MEDS: MEGESTROL ACETATE 40 MG TABLET PO SCH (09:27)
[2022-05-24] MEDS: FLUTICASONE/VILANTEROL 200-25 MCG/INH INHALER [14] IH SCH (09:27)
[2022-05-24] MEDS: LEVOFLOXACIN 250 MG TABLET PO SCH (09:27)
[2022-05-24] MEDS: FAMOTIDINE 20 MG TABLET PO SCH ×2 (09:27→20:26)
[2022-05-24] MEDS: FLUoxetine HCL 20 MG CAPSULE PO SCH (09:27)
[2022-05-24] MEDS: PANTOPRAZOLE SODIUM 40 MG DR TABLET PO SCH (09:27)
[2022-05-24] MEDS: QUEtiapine FUMARATE 25 MG TABLET PO SCH ×2 (09:28→20:26)
[2022-05-24] MEDS: BENZONATATE 100 MG CAPSULE PO SCH ×3 (09:28→20:26)
[2022-05-24] MEDS: MONTELUKAST SODIUM 10 MG TABLET PO SCH (09:28)
[2022-05-24] MEDS: DOXYCYCLINE HYCLATE 100 MG TABLET PO SCH ×2 (09:28→20:26)
[2022-05-24] MEDS: MULTIVITAMINS WITH MINERALS, THERAPEUTIC TABLET PO SCH (09:28)
[2022-05-24 09:59] VITALS: BP 118/66
[2022-05-24 16:30] VITALS: BP 106/62
[2022-05-24 20:18] VITALS: BP 98/57
[2022-05-25] MEDS: CLINDAMYCIN HCL 300 MG CAPSULE PO SCH ×4 (00:08→23:21)
[2022-05-25] MEDS: IPRATROPIUM BROMIDE 0.5 MG/2.5 ML NEB SOLUTION NEB SCH ×4 (02:30→20:19)
[2022-05-25] MEDS: ALBUTEROL SULFATE 2.5 MG/0.5 ML NEB SOLUTION NEB SCH ×4 (02:31→20:19)
[2022-05-25 05:08] VITALS: BP 93/51
[2022-05-25] MEDS: BENZONATATE 100 MG CAPSULE PO SCH ×3 (07:55→19:51)
[2022-05-25] MEDS: DOCUSATE SODIUM 100 MG CAPSULE PO SCH ×2 (07:55→19:52)
[2022-05-25] MEDS: MULTIVITAMINS WITH MINERALS, THERAPEUTIC TABLET PO SCH (07:55)
[2022-05-25] MEDS: GuaiFENesin SR 600 MG ER TABLET PO SCH ×2 (07:55→19:51)
[2022-05-25] MEDS: MONTELUKAST SODIUM 10 MG TABLET PO SCH (07:55)
[2022-05-25] MEDS: QUEtiapine FUMARATE 25 MG TABLET PO SCH ×2 (07:55→19:51)
[2022-05-25] MEDS: PANTOPRAZOLE SODIUM 40 MG DR TABLET PO SCH (07:56)
[2022-05-25] MEDS: DOXYCYCLINE HYCLATE 100 MG TABLET PO SCH ×2 (07:56→19:51)
[2022-05-25] MEDS: MEGESTROL ACETATE 40 MG TABLET PO SCH (07:56)
[2022-05-25] MEDS: FLUoxetine HCL 20 MG CAPSULE PO SCH (07:56)
[2022-05-25] MEDS: PredniSONE 20 MG TABLET PO SCH (07:56)
[2022-05-25] MEDS: LEVOFLOXACIN 250 MG TABLET PO SCH (07:57)
[2022-05-25] MEDS: FAMOTIDINE 20 MG TABLET PO SCH ×2 (07:57→19:51)
[2022-05-25] MEDS: HEPARIN SODIUM,PORCINE 5,000 UNITS/ML VIAL SQ SCH ×2 (07:57→19:55)
[2022-05-25] MEDS: FLUTICASONE/VILANTEROL 200-25 MCG/INH INHALER [14] IH SCH (07:57)
[2022-05-25] MEDS: GABAPENTIN 300 MG CAPSULE PO SCH ×2 (07:57→19:51)
[2022-05-25 07:59] VITALS: BP 106/68
[2022-05-25 15:11] VITALS: BP 100/63
[2022-05-25 19:25] VITALS: BP 105/71
[2022-05-26] MEDS: IPRATROPIUM BROMIDE 0.5 MG/2.5 ML NEB SOLUTION NEB SCH ×4 (01:29→20:00)
[2022-05-26] MEDS: ALBUTEROL SULFATE 2.5 MG/0.5 ML NEB SOLUTION NEB SCH ×4 (01:30→20:00)
[2022-05-26 04:20] VITALS: BP 115/70
[2022-05-26 07:38] LABS: BASOPHILS % (AUTO) 0.6 % (0.0-2.0); EOSINOPHILS % (AUTO) 0.2 % (1.0-6.0); HEMATOCRIT 30.4 % (36-46); HEMOGLOBIN 9.8 g/dL (12.0-16.0); LYMPHOCYTES # (AUTO) 2.4 K/uL (1.0-4.8); MEAN CORPUSCULAR HEMOGLOBIN 25.9 pg (26.0-34.0); MEAN CORPUSCULAR HGB CONC 32.1 G/dL (31.0-37.0); MEAN CORPUSCULAR VOLUME 81 fL (80-100); MONOCYTES # (AUTO) 0.5 K/uL (0.1-1.0); MONOCYTES % (AUTO) 3.7 % (2.0-9.0); NEUTROPHILS # (AUTO) 9.7 K/uL (1.8-7.7); NEUTROPHILS % (AUTO) 76.5 % (40.0-70.0); PLATELET COUNT (AUTO) 516 K/uL (150-450); RED BLOOD CELL COUNT(AUTO) 3.78 MIL/uL (4.00-5.20); RED CELL DISTRIBUTION WIDTH 21.6 % (11.5-14.5)
[2022-05-26 08:00] VITALS: BP 94/61
[2022-05-26] MEDS: FLUTICASONE/VILANTEROL 200-25 MCG/INH INHALER [14] IH SCH (08:11)
[2022-05-26] MEDS: FAMOTIDINE 20 MG TABLET PO SCH ×2 (08:11→20:09)
[2022-05-26] MEDS: PANTOPRAZOLE SODIUM 40 MG DR TABLET PO SCH (08:12)
[2022-05-26] MEDS: CLINDAMYCIN HCL 300 MG CAPSULE PO SCH ×2 (08:12→16:44)
[2022-05-26] MEDS: FLUoxetine HCL 20 MG CAPSULE PO SCH (08:12)
[2022-05-26] MEDS: BENZONATATE 100 MG CAPSULE PO SCH ×3 (08:12→20:09)
[2022-05-26] MEDS: MONTELUKAST SODIUM 10 MG TABLET PO SCH (08:12)
[2022-05-26] MEDS: MULTIVITAMINS WITH MINERALS, THERAPEUTIC TABLET PO SCH (08:12)
[2022-05-26] MEDS: DOXYCYCLINE HYCLATE 100 MG TABLET PO SCH ×2 (08:12→20:09)
[2022-05-26] MEDS: QUEtiapine FUMARATE 25 MG TABLET PO SCH ×2 (08:12→20:09)
[2022-05-26] MEDS: MEGESTROL ACETATE 40 MG TABLET PO SCH (08:12)
[2022-05-26] MEDS: DOCUSATE SODIUM 100 MG CAPSULE PO SCH ×2 (08:12→20:09)
[2022-05-26] MEDS: PredniSONE 5 MG TABLET PO SCH (08:13)
[2022-05-26] MEDS: GuaiFENesin SR 600 MG ER TABLET PO SCH ×2 (08:13→20:09)
[2022-05-26] MEDS: LEVOFLOXACIN 250 MG TABLET PO SCH (08:13)
[2022-05-26] MEDS: GABAPENTIN 300 MG CAPSULE PO SCH ×2 (08:13→20:09)
[2022-05-26] MEDS: HEPARIN SODIUM,PORCINE 5,000 UNITS/ML VIAL SQ SCH ×2 (08:20→20:10)
[2022-05-26 15:35] VITALS: BP 124/58
[2022-05-26 19:18] VITALS: BP 110/64
[2022-05-27] MEDS: CLINDAMYCIN HCL 300 MG CAPSULE PO SCH ×4 (00:02→23:42)
[2022-05-27] MEDS: IPRATROPIUM BROMIDE 0.5 MG/2.5 ML NEB SOLUTION NEB SCH ×4 (02:00→20:00)
[2022-05-27] MEDS: ALBUTEROL SULFATE 2.5 MG/0.5 ML NEB SOLUTION NEB SCH ×4 (02:00→20:00)
[2022-05-27 04:13] VITALS: BP 105/68
[2022-05-27] MEDS: PredniSONE 5 MG TABLET PO SCH (09:14)
[2022-05-27] MEDS: MEGESTROL ACETATE 40 MG TABLET PO SCH (09:14)
[2022-05-27] MEDS: FLUoxetine HCL 20 MG CAPSULE PO SCH (09:14)
[2022-05-27] MEDS: PANTOPRAZOLE SODIUM 40 MG DR TABLET PO SCH (09:14)
[2022-05-27] MEDS: LEVOFLOXACIN 250 MG TABLET PO SCH (09:14)
[2022-05-27] MEDS: DOXYCYCLINE HYCLATE 100 MG TABLET PO SCH ×2 (09:14→20:14)
[2022-05-27] MEDS: MONTELUKAST SODIUM 10 MG TABLET PO SCH (09:14)
[2022-05-27] MEDS: FAMOTIDINE 20 MG TABLET PO SCH ×2 (09:15→20:14)
[2022-05-27] MEDS: DOCUSATE SODIUM 100 MG CAPSULE PO SCH ×2 (09:15→20:14)
[2022-05-27] MEDS: MULTIVITAMINS WITH MINERALS, THERAPEUTIC TABLET PO SCH (09:15)
[2022-05-27] MEDS: HEPARIN SODIUM,PORCINE 5,000 UNITS/ML VIAL SQ SCH ×2 (09:15→20:14)
[2022-05-27] MEDS: QUEtiapine FUMARATE 25 MG TABLET PO SCH ×2 (09:15→20:14)
[2022-05-27] MEDS: BENZONATATE 100 MG CAPSULE PO SCH ×3 (09:15→20:13)
[2022-05-27] MEDS: GuaiFENesin SR 600 MG ER TABLET PO SCH ×2 (09:15→20:14)
[2022-05-27] MEDS: GABAPENTIN 300 MG CAPSULE PO SCH ×2 (09:15→20:14)
[2022-05-27] MEDS: FLUTICASONE/VILANTEROL 200-25 MCG/INH INHALER [14] IH SCH (09:16)
[2022-05-27 09:30] VITALS: BP 102/71
[2022-05-27 16:09] VITALS: BP 100/67
[2022-05-27 20:42] VITALS: BP 111/70
[2022-05-28] MEDS: ALBUTEROL SULFATE 2.5 MG/0.5 ML NEB SOLUTION NEB SCH ×4 (02:00→20:00)
[2022-05-28] MEDS: IPRATROPIUM BROMIDE 0.5 MG/2.5 ML NEB SOLUTION NEB SCH ×4 (02:00→20:00)
[2022-05-28 04:50] VITALS: BP 102/55
[2022-05-28 07:51] VITALS: BP 109/66
[2022-05-28] MEDS: FLUoxetine HCL 20 MG CAPSULE PO SCH (08:53)
[2022-05-28] MEDS: FAMOTIDINE 20 MG TABLET PO SCH ×2 (08:53→21:11)
[2022-05-28] MEDS: DOXYCYCLINE HYCLATE 100 MG TABLET PO SCH (08:53)
[2022-05-28] MEDS: MULTIVITAMINS WITH MINERALS, THERAPEUTIC TABLET PO SCH (08:53)
[2022-05-28] MEDS: GABAPENTIN 300 MG CAPSULE PO SCH (08:53)
[2022-05-28] MEDS: PredniSONE 5 MG TABLET PO SCH (08:54)
[2022-05-28] MEDS: GuaiFENesin SR 600 MG ER TABLET PO SCH ×2 (08:54→21:11)
[2022-05-28] MEDS: DOCUSATE SODIUM 100 MG CAPSULE PO SCH ×2 (08:54→21:12)
[2022-05-28] MEDS: MONTELUKAST SODIUM 10 MG TABLET PO SCH (08:54)
[2022-05-28] MEDS: BENZONATATE 100 MG CAPSULE PO SCH ×3 (08:54→21:11)
[2022-05-28] MEDS: FLUTICASONE/VILANTEROL 200-25 MCG/INH INHALER [14] IH SCH (08:54)
[2022-05-28] MEDS: QUEtiapine FUMARATE 25 MG TABLET PO SCH ×2 (08:54→21:12)
[2022-05-28] MEDS: MEGESTROL ACETATE 40 MG TABLET PO SCH (08:54)
[2022-05-28] MEDS: PANTOPRAZOLE SODIUM 40 MG DR TABLET PO SCH (08:54)
[2022-05-28] MEDS: CLINDAMYCIN HCL 300 MG CAPSULE PO SCH (08:54)
[2022-05-28] MEDS: LEVOFLOXACIN 250 MG TABLET PO SCH (08:57)
[2022-05-28] MEDS: HEPARIN SODIUM,PORCINE 5,000 UNITS/ML VIAL SQ SCH ×2 (09:02→21:11)
[2022-05-28 15:13] VITALS: BP 108/66
[2022-05-28] MEDS: GABAPENTIN 100 MG CAPSULE PO SCH (21:11)
[2022-05-28 22:10] VITALS: BP 111/58
[2022-05-29] MEDS: ALBUTEROL SULFATE 2.5 MG/0.5 ML NEB SOLUTION NEB SCH ×4 (02:00→19:34)
[2022-05-29] MEDS: IPRATROPIUM BROMIDE 0.5 MG/2.5 ML NEB SOLUTION NEB SCH ×4 (02:00→19:34)
[2022-05-29 06:54] VITALS: BP 103/72
[2022-05-29] MEDS: FAMOTIDINE 20 MG TABLET PO SCH ×2 (09:03→20:58)
[2022-05-29] MEDS: HEPARIN SODIUM,PORCINE 5,000 UNITS/ML VIAL SQ SCH ×2 (09:03→20:58)
[2022-05-29] MEDS: MEGESTROL ACETATE 40 MG TABLET PO SCH (09:03)
[2022-05-29] MEDS: GuaiFENesin SR 600 MG ER TABLET PO SCH ×2 (09:03→20:57)
[2022-05-29] MEDS: DOCUSATE SODIUM 100 MG CAPSULE PO SCH ×2 (09:03→20:58)
[2022-05-29] MEDS: BENZONATATE 100 MG CAPSULE PO SCH ×3 (09:03→20:58)
[2022-05-29] MEDS: QUEtiapine FUMARATE 25 MG TABLET PO SCH ×2 (09:04→20:57)
[2022-05-29] MEDS: FLUoxetine HCL 20 MG CAPSULE PO SCH (09:04)
[2022-05-29] MEDS: GABAPENTIN 100 MG CAPSULE PO SCH ×2 (09:04→20:57)
[2022-05-29] MEDS: FLUTICASONE/VILANTEROL 200-25 MCG/INH INHALER [14] IH SCH (09:04)
[2022-05-29] MEDS: MONTELUKAST SODIUM 10 MG TABLET PO SCH (09:06)
[2022-05-29] MEDS: MULTIVITAMINS WITH MINERALS, THERAPEUTIC TABLET PO SCH (09:06)
[2022-05-29] MEDS: PANTOPRAZOLE SODIUM 40 MG DR TABLET PO SCH (09:07)
[2022-05-29 10:34] VITALS: BP 113/70
[2022-05-29 17:17] VITALS: BP 110/67
[2022-05-29 20:54] VITALS: BP 104/55
[2022-05-30] MEDS: IPRATROPIUM BROMIDE 0.5 MG/2.5 ML NEB SOLUTION NEB SCH ×4 (02:00→20:30)
[2022-05-30] MEDS: ALBUTEROL SULFATE 2.5 MG/0.5 ML NEB SOLUTION NEB SCH ×4 (02:00→20:30)
[2022-05-30 05:04] VITALS: BP 100/61
[2022-05-30 08:41] VITALS: BP 104/77
[2022-05-30] MEDS: FAMOTIDINE 20 MG TABLET PO SCH ×2 (08:41→20:17)
[2022-05-30] MEDS: FLUTICASONE/VILANTEROL 200-25 MCG/INH INHALER [14] IH SCH (08:41)
[2022-05-30] MEDS: GuaiFENesin SR 600 MG ER TABLET PO SCH ×2 (08:41→20:18)
[2022-05-30] MEDS: DOCUSATE SODIUM 100 MG CAPSULE PO SCH ×2 (08:41→20:18)
[2022-05-30] MEDS: BENZONATATE 100 MG CAPSULE PO SCH ×3 (08:41→20:18)
[2022-05-30] MEDS: PANTOPRAZOLE SODIUM 40 MG DR TABLET PO SCH (08:41)
[2022-05-30] MEDS: MONTELUKAST SODIUM 10 MG TABLET PO SCH (08:42)
[2022-05-30] MEDS: HEPARIN SODIUM,PORCINE 5,000 UNITS/ML VIAL SQ SCH ×2 (08:42→20:19)
[2022-05-30] MEDS: QUEtiapine FUMARATE 25 MG TABLET PO SCH ×2 (08:42→20:17)
[2022-05-30] MEDS: MULTIVITAMINS WITH MINERALS, THERAPEUTIC TABLET PO SCH (08:42)
[2022-05-30] MEDS: GABAPENTIN 100 MG CAPSULE PO SCH ×2 (08:44→20:17)
[2022-05-30] MEDS: FLUoxetine HCL 20 MG CAPSULE PO SCH (08:44)
[2022-05-30] MEDS: MEGESTROL ACETATE 40 MG TABLET PO SCH (08:44)
[2022-05-30 16:00] VITALS: BP 100/66
[2022-05-30 19:33] VITALS: BP 103/61
[2022-05-31] MEDS: IPRATROPIUM BROMIDE 0.5 MG/2.5 ML NEB SOLUTION NEB SCH ×4 (02:12→20:54)
[2022-05-31] MEDS: ALBUTEROL SULFATE 2.5 MG/0.5 ML NEB SOLUTION NEB SCH ×4 (02:12→20:55)
[2022-05-31 03:58] VITALS: BP 99/59
[2022-05-31] MEDS: DOCUSATE SODIUM 100 MG CAPSULE PO SCH ×2 (08:27→21:07)
[2022-05-31] MEDS: GuaiFENesin SR 600 MG ER TABLET PO SCH ×2 (08:27→21:24)
[2022-05-31] MEDS: GABAPENTIN 100 MG CAPSULE PO SCH ×2 (08:27→21:07)
[2022-05-31] MEDS: MONTELUKAST SODIUM 10 MG TABLET PO SCH (08:27)
[2022-05-31] MEDS: PANTOPRAZOLE SODIUM 40 MG DR TABLET PO SCH (08:27)
[2022-05-31] MEDS: FLUoxetine HCL 20 MG CAPSULE PO SCH (08:27)
[2022-05-31] MEDS: MULTIVITAMINS WITH MINERALS, THERAPEUTIC TABLET PO SCH (08:27)
[2022-05-31] MEDS: BENZONATATE 100 MG CAPSULE PO SCH ×3 (08:27→21:07)
[2022-05-31] MEDS: QUEtiapine FUMARATE 25 MG TABLET PO SCH ×2 (08:28→21:07)
[2022-05-31] MEDS: MEGESTROL ACETATE 40 MG TABLET PO SCH (08:28)
[2022-05-31] MEDS: FAMOTIDINE 20 MG TABLET PO SCH ×2 (08:28→21:07)
[2022-05-31] MEDS: HEPARIN SODIUM,PORCINE 5,000 UNITS/ML VIAL SQ SCH ×2 (08:29→21:00)
[2022-05-31] MEDS: FLUTICASONE/VILANTEROL 200-25 MCG/INH INHALER [14] IH SCH (08:29)
[2022-05-31 09:04] VITALS: BP 99/52
[2022-05-31 20:00] VITALS: BP 108/57
[2022-06-01] MEDS: ALBUTEROL SULFATE 2.5 MG/0.5 ML NEB SOLUTION NEB SCH ×4 (01:35→20:28)
[2022-06-01] MEDS: IPRATROPIUM BROMIDE 0.5 MG/2.5 ML NEB SOLUTION NEB SCH ×4 (01:36→20:28)
[2022-06-01 05:16] VITALS: BP 116/66
[2022-06-01 08:11] VITALS: BP 98/65
[2022-06-01] MEDS: MULTIVITAMINS WITH MINERALS, THERAPEUTIC TABLET PO SCH (09:30)
[2022-06-01] MEDS: DOCUSATE SODIUM 100 MG CAPSULE PO SCH ×2 (09:30→20:19)
[2022-06-01] MEDS: BENZONATATE 100 MG CAPSULE PO SCH ×3 (09:30→20:19)
[2022-06-01] MEDS: HEPARIN SODIUM,PORCINE 5,000 UNITS/ML VIAL SQ SCH ×2 (09:31→20:20)
[2022-06-01] MEDS: ACETAMINOPHEN 325 MG TABLET PO PRN (09:31)
[2022-06-01] MEDS: PANTOPRAZOLE SODIUM 40 MG DR TABLET PO SCH (09:31)
[2022-06-01] MEDS: GuaiFENesin SR 600 MG ER TABLET PO SCH ×2 (09:31→20:19)
[2022-06-01] MEDS: FLUTICASONE/VILANTEROL 200-25 MCG/INH INHALER [14] IH SCH (09:31)
[2022-06-01] MEDS: FLUoxetine HCL 20 MG CAPSULE PO SCH (09:32)
[2022-06-01] MEDS: GABAPENTIN 100 MG CAPSULE PO SCH ×2 (09:32→20:23)
[2022-06-01] MEDS: MEGESTROL ACETATE 40 MG TABLET PO SCH (09:32)
[2022-06-01] MEDS: FAMOTIDINE 20 MG TABLET PO SCH ×2 (09:40→20:19)
[2022-06-01 10:43] LABS: BASOPHILS % (AUTO) 0.7 % (0.0-2.0); EOSINOPHILS % (AUTO) 0.4 % (1.0-6.0); HEMATOCRIT 33.1 % (36-46); HEMOGLOBIN 10.6 g/dL (12.0-16.0); LYMPHOCYTES # (AUTO) 1.9 K/uL (1.0-4.8); LYMPHOCYTES % (AUTO) 25.8 % (22.0-44.0); MEAN CORPUSCULAR HEMOGLOBIN 26.5 pg (26.0-34.0); MEAN CORPUSCULAR HGB CONC 32.1 G/dL (31.0-37.0); MEAN CORPUSCULAR VOLUME 83 fL (80-100); MONOCYTES # (AUTO) 0.5 K/uL (0.1-1.0); MONOCYTES % (AUTO) 6.8 % (2.0-9.0); NEUTROPHILS % (AUTO) 66.3 % (40.0-70.0); PLATELET COUNT (AUTO) 425 K/uL (150-450); RED BLOOD CELL COUNT(AUTO) 4.01 MIL/uL (4.00-5.20); RED CELL DISTRIBUTION WIDTH 23.9 % (11.5-14.5)
[2022-06-01 11:01] LABS: ANION GAP 6 mmol/L (8-16); CALCIUM, TOTAL 8.7 mg/dL (8.8-10.5); CARBON DIOXIDE 28 mmol/L (22-29); CHLORIDE 106 mmol/L (98-107); CREATININE 0.37 mg/dL (0.60-1.30); GLOMERULAR FILTR. RATE CALC > 60 mL/min (>60); GLUCOSE,RANDOM 129 mg/dL (70-110); POTASSIUM 3.3 mmol/L (3.5-5.1); SODIUM SERUM 140 mmol/L (136-145); UREA NITROGEN, BLOOD 13 mg/dL (7-18)
[2022-06-01 16:34] VITALS: BP 103/62
[2022-06-01 20:00] VITALS: BP 151/75
[2022-06-01] MEDS: QUEtiapine FUMARATE 25 MG TABLET PO SCH (20:23)
[2022-06-02] MEDS: ALBUTEROL SULFATE 2.5 MG/0.5 ML NEB SOLUTION NEB SCH ×4 (01:55→20:20)
[2022-06-02] MEDS: IPRATROPIUM BROMIDE 0.5 MG/2.5 ML NEB SOLUTION NEB SCH ×4 (01:55→20:20)
[2022-06-02 04:30] VITALS: BP 107/67
[2022-06-02] MEDS: MULTIVITAMINS WITH MINERALS, THERAPEUTIC TABLET PO SCH (09:00)
[2022-06-02] MEDS: FLUTICASONE/VILANTEROL 200-25 MCG/INH INHALER [14] IH SCH (09:00)
[2022-06-02] MEDS: FAMOTIDINE 20 MG TABLET PO SCH ×2 (09:00→20:02)
[2022-06-02] MEDS: FLUoxetine HCL 20 MG CAPSULE PO SCH (09:00)
[2022-06-02] MEDS: DOCUSATE SODIUM 100 MG CAPSULE PO SCH ×2 (09:00→20:06)
[2022-06-02] MEDS: GABAPENTIN 100 MG CAPSULE PO SCH ×2 (09:00→20:01)
[2022-06-02] MEDS: PANTOPRAZOLE SODIUM 40 MG DR TABLET PO SCH (09:00)
[2022-06-02] MEDS: MEGESTROL ACETATE 40 MG TABLET PO SCH (09:01)
[2022-06-02] MEDS: BENZONATATE 100 MG CAPSULE PO SCH ×3 (09:01→20:02)
[2022-06-02] MEDS: GuaiFENesin SR 600 MG ER TABLET PO SCH ×2 (09:01→20:02)
[2022-06-02] MEDS: HEPARIN SODIUM,PORCINE 5,000 UNITS/ML VIAL SQ SCH ×2 (09:01→20:06)
[2022-06-02] MEDS: POTASSIUM CHLORIDE 20 MEQ ER TABLET PO ONE ×2 (09:30→20:02)
[2022-06-02 10:24] VITALS: BP 112/58
[2022-06-02 16:39] VITALS: BP 101/59
[2022-06-02] MEDS: QUEtiapine FUMARATE 25 MG TABLET PO SCH (20:02)
[2022-06-02 20:09] VITALS: BP 98/54
[2022-06-03] MEDS: ALBUTEROL SULFATE 2.5 MG/0.5 ML NEB SOLUTION NEB SCH ×4 (02:00→19:30)
[2022-06-03] MEDS: IPRATROPIUM BROMIDE 0.5 MG/2.5 ML NEB SOLUTION NEB SCH ×4 (02:00→19:30)
[2022-06-03 04:10] VITALS: BP 103/61
[2022-06-03] MEDS: MULTIVITAMINS WITH MINERALS, THERAPEUTIC TABLET PO SCH ×2 (09:00→09:08)
[2022-06-03] MEDS: MEGESTROL ACETATE 40 MG TABLET PO SCH (09:08)
[2022-06-03] MEDS: FLUoxetine HCL 20 MG CAPSULE PO SCH (09:08)
[2022-06-03] MEDS: DOCUSATE SODIUM 100 MG CAPSULE PO SCH ×2 (09:08→20:09)
[2022-06-03] MEDS: FAMOTIDINE 20 MG TABLET PO SCH ×2 (09:08→20:08)
[2022-06-03] MEDS: PANTOPRAZOLE SODIUM 40 MG DR TABLET PO SCH (09:08)
[2022-06-03] MEDS: GABAPENTIN 100 MG CAPSULE PO SCH (09:08)
[2022-06-03] MEDS: BENZONATATE 100 MG CAPSULE PO SCH ×3 (09:08→20:08)
[2022-06-03] MEDS: HEPARIN SODIUM,PORCINE 5,000 UNITS/ML VIAL SQ SCH ×2 (09:09→20:08)
[2022-06-03] MEDS: GuaiFENesin SR 600 MG ER TABLET PO SCH ×2 (09:11→20:08)
[2022-06-03] MEDS: FLUTICASONE/VILANTEROL 200-25 MCG/INH INHALER [14] IH SCH (09:13)
[2022-06-03 10:36] VITALS: BP 100/49
[2022-06-03 16:03] VITALS: BP 102/53
[2022-06-03 19:49] VITALS: BP 101/65
[2022-06-03] MEDS: QUEtiapine FUMARATE 25 MG TABLET PO SCH (20:07)
[2022-06-04] MEDS: IPRATROPIUM BROMIDE 0.5 MG/2.5 ML NEB SOLUTION NEB SCH ×3 (02:00→14:16)
[2022-06-04] MEDS: ALBUTEROL SULFATE 2.5 MG/0.5 ML NEB SOLUTION NEB SCH ×3 (02:00→14:16)
[2022-06-04 04:51] VITALS: BP 105/65
[2022-06-04] MEDS: FLUTICASONE/VILANTEROL 200-25 MCG/INH INHALER [14] IH SCH (08:03)
[2022-06-04] MEDS: MEGESTROL ACETATE 40 MG TABLET PO SCH (09:14)
[2022-06-04] MEDS: PANTOPRAZOLE SODIUM 40 MG DR TABLET PO SCH (09:14)
[2022-06-04] MEDS: BENZONATATE 100 MG CAPSULE PO SCH ×3 (09:14→17:16)
[2022-06-04] MEDS: FLUoxetine HCL 20 MG CAPSULE PO SCH (09:14)
[2022-06-04] MEDS: FAMOTIDINE 20 MG TABLET PO SCH (09:14)
[2022-06-04] MEDS: MULTIVITAMINS WITH MINERALS, THERAPEUTIC TABLET PO SCH (09:15)
[2022-06-04] MEDS: HEPARIN SODIUM,PORCINE 5,000 UNITS/ML VIAL SQ SCH (09:15)
[2022-06-04] MEDS: GuaiFENesin SR 600 MG ER TABLET PO SCH (09:15)
[2022-06-04] MEDS: DOCUSATE SODIUM 100 MG CAPSULE PO SCH (09:15)
[2022-06-04 09:44] VITALS: BP 93/44
[2022-06-04] MEDS ORDERED: BENZ-227 PO (14:09)
[2022-06-04] MEDS ORDERED: DOCU-385 PO (14:09)
[2022-06-04] MEDS ORDERED: FAMO20 PO (14:10)
[2022-06-04] MEDS ORDERED: GUAIF600 PO (14:10)
[2022-06-04] MEDS ORDERED: MEGE40TA33 PO (14:11)
[2022-06-04] MEDS ORDERED: HEPA500018 SQ (14:11)
[2022-06-04] MEDS ORDERED: QUET25TA PO (14:12)
[2022-06-04] MEDS ORDERED: TRAM-559 PO (14:12)
== END 2022-06-04 17:32 | DRG 871 ==
LOC: 6S 22:35
PROVIDERS: ADMIT Internal Medicine; ATTEND Internal Medicine
DX: A41.9 Sepsis, unspecified organism (principal); E43 Unspecified severe protein-calorie malnutrition; J96.01 Acute respiratory failure with hypoxia; J69.0 Pneumonitis due to inhalation of food and vomit; J45.901 Unspecified asthma with (acute) exacerbation; J44.0 Chronic obstructive pulmonary disease with (acute) lower respiratory infection; J44.1 Chronic obstructive pulmonary disease with (acute) exacerbation; Z68.1 Body mass index [BMI] 19.9 or less, adult; K21.9 Gastro-esophageal reflux disease without esophagitis; E87.6 Hypokalemia; G43.909 Migraine, unspecified, not intractable, without status migrainosus; F99 Mental disorder, not otherwise specified; F17.200 Nicotine dependence, unspecified, uncomplicated; D72.829 Elevated white blood cell count, unspecified; F41.9 Anxiety disorder, unspecified; F25.1 Schizoaffective disorder, depressive type; Z91.199 Patient's noncompliance with other medical treatment and regimen due to unspecified reason; Z76.5 Malingerer [conscious simulation]; R62.7 Adult failure to thrive; R53.81 Other malaise
CPT/HCPCS: 36600; 71045; 71250; 80048; 81001; 82805; 85025; 87040; 94640; 97168; 97530; J1644; J1956; J2270; J2930; J3490; J7030; J7040; J7050; Q9967; 36415-L1; 36415-TC; J7613; Z7610